=== PATIENT | female | born 1935 | race Caucasian/White ===

== ENCOUNTER 2017-08-03 08:00 | Day surgery (SDC) | payer MEDICARE, BC ==
[2017-08-01 08:55] VITALS: BMI 30.4
[~2017-08-03 08:00] MED LIST: LACTATED RINGERS 1,000 ML IV SCH
[2017-08-03] MEDS ORDERED: LIDOCAINE 1% 20 ML VIAL (10MG/ML) FOR IV START INTRADERMA ONE (08:12)
[2017-08-03 08:24] VITALS: RESP 16; TEMP 98.6
[2017-08-03] MEDS ORDERED: PROPOFOL 10 MG/ML 20 ML VIAL IV ONE (09:08)
--- NOTE | 2017-08-03 09:28 | P.PCN ---
Date of Procedure: 08/03/17 Procedure(s) Performed: BRIEF HISTORY: Patient is a 82-year-old [place] female, scheduled for an elective colonoscopy as a part of screening for colorectal neoplasia. PROCEDURE PERFORMED: Colonoscopy. PREOPERATIVE DIAGNOSIS: Screening for colon cancer. IV sedation per Anesthesia. PROCEDURE: After informed consent was obtained, the patient, was brought into the endoscopy unit. IV sedation was administered by Anesthesia under continuous monitoring. Digital rectal examination was normal. Initially the Olympus CF- 160 flexible video colonoscope was then inserted in the rectum, gradually advanced into the cecum without any difficulty. Careful examination was performed as the scope was gradually being withdrawn. Ileocecal valve and the appendiceal orifice were visualized and appeared normal. Prep was excellent. Mucosa of the cecum, ascending colon, transverse colon, descending colon, sigmoid colon, and rectum appeared normal. Moderate left sided diverticulosis seen. Retroflexion was performed in the rectum and no lesions were seen. The patient tolerated the procedure well. IMPRESSION: Normal-appearing colon from rectum to cecum with no evidence of colorectal neoplasia . Moderate sigmoidal diverticulosis. RECOMMENDATIONS: Findings of this examination were discussed with the patient as well as a family. She was advised to be on a high-fiber diet and take fiber supplements a regular basis..
[2017-08-03 09:49] VITALS: BP 128/72; PULSE 60
== END 2017-08-03 10:19 | disposition home or self-care (01) ==
LOC: ORWHC2ENDO 08:00
PROVIDERS: ATTEND Internal Medicine Gastroenterology
DX: Z12.11 Encounter for screening for malignant neoplasm of colon (principal); K57.30 Diverticulosis of large intestine without perforation or abscess without bleeding; I10 Essential (primary) hypertension; Z79.899 Other long term (current) drug therapy; Z88.0 Allergy status to penicillin; Z88.2 Allergy status to sulfonamides
CPT/HCPCS: J2704; G0121

== ENCOUNTER → 2017-09-19 | Outpatient (CLI) | payer MEDICARE, BC ==
--- NOTE | 2017-09-21 10:32 | MM ---
Reason for exam: screening (asymptomatic). Last mammogram was performed 1 year and 4 months ago. History: Patient is postmenopausal, has history of breast cancer at age 70, had previous chest radiation therapy at age 70, and had first child at age 37. Family history of breast cancer in sister at age 60. Lumpectomy of the right breast, August 07, 2005. Malignant right mammotome panel of the right breast, July 19, 2005. Radiation therapy of the right breast, 2005. Benign stereotactic core biopsy of the right breast, April 10, 2003. Took estrogen for 30 years 10 months beginning at age 40. Physical Findings: A clinical breast exam by your physician is recommended on an annual basis and results should be correlated with mammographic findings. MG 3D Screening Mammo W/Cad Bilateral CC and MLO view(s) were taken. Prior study comparison: May 31, 2016, bilateral MG 3d diag mammo w/cad [facility]. May 26, 2015, bilateral MG 3d diag mammo w/cad [facility]. The breast tissue is heterogeneously dense. This may lower the sensitivity of mammography. Finding #1: There is a typically benign multiple, lobulated, circumscribed round masses in the left breast back to 2014. Finding #2: There are typically benign calcifications in both breasts. Post therapy changes on the right breast. ASSESSMENT: Benign, BI-RAD 2 RECOMMENDATION: Routine screening mammogram of both breasts in 1 year.
== END | disposition home or self-care (01) ==
LOC: RADMAMWWP 08:23
PROVIDERS: ATTEND Family Medicine
DX: Z12.31 Encounter for screening mammogram for malignant neoplasm of breast (principal)
CPT/HCPCS: 77063; 77067

== ENCOUNTER → 2018-09-25 | Outpatient (CLI) | payer MEDICARE, BC ==
--- NOTE | 2018-09-26 11:19 | MM ---
Reason for exam: screening (asymptomatic). Last mammogram was performed 1 year ago. History: Patient is postmenopausal, has history of breast cancer at age 70, had previous chest radiation therapy at age 70, and had first child at age 37. Family history of breast cancer in sister at age 60. Lumpectomy of the right breast, August 07, 2005. Malignant right mammotome panel of the right breast, July 19, 2005. Radiation therapy of the right breast, 2005. Benign stereotactic core biopsy of the right breast, April 10, 2003. Took estrogen for 30 years 10 months beginning at age 40. Physical Findings: A clinical breast exam by your physician is recommended on an annual basis and results should be correlated with mammographic findings. MG 3D Screening Mammo W/Cad Bilateral CC and MLO view(s) were taken. Prior study comparison: September 19, 2017, bilateral MG 3d screening mammo w/cad. May 31, 2016, bilateral MG 3d diag mammo w/cad [facility]. The breast tissue is heterogeneously dense. This may lower the sensitivity of mammography. Finding #1: Architectural distortion in the right breast consistent with previous surgery. Finding #2: There are typically benign calcifications in both breasts. Previous mammotome biopsy in the right breast. There is a 10mm oval density left retroareolar region. ASSESSMENT: Incomplete: need additional imaging evaluation, BI-RAD 0 RECOMMENDATION: Special view mammogram of the left breast. If lesion persists on supplemental views, image directed ultrasound is recommended. [facility] will attempt to contact patient to return for supplemental views and ultrasound if indicated.
== END | disposition home or self-care (01) ==
LOC: RADMAMWWP 08:00
PROVIDERS: ATTEND Family Medicine
DX: Z12.31 Encounter for screening mammogram for malignant neoplasm of breast (principal)
CPT/HCPCS: 77063; 77067

== ENCOUNTER → 2018-09-30 | Outpatient (CLI) | payer MEDICARE, BC ==
--- NOTE | 2018-10-01 07:41 | MM ---
Reason for exam: additional evaluation requested from abnormal screening. Last mammogram was performed less than 1 month ago. History: Patient is postmenopausal, has history of breast cancer at age 70, had previous chest radiation therapy at age 70, and had first child at age 37. Family history of breast cancer in sister at age 60. Lumpectomy of the right breast, August 07, 2005. Malignant right mammotome panel of the right breast, July 19, 2005. Radiation therapy of the right breast, 2005. Benign stereotactic core biopsy of the right breast, April 10, 2003. Took estrogen for 30 years 10 months beginning at age 40. Physical Findings: Nurse did not find any significant physical abnormalities on exam. MG 3D Work Up W/Cad LT Spot compression CC, spot compression MLO, and LM view(s) were taken of the left breast. Prior study comparison: September 25, 2018, bilateral MG 3d screening mammo w/cad. September 19, 2017, bilateral MG 3d screening mammo w/cad. The breast tissue is heterogeneously dense. This may lower the sensitivity of mammography. Circumscribed nodule centrally persists, noted to be stable from multiple priors. These results were verbally communicated with the patient and result sheet given to the patient on 09/30/18. ASSESSMENT: Benign, BI-RAD 2 RECOMMENDATION: Return to routine screening mammogram schedule for both breasts.
== END | disposition home or self-care (01) ==
LOC: RADMAMWWP 14:18
PROVIDERS: ATTEND Family Medicine
DX: R92.8 Other abnormal and inconclusive findings on diagnostic imaging of breast (principal)
CPT/HCPCS: 77065; G0279; 77061

== ENCOUNTER → 2019-08-06 | Day surgery (SDC) | payer MEDICARE, BC ==
[2019-08-04 09:59] VITALS: BMI 31.2
[~2019-08-06] MED LIST changes: +ALPRAZolam 0.25 MG TAB PO PRN; +ALPRAZolam 0.5 MG TAB PO PRN; +ASPIRIN 325 MG TAB PO ONE; +ATORVASTATIN 80 MG TAB PO ONE; +HEPARIN SODIUM 1,000 UN/ML (10ML VL) ONE; +IOPAMIDOL-370 125ML BTL INJ ONE; +IV FLUID CONTINUATION 1,000 ML IV ONE; -LACTATED RINGERS 1,000 ML IV SCH; +LIDOCAINE 1% INJ 10MG/ML (20 ML MDV) ONE; +LIDOCAINE 1% INJ 10MG/ML (20 ML MDV) SQ ONE; +MIDAZOLAM 2 MG/2 ML VIAL IV ONE; +NITROGLYCERIN SL TABS 0.4 MG TAB SUBLINGUAL PRN; +RX INFO: IV CONTRAST WAS GIVEN 1 EACH MISC MISCELLANE PRN; +SODIUM CHLORIDE 0.9% 1,000 ML IV SCH; +SODIUM CHLORIDE 0.9% 1,000 ML in EMPTY BAG 1 BAG IV ONE; +VERAPAMIL 2.5 MG/ML 2 ML AMP ONE; +amLODIPine 5 MG TAB PO SCH
[2019-08-06 11:16] VITALS: TEMP 97.8
[2019-08-06] MEDS: BENZOCAINE SPRAY 1 CAN MUCOUS MEM ONE ×2 (12:07→12:12)
[2019-08-06 12:11] VITALS: RESP 16
[2019-08-06] MEDS: fentaNYL (PF) 50 MCG/ML 2 ML AMP IV ONE ×2 (12:21→12:23)
[2019-08-06] MEDS: VERAPAMIL SYRINGE (5 MG/10 ML) INTRAARTER ONE ×2 (13:05→13:23)
--- NOTE | 2019-08-06 13:14 | ECHOT ---
TRANSESOPHAGEAL ECHOCARDIOGRAM INDICATION: Evaluation of aortic valve. PROCEDURE: After explaining the procedure to the patient, its risks and complication. Blood pressure, heart rate, O2 saturation was monitored. The throat was sprayed with Cetacaine. He received 2 mg intravenous Versed, 50 mcg intravenous fentanyl. The probe was introduced into the esophagus without difficulty. Images were obtained. The probe was removed. There was no immediate complication. FINDINGS: Left atrial size is mildly dilated. Left atrial appendage is normal. The left ventricular size and systolic function normal. Concentric left ventricular hypertrophy was noted. The aortic valve is a tricuspid valve with severe calcification, reduced opening. By planimetry the valve area is 0.7 cm2. Mild calcification was noted. The tricuspid valve is normal, descending thoracic aorta revealed mild atherosclerotic changes. No pericardial effusion was noted. Contrast bubble study revealed no shunting across the interatrial septum. Doppler pulse wave and color Doppler obtained and revealed a mild mitral and tricuspid regurgitation as well as aortic regurgitation. The peak gradient across the aortic valve was 76 minute Hg with a mean of 41 mmHg consistent with severe aortic stenosis. There was no shunting by color Doppler study. CONCLUSION: 1. Dilated left atrium. 2. Normal left ventricular size and systolic function. Concentric left ventricular hypertrophy. 3. Mitral anulus calcification with mild mitral regurgitation. 4. Mild tricuspid and aortic regurgitation. 5. 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 6. Mild atherosclerotic changes of the descending thoracic aorta. 7. No pericardial effusion. 8. No shunting across the interatrial septum. MMODL / IJN: [id number] /
[2019-08-06 13:38] LABS: O2 Sat Blood Gas 64.5 %
[2019-08-06 13:39] LABS: O2 Sat Blood Gas 68.4 %
[2019-08-06 13:40] LABS: O2 Sat Blood Gas 92.1 %
--- NOTE | 2019-08-06 16:06 | CC ---
CARDIAC CATHETERIZATION REPORT DATE OF PROCEDURE: 08/06/2019 Mrs. Ramos is an 84-year-old female with a known history of hypertension, history of aortic stenosis with evidence of progression of aortic stenosis with symptoms of dyspnea on exertion. In view of that, recommendation was made regarding cardiac catheterization. The procedure, its risks and complications were discussed with the patient, who was in full understanding and agreement. PROCEDURE DESCRIPTION: Patient was brought to the laboratory equipment cleaner in a fasting, semi-sedated state after receiving fentanyl and Benadryl and achieving a moderate conscious sedated state. Using Xylocaine anesthesia and Seldinger technique, a 6-Divehi sheath was introduced in the right radial artery. Subsequently, using guidewire exchange technique, the basilic vein intravenous sheath was exchanged for a 6-Divehi sheath. Following that, right heart catheterization was performed using [place]-Arlene catheter. Multiple pressures and samples were obtained. Cardiac output by thermodilution was calculated. Following that, selective right and left coronary angiography was performed using a 5- Divehi 3- 1/2 bend right and left Anette catheters. Multiple views were taken of the arteries, including hemiaxial views. Following that, catheter and sheath were removed. Hemostasis was obtained with deployment of a TR band. There was no immediate complication. Patient was returned to her room in stable condition. Of note, the patient received 3500 units of intravenous heparin as well as intra-arterial verapamil. FINDINGS: SATURATION: Right atrial saturation was 65%, pulmonary artery saturation 68%, arterial saturation 92%, pulmonary artery systolic pressure of 50 with a diastolic of 15 and a mean of 25 mmHg. Right ventricular systolic pressure of 41 with an end-diastolic of 6. Right atrial A-wave of 14, V-wave of 12, with a mean of 8 mmHg. Cardiac output by thermodilution of 4.9 L/minute. Cardiac output by Daniel 3.7 L/min. CORONARY ARTERIES: LEFT MAIN: This is a short-sized vessel bifurcating into left circumflex, left anterior descending artery. Left main coronary artery has no evidence of high-grade stenosis. LEFT ANTERIOR DESCENDING ARTERY: This is a large-sized vessel reaching toward the apex with a wrap around the apex segment, tortuous throughout its course, giving rise to a moderately sized diagonal branch proximally. The left anterior descending artery as well as its branches have no evidence of obstructive coronary artery disease. LEFT CIRCUMFLEX: This is a nondominant, large-sized vessel giving rise to a large obtuse marginal branch. The left circumflex as well as its branches have no evidence of obstructive coronary artery disease. RIGHT CORONARY ARTERY: This is a large dominant vessel bifurcating distally into PDA and posterolateral segment and branches. The right coronary artery as well as its branches have no evidence of obstructive coronary artery disease. CONCLUSION: 1. Normal coronary arteries. 2. Mild pulmonary hypertension. RECOMMENDATIONS: In view of the finding of her severe aortic stenosis, the patient will be evaluated for aortic valve replacement by TAVR. Those findings and recommendation were discussed with the patient, and she is in full understanding and agreement. Duration of procedure was 26 minutes. MMSTEPANL / IJN: [id number] / BRIAN
--- NOTE | 2019-08-06 16:12 | LTR ---
August 06, 2019 To: Dr. Jarquin Re: Sherri Ramos (39) Dear Dr. Jarquin, I had the pleasure of performing cardiac catheterization on Mrs. Ramos at [facility] on August 06, 2019, and a full copy of the procedure note will be forwarded to you. In brief, she was found to have no evidence of obstructive coronary artery disease with severe aortic stenosis. In view of that, I would recommend proceeding with evaluation for aortic valve replacement. I will keep you updated on her progress. Thank you for allowing me to participate in her care. Please feel free to call with any questions. Sincerely yours, Doug Stephen MD MMSTEPANL / SVETLANAN: [id number] /
[2019-08-06 18:28] VITALS: BP 135/62; PULSE 75
== END | disposition home or self-care (01) ==
LOC: CATHCVL 10:53
PROVIDERS: ATTEND Internal Medicine Interventional Cardiology
DX: I08.3 Combined rheumatic disorders of mitral, aortic and tricuspid valves (principal); I27.20 Pulmonary hypertension, unspecified; I70.0 Atherosclerosis of aorta; I10 Essential (primary) hypertension; Z88.0 Allergy status to penicillin; Z88.2 Allergy status to sulfonamides; Z79.899 Other long term (current) drug therapy
CPT/HCPCS: 93312; 93320; 93325; 93456; 85018; 82810; C1769 ×2; C1751; C1894; J2250; J2001; J3010; J1644; Q9967

== ENCOUNTER → 2019-11-06 | Outpatient (CLI) | payer MEDICARE, BC ==
[2019-11-06 09:07] LABS: HCT 39.9 % (34.0-46.0); HGB 12.7 gm/dL (11.4-16.0); MCHC 31.8 g/dL (31.0-37.0); MCV 91.3 fL (80.0-100.0); Platelet Count 302 k/uL (150-450); RBC 4.37 m/uL (3.80-5.40); RDW 13.5 % (11.5-15.5); WBC 5.7 k/uL (3.8-10.6)
[2019-11-06 19:02] LABS: African American GFR (CKD) 98.4 (60.0-200.0); Albumin 4.1 g/dL (3.80-4.90); Albumin/Globulin Ratio 1.95 (1.60-3.17); Anion Gap 9.8 mmol/L (4.00-12.00); BUN/Creat Ratio 26.67 Ratio (12.00-20.00); Calcium 9.6 mg/dL (8.7-10.3); Carbon Dioxide 28.2 mmol/L (21.6-31.8); Globulin 2.1 g/dL (1.6-3.3); Non-African American GFR(CKD) 84.9 (60.0-200.0); Potassium 4.3 mmol/L (3.5-5.5); Total Bilirubin 0.5 mg/dL (0.3-1.2); Total Protein 6.2 g/dL (6.2-8.2)
== END | disposition home or self-care (01) ==
LOC: LABWHC1 08:24
PROVIDERS: ATTEND Student in an Organized Health Care Education/Training Program
DX: R06.02 Shortness of breath (principal)
CPT/HCPCS: 36415; 80053; 83880; 85027

== ENCOUNTER → 2021-01-14 | Outpatient (CLI) | payer MEDICARE, BC ==
--- NOTE | 2021-01-18 10:15 | MM ---
Reason for exam: screening (asymptomatic). Last mammogram was performed 1 year ago. History: Patient is postmenopausal, has history of breast cancer at age 70, had previous chest radiation therapy at age 70, and had first child at age 37. Family history of breast cancer in sister at age 60. Lumpectomy of the right breast, August 07, 2005. Malignant right mammotome panel of the right breast, July 19, 2005. Radiation therapy of the right breast, 2005. Benign stereotactic core biopsy of the right breast, April 10, 2003. Took estrogen for 30 years 10 months beginning at age 40. Physical Findings: A clinical breast exam by your physician is recommended on an annual basis and results should be correlated with mammographic findings. MG 3D Screening Mammo W/Cad Bilateral CC and MLO view(s) were taken. Prior study comparison: January 13, 2020, bilateral MG 3d screening mammo w/cad. September 25, 2018, bilateral MG 3d screening mammo w/cad. September 19, 2017, bilateral MG 3d screening mammo w/cad. May 31, 2016, bilateral MG 3d diag mammo w/cad [facility]. The breast tissue is heterogeneously dense. This may lower the sensitivity of mammography. Previous mammotome biopsy in the right breast. There is chronic nodularity in the left breast compared to 2016 on the CC view. Post surgical and post therapy change right breast. No significant changes when compared with prior studies. ASSESSMENT: Benign, BI-RAD 2 RECOMMENDATION: Routine screening mammogram of both breasts in 1 year.
== END | disposition home or self-care (01) ==
LOC: RADMAMWWP 07:59
PROVIDERS: ATTEND Family Medicine
DX: Z12.31 Encounter for screening mammogram for malignant neoplasm of breast (principal); Z78.0 Asymptomatic menopausal state; Z80.3 Family history of malignant neoplasm of breast
CPT/HCPCS: 77063; 77067

== ENCOUNTER → 2022-01-27 | Outpatient (CLI) | payer MEDICARE, BC ==
--- NOTE | 2022-01-30 08:50 | MM ---
Reason for Exam: Screening (asymptomatic). Last mammogram was performed 1 year(s) and 1 month(s) ago. Patient History: Menarche at age 14. First Full-Term at age 37. Late child-bearing (after 30). Left ovary removed at age 40. Right ovary removed at age 40. Hysterectomy at age 40. Postmenopausal. Breast cancer, age 70. Previous chest radiation therapy at age 70. Estrogen for 30 years, 10 months, from age 40 until age 70. 08/07/2005, Lumpectomy on the Right side. 07/19/2005, Malignant Core Biopsy on the right side. 04/10/2003, Benign Stereotactic Core Biopsy on the right side. 2005, Radiation Therapy on the right side. Sister had breast cancer, age 60. Prior Study Comparison: 09/30/2018 Left Diagnostic Mammogram, [facility]. 01/13/2020 Bilateral Screening Mammogram, [facility]. 01/14/2021 Bilateral Screening Mammogram, [facility]. Tissue Density: The breast tissue is heterogeneously dense. This may lower the sensitivity of mammography. Findings: Analyzed By CAD. Postsurgical and posttreatment changes right breast with fat necrosis calcifications. Microclip anterior right breast from prior biopsy. Unchanged slight nipple retraction on the right. Scattered benign coil cyst calcifications and some secretory calcifications. Vascular calcifications upper outer quadrant right breast. Chronic nodularity central left breast more apparent on 3-D images. No significant change from prior exams. Overall Assessment: Benign, BI-RAD 2 Management: Screening Mammogram of both breasts in 1 year. 1. Patient should continue monthly self breast exams. 2. A clinical breast exam by your physician is recommended on an annual basis. 3. This exam should not preclude additional follow-up of suspicious palpable abnormalities. Electronically signed and approved by: Champ Washington M.D. Radiologist
== END | disposition home or self-care (01) ==
LOC: RADMAMWWP 07:52
PROVIDERS: ATTEND Family Medicine
DX: Z12.31 Encounter for screening mammogram for malignant neoplasm of breast (principal); Z78.0 Asymptomatic menopausal state; Z85.3 Personal history of malignant neoplasm of breast; Z80.3 Family history of malignant neoplasm of breast
CPT/HCPCS: 77063; 77067

== ENCOUNTER → 2023-01-29 | Outpatient (CLI) | payer MEDICARE, BC ==
--- NOTE | 2023-01-29 09:50 | BD ---
EXAMINATION TYPE: Axial Bone Density DATE OF EXAM: 01/29/2023 CLINICAL HISTORY: 87 years old Female. ICD-10 CODE: Z78.0ASYMPTOMATIC MENOPAUSAL STATE Height: 59.2 Weight: 161 FRAX RISK QUESTIONS: Family History (Parent hip fracture): sister with hip fx History of Fracture in Adulthood: yes Secondary Osteoporosis: yes 3. Menopause before 45: 40 yrs, old RISK FACTORS HISTORY OF: hx of lt ankle fx as an adult Family History of Osteoporosis: yes, sister with fx Postmenopausal woman: yes, at age 40 yrs old, with hormones for about 20 yrs , Lost more than 2 inches in height since high school: yes Frequent falls: unsteady Hyperparathyroidism: no Adrenal Insufficiency: no MEDICATIONS: Additional Medications: bp meds, hx of radiation, vit d and calcium, Additional History: hx of breast cancer, hypertension, EXAM MEASUREMENTS: Bone mineral densitometry was performed using the [employer] System. Bone mineral density as measured about the Lumbar spine is: ----- L1-L4(G/cm2): 1.203 T Score Values are as follows: ----- L1: 0.8 ----- L2: -0.1 ----- L3: 0.1 ----- L4: -0.1 ----- L1-L4: 0.2 Z Score Values are as follows: ----- L1: 2.4 ----- L2: 1.6 ----- L3: 1.7 ----- L4: 1.6 ----- L1-L4: 1.9 Bone mineral density has: Increased 9.9% since study of: 07.05.2009 Bone mineral density about the R hip (g/cm2): 0.969 Bone mineral density about the L hip (g/cm2): 0.927 T Score values are as follows: -----R Neck: -1.6 -----L Neck: -1.8 -----R Total: -0.3 -----L Total: -0.6 Z Score values are as follows: -----R Neck: 0.6 -----L Neck: 0.4 -----R Total: 1.8 -----L Total: 1.5 Bone mineral density has: Increased 1.4% since study of: 07.05.2009 FRAX%s: The graph provided illustrates a 20.2% chance for a major osteoporotic fx and a 5.4% chance f or the hips probability for fx in 10 years time. IMPRESSION: Osteopenia (T Score between -2.5 and -1). There is slightly increased risk of fracture and the patient may be considered for treatment. Re-Screen 2-5 years. NOTE: T-SCORE=SD OF THE YOUNG ADULT MEAN.
--- NOTE | 2023-01-29 10:24 | MM ---
Reason for Exam: Screening (asymptomatic). Last screening mammogram was performed 12 month(s) ago. Patient History: Menarche at age 14. First Full-Term at age 37. Late child-bearing (after 30). Left ovary removed at age 40. Right ovary removed at age 40. Hysterectomy at age 40. Postmenopausal. Breast cancer, age 70. Previous chest radiation therapy at age 70. Estrogen for 30 years, 10 months, from age 40 until age 70. 08/07/2005, Lumpectomy on the Right side. 07/19/2005, Malignant Core Biopsy on the right side. 04/10/2003, Benign Stereotactic Core Biopsy on the right side. 2005, Radiation Therapy on the right side. Sister had breast cancer, age 60. Prior Study Comparison: 01/13/2020 Bilateral Screening Mammogram, [facility]. 01/14/2021 Bilateral Screening Mammogram, [facility]. 01/27/2022 Bilateral MG 3D screening mammo w/cad, [facility]. Tissue Density: The breast tissue is heterogeneously dense. This may lower the sensitivity of mammography. Findings: Analyzed By CAD. Postprocedural changes to the right breast. Benign-appearing calcifications bilaterally. There is no suspicious group of microcalcifications or new suspicious mass in either breast. Overall Assessment: Benign, BI-RAD 2 Management: Screening Mammogram of both breasts in [address] [facility] will attempt to contact patient to return for supplemental views and ultrasound if indicated. Patient should continue monthly self-breast exams. A clinical breast exam by your physician is recommended on an annual basis. This exam should not preclude additional follow-up of suspicious palpable abnormalities. Note on Luh scores and lifetime risk: 1. A Luh score greater than 3% is considered moderate risk. If this is the case, consider specialist referral to assess eligibility for a risk reducing agent. 2. If overall lifetime risk for the development of breast cancer is 20% or higher, the patient may qualify for future screening with alternating mammogram and breast MRI. Electronically signed and approved by: Juan Antonio Park DO
== END | disposition home or self-care (01) ==
LOC: RADMAMWWP 07:56
PROVIDERS: ATTEND Family Medicine
DX: Z12.31 Encounter for screening mammogram for malignant neoplasm of breast (principal); Z13.820 Encounter for screening for osteoporosis; M85.89 Other specified disorders of bone density and structure, multiple sites; Z78.0 Asymptomatic menopausal state
CPT/HCPCS: 77063; 77067; 77080

== ENCOUNTER → 2024-01-31 | Outpatient (CLI) | payer MEDICARE, BC ==
--- NOTE | 2024-02-20 12:48 | MM ---
Reason for Exam: Hx of breast cancer, conservation therapy. Last screening mammogram was performed 12 month(s) ago. Patient History: Menarche at age 14. First Full-Term at age 37. Late child-bearing (after 30). Left ovary removed at age 40. Right ovary removed at age 40. Hysterectomy at age 40. Postmenopausal. Breast cancer, age 70. Previous chest radiation therapy at age 70. Estrogen for 30 years, 10 months, from age 40 until age 70. 08/07/2005, Lumpectomy on the Right side. 07/19/2005, Malignant Core Biopsy on the right side. 04/10/2003, Benign Stereotactic Core Biopsy on the right side. 2005, Radiation Therapy on the right side. Sister had breast cancer, age 60. Prior Study Comparison: 05/31/2016 Bilateral Diagnostic Mammogram, [facility]. 09/19/2017 Bilateral Screening Mammogram, [facility]. 09/25/2018 Bilateral Screening Mammogram, [facility]. 09/30/2018 Left Diagnostic Mammogram, [facility]. 01/13/2020 Bilateral Screening Mammogram, [facility]. 01/14/2021 Bilateral Screening Mammogram, [facility]. 01/27/2022 Bilateral MG 3D screening mammo w/cad, [facility]. 01/29/2023 Bilateral MG 3D screening mammo w/cad, [facility]. Tissue Density: The breasts are heterogeneously dense, which may obscure small masses. Findings: Analyzed By CAD. Right breast surgical clips. Right breast: There is no suspicious group of microcalcifications or new suspicious mass. Benign-appearing calcifications right breast. Left breast: There is no suspicious group of microcalcifications or new suspicious mass. Overall Assessment: Benign, BI-RAD 2 Management: Screening Mammogram of both breasts in [address] [facility] will attempt to contact patient to return for supplemental views and ultrasound if indicated. Patient should continue monthly self-breast exams. A clinical breast exam by your physician is recommended on an annual basis. This exam should not preclude additional follow-up of suspicious palpable abnormalities. Note on Luh scores and lifetime risk: 1. A Luh score greater than 3% is considered moderate risk. If this is the case, consider specialist referral to assess eligibility for a risk reducing agent. 2. If overall lifetime risk for the development of breast cancer is 20% or higher, the patient may qualify for future screening with alternating mammogram and breast MRI. Electronically signed and approved by: Juan Antonio Park DO
== END | disposition home or self-care (01) ==
LOC: RADMAMWWP 12:00
PROVIDERS: ATTEND Internal Medicine
DX: Z12.31 Encounter for screening mammogram for malignant neoplasm of breast
CPT/HCPCS: 77063; 77067

== ENCOUNTER 2024-08-01 15:21 | Inpatient (IN) | payer MEDICARE, BC ==
--- NOTE | 2024-08-01 16:40 | ED ---
General Adult HPI - General Chief complaint: Shortness of Breath Stated complaint: LILIAN, Swelling in legs and feet Time Seen by Provider: 08/01/24 16:10 Source: patient, RN notes reviewed Mode of arrival: ambulatory Limitations: no limitations - History of Present Illness Initial comments: Patient is an 89-year-old female present to the emergency department with concerns with difficulty breathing. Onset of symptoms was around 1 week ago. Patient has had bilateral leg edema increasing over the past 4 weeks with approximately a 13 pound weight gain. No history of similar symptoms previously. Dyspnea does worsen with lying down as well as exertion. Minimal cough. Patient was diagnosed recently with A-fib and recently started on Eliquis. - Related Data Home Medications Medication Instructions Recorded Confirmed Apixaban [Eliquis] 2.5 mg PO BID 08/01/24 08/01/24 Calcium Carbonate [Calcium] 600 mg PO Q48H 08/01/24 08/01/24 Cholecalciferol (Vitamin D3) 50 mcg PO DAILY 08/01/24 08/01/24 [Vitamin D3 (50 Mcg = 2000 Iu)] Zora C 1000mg 1 tab PO DAILY 08/01/24 08/01/24 Pantothenic Acid (Unknown Dose) 1 tab PO DAILY 08/01/24 08/01/24 Potassium Gluconate 99 mg PO DAILY 08/01/24 08/01/24 amLODIPine [Norvasc] 10 mg PO DAILY 08/01/24 08/01/24 Allergies Allergy/AdvReac Type Severity Reaction Status Date / Time Penicillins Allergy Rash/Hives Verified 08/01/24 16:38 Sulfa (Sulfonamide AdvReac Nausea & Verified 08/01/24 16:38 Antibiotics) Vomiting Review of Systems ROS Statement: Those systems with pertinent positive or pertinent negative responses have been documented in the HPI. ROS Other: All systems not noted in ROS Statement are negative. Constitutional: Denies: fever Eyes: Denies: eye pain ENT: Denies: ear pain Respiratory: Reports: as per HPI, cough, dyspnea Cardiovascular: Reports: dyspnea on exertion, orthopnea, edema Endocrine: Reports: fatigue Gastrointestinal: Denies: abdominal pain Musculoskeletal: Denies: back pain Past Medical History Past Medical History: Atrial Fibrillation, Cancer, Hypertension, Pneumonia Additional Past Medical History / Comment(s): hx. breast cancer 2006, heart murmer, rt cataract removed History of Any Multi-Drug Resistant Organisms: None Reported Past Surgical History: Breast Surgery, Hysterectomy Additional Past Surgical History / Comment(s): right breast lumpectomy, colonoscopy, mastoid surg. as child Past Anesthesia/Blood Transfusion Reactions: No Reported Reaction Past Psychological History: No Psychological Hx Reported Smoking Status: Never smoker Past Alcohol Use History: None Reported Past Drug Use History: None Reported - Past Family History Sister(s) Family Medical History: Cancer Additional Family Medical History / Comment(s): breast General Exam Limitations: no limitations General appearance: alert, in no apparent distress Head exam: Present: normocephalic Eye exam: Present: normal appearance Neck exam: Present: normal inspection Respiratory exam: Present: normal lung sounds bilaterally Cardiovascular Exam: Present: tachycardia, irregular rhythm Expanded Peripheral pulses: 2+: Radial (R), Radial (L), Dorsalis Pedis (R), Dorsalis Pedis (L) GI/Abdominal exam: Present: soft. Absent: tenderness Extremities exam: Present: pedal edema. Absent: calf tenderness Neurological exam: Present: alert Psychiatric exam: Present: normal affect, normal mood Skin exam: Present: normal color Course Vital Signs 08/01/24 08/01/24 15:39 18:04 Temperature 97.7 F Pulse Rate 133 H 128 H Respiratory 20 18 Rate Blood Pressure 139/79 131/104 O2 Sat by Pulse 95 94 L Oximetry EKG Findings - EKG Results: EKG: interpreted by ERMD (Right axis. Q wave V1 V2. Nonspecific T waves.) EKG shows: tachycardia, atrial fibrillation Medical Decision Making - Medical Decision Making Was pt. sent in by a medical professional or institution (, PA, SCIENTIFIC INFORMATICS PROJECT LEADER, urgent care, hospital, or penitentiary...) When possible be specific @ -No Did you speak to anyone other than the patient for history (EMS, parent, family, police, friend...)? What history was obtained from this source @ -No Did you review nursing and triage notes (agree or disagree)? Why? @ -I reviewed and agree with nursing and triage notes Were old charts reviewed (outside hosp., previous admission, EMS record, old EKG, old radiological studies, urgent care reports/EKG's, penitentiary records)? Report findings @ -No old charts were reviewed Differential Diagnosis (chest pain, altered mental status, abdominal pain women, abdominal pain men, vaginal bleeding, weakness, fever, dyspnea, syncope, headache, dizziness, GI bleed, back pain, seizure, CVA, palpatations, mental health, musculoskeletal)? @ -Differential Dyspnea: Coronary syndrome, arrhythmia, tamponade, asthma, COPD, pulmonary embolism, pneumonia, pneumothorax, pulmonary effusion, anaphylaxis, diabetic ketoacidosis, flailed chest, pulmonary contusion, diaphragmatic rupture, anemia, neur omuscular, this is not meant to be an all-inclusive list. EKG interpreted by me (3pts min.). @ -As above X-rays interpreted by me (1pt min.). @ -Chest x-ray shows cardiomegaly and mild interstitial changes concerning for CHF CT interpreted by me (1pt min.). @ -None done U/S interpreted by me (1pt. min.). @ -None done What testing was considered but not performed or refused? (CT, X-rays, U/S, labs)? Why? @ -None What meds were considered but not given or refused? Why? @ -None Did you discuss the management of the patient with other professionals (professionals i.e. , PA, SCIENTIFIC INFORMATICS PROJECT LEADER, lab, RT, psych nurse, social media assistant, manager harbor, teacher, fire information officer, casework specialist)? Give summary @ -Case discussed with Dr. Gill who will admit covering Dr. Davis Was smoking cessation discussed for >3mins.? @ -No Was critical care preformed (if so, how long)? @ -31 minutes critical care Were there social determinants of health that impacted care today? How? (Homelessness, low income, unemployed, alcoholism, drug addiction, transportation, low edu. Level, literacy, decrease access to med. care, halfway, rehab)? @ -No Was there de-escalation of care discussed even if they declined (Discuss DNR or withdrawal of care, Hospice)? DNR status @ -No What co-morbidities impacted this encounter? (DM, HTN, Smoking, COPD, CAD, Cancer, CVA, ARF, Chemo, Hep., AIDS, mental health diagnosis, sleep apnea, morbid obesity)? @ -Onset of A-fib recently diagnosed within the last month or so Was patient admitted / discharged? Hospital course, mention meds given and route, prescriptions, significant lab abnormalities, going to OR and other pertinent info. @ -Patient presents with edema, orthopnea and exertional dyspnea. Patient has A-fib with RVR and mild CHF. Patient will be admitted with cardiac consult. Patient reevaluated and updated. Admission orders written. Undiagnosed new problem with uncertain prognosis? @ -No Drug Therapy requiring intensive monitoring for toxicity (Heparin, Nitro, In sulin, Cardizem)? @ -Patient is on Cardizem drip Were any procedures done? @ -No Diagnosis/symptom? @ -CHF, A-fib with RVR Acute, or Chronic, or Acute on Chronic? @ -Acute, acute Uncomplicated (without systemic symptoms) or Complicated (systemic symptoms)? @ -Default Side effects of treatment? @ -No Exacerbation, Progression, or Severe Exacerbation? @ -No Poses a threat to life or bodily function? How? (Chest pain, [place], [place], pneumonia, PE, COPD, DKA, ARF, appy, cholecystitis, CVA, Diverticulitis, Homicidal, Suicidal, threat to staff... and all critical care pts) @ -Threat to cardiac function - Lab Data Result diagrams: 08/01/24 16:43 08/01/24 16:43 Lab Results 08/01/24 08/01/24 08/01/24 Range/Units 16:43 16:43 16:43 WBC 8.0 (3.8-10.6) k/uL RBC 3.78 L (3.80-5.40) m/uL Hgb 10.8 L (11.4-16.0) gm/dL Hct 34.2 (34.0-46.0) % MCV 90.5 (80.0-100.0) fL MCH 28.5 (25.0-35.0) pg MCHC 31.5 (31.0-37.0) g/dL RDW 17.0 H (11.5-15.5) % Plt Count 373 (150-450) k/uL MPV 7.8 Neutrophils % 70 % Lymphocytes % 20 % Monocytes % 5 % Eosinophils % 4 % Basophils % 0 % Neutrophils # 5.7 (1.3-7.7) k/uL Lymphocytes # 1.6 (1.0-4.8) k/uL Monocytes # 0.4 (0-1.0) k/uL Eosinophils # 0.3 (0-0.7) k/uL Basophils # 0.0 (0-0.2) k/uL Hypochromasia Moderate Anisocytosis Slight PT 11.7 (10.0-12.5) sec INR 1.1 (<1.2) APTT 22.1 (22.0-30.0) sec Sodium 139 (137-145) mmol/L Potassium 3.8 (3.5-5.1) mmol/L Chloride 108 H (98-107) mmol/L Carbon Dioxide 24 (22-30) mmol/L Anion Gap 7 mmol/L BUN 18 H (7-17) mg/dL Creatinine 0.73 (0.52-1.04) mg/dL Est GFR (CKD-EPI)AfAm 86 (>60 ml/min/1.73 sqM) Est GFR (CKD-EPI)NonAf 75 (>60 ml/min/1.73 sqM) Glucose 102 H (74-99) mg/dL Calcium 9.0 (8.4-10.2) mg/dL Magnesium 2.0 (1.6-2.3) mg/dL Total Bilirubin 0.9 (0.2-1.3) mg/dL AST 59 H (14-36) U/L ALT 53 H (4-34) U/L Alkaline Phosphatase 111 (38-126) U/L Troponin I (0.000-0.034) ng/mL NT-Pro-B Natriuret Pep 2000 pg/mL Total Protein 6.0 L (6.3-8.2) g/dL Albumin 3.8 (3.5-5.0) g/dL TSH 2.080 (0.465-4.680) mIU/L Free T4 1.44 (0.78-2.19) ng/dL 08/01/24 Range/Units 16:43 WBC (3.8-10.6) k/uL RBC (3.80-5.40) m/uL Hgb (11.4-16.0) gm/dL Hct (34.0-46.0) % MCV (80.0-100.0) fL MCH (25.0-35.0) pg MCHC (31.0-37.0) g/dL RDW (11.5-15.5) % Plt Count (150-450) k/uL MPV Neutrophils % % Lymphocytes % % Monocytes % % Eosinophils % % Basophils % % Neutrophils # (1.3-7.7) k/uL Lymphocytes # (1.0-4.8) k/uL Monocytes # (0-1.0) k/uL Eosinophils # (0-0.7) k/uL Basophils # (0-0.2) k/uL Hypochromasia Anisocytosis PT (10.0-12.5) sec INR (<1.2) APTT (22.0-30.0) sec Sodium (137-145) mmol/L Potassium (3.5-5.1) mmol/L Chloride (98-107) mmol/L Carbon Dioxide (22-30) mmol/L Anion Gap mmol/L BUN (7-17) mg/dL Creatinine (0.52-1.04) mg/dL Est GFR (CKD-EPI)AfAm (>60 ml/min/1.73 sqM) Est GFR (CKD-EPI)NonAf (>60 ml/min/1.73 sqM) Glucose (74-99) mg/dL Calcium (8.4-10.2) mg/dL Magnesium (1.6-2.3) mg/dL Total Bilirubin (0.2-1.3) mg/dL AST (14-36) U/L ALT (4-34) U/L Alkaline Phosphatase (38-126) U/L Troponin I <0.012 (0.000-0.034) ng/mL NT-Pro-B Natriuret Pep pg/mL Total Protein (6.3-8.2) g/dL Albumin (3.5-5.0) g/dL TSH (0.465-4.680) mIU/L Free T4 (0.78-2.19) ng/dL Disposition Clinical Impression: Congestive heart failure, Atrial fibrillation with RVR Disposition: ADMITTED IP TO THIS HOSP Is patient prescribed a controlled substance at d/c from ED?: No Referrals: Juanpablo Emmanuel DO [Primary Care Provider] - 1-2 days Time of Disposition: 19:22
[2024-08-01 17:18] LABS: Anisocytosis Slight; Basophils % (A) 0 %; Eosinophils # (A) 0.3 k/uL (0-0.7); Eosinophils % (A) 4 %; HCT 34.2 % (34.0-46.0); HGB 10.8 gm/dL (11.4-16.0); Hypochromasia Moderate; Lymphocytes # (A) 1.6 k/uL (1.0-4.8); Lymphocytes % (A) 20 %; MCH 28.5 pg (25.0-35.0); MCHC 31.5 g/dL (31.0-37.0); MCV 90.5 fL (80.0-100.0); Mean Platelet Volume 7.8; Monocytes # (A) 0.4 k/uL (0-1.0); Monocytes % (A) 5 %; Neutrophils # (A) 5.7 k/uL (1.3-7.7); Neutrophils % (A) 70 %; Platelet Count 373 k/uL (150-450); RBC 3.78 m/uL (3.80-5.40)
[2024-08-01 17:29] LABS: INR 1.1 (<1.2); Partial Thromboplastin Time 22.1 sec (22.0-30.0); Prothrombin Time 11.7 sec (10.0-12.5)
--- NOTE | 2024-08-01 17:57 | XR ---
EXAMINATION TYPE: XR chest 2V DATE OF EXAM: 08/01/2024 5:50 PM COMPARISON: None. CLINICAL INDICATION: Female, 89 years old with history of dysrhythmia, TECHNIQUE: XR chest 2V view(s) obtained. FINDINGS: The heart size is enlarged. The pulmonary vasculature is normal. Small posterior pleural effusions are evident.. There is a chronic right rotator cuff tear with loss of the acromiohumeral joint space. IMPRESSION: 1. Cardiomegaly with small posterior pleural effusions [facility], , 08/01/2024 5:55 PM
[2024-08-01] MEDS: DILTIAZEM 125 MG in SODIUM CHLORIDE 0.9% 100 ML IV SCH (18:03)
[2024-08-01] MEDS: FUROSEMIDE 10 MG/ML 4 ML VIAL IV STA (18:03)
[2024-08-01] MEDS: DILTIAZEM DRIP BOLUS FROM BAG 1 MG SOLN IV ONE (18:04)
[2024-08-01 18:12] LABS: ALT 53 U/L (4-34); AST 59 U/L (14-36); African American GFR (CKD) 86 (>60 ml/min/1.73 sqM); Albumin 3.8 g/dL (3.5-5.0); Alkaline Phosphatase 111 U/L (38-126); Anion Gap 7 mmol/L; Blood Urea Nitrogen 18 mg/dL (7-17); Carbon Dioxide 24 mmol/L (22-30); Chloride 108 mmol/L (98-107); Glucose 102 mg/dL (74-99); Non-African American GFR(CKD) 75 (>60 ml/min/1.73 sqM); Potassium 3.8 mmol/L (3.5-5.1); Sodium 139 mmol/L (137-145); Total Bilirubin 0.9 mg/dL (0.2-1.3)
[2024-08-01 18:16] LABS: NT-Pro-B-Type Natriuretic Pept 2000 pg/mL
[2024-08-01 18:23] LABS: T4, Free (Free Thyroxine) 1.44 ng/dL (0.78-2.19)
[2024-08-01] MEDS: ASPIRIN 325 MG TAB PO STA (19:38)
[2024-08-01] MEDS: NITROGLYCERIN OINT 1 INCH/GM PACKET TOPICAL SCH (19:38)
[2024-08-01] MEDS: FUROSEMIDE 10 MG/ML 4 ML VIAL IV SCH (19:53)
[2024-08-01] MEDS: APIXABAN 2.5 MG TABLET PO SCH (20:24)
--- NOTE | 2024-08-02 02:31 | P.HPIM ---
History of Present Illness H&P Date: 08/01/24 Patient is an 89-year-old female with past medical history significant for atrial fibrillation maintained on Eliquis, aortic valve replacement (June 2023), and hypertension presents to the emergency department today for difficulty breathing. She states that about 3 weeks ago she noticed an increase in bilateral lower extremity swelling and then over the last week she has had increasing shortness of breath to the point where she has had lightheadedness with walking. She does deny dyspnea at rest. She also reports a 13 pound weight gain over the last 2-1/2 weeks as well as a nonproductive cough over the last week. Additionally over the last 2 weeks she has had orthopnea. Of note, she was recently diagnosed with atrial fibrillation (06/27/2024) and started Eliquis about 3 weeks ago. She reports palpitations with exertion over the last 3 weeks. She denies fever/chills, nausea/vomiting, chest pain. Furthermore, she denied PND. Initial vitals: BP 139/79, DC 133 bpm, RR 20, T 97.7 F, 95% on room air Initial labs: WBC 8, RBC 3.78, hemoglobin 10.8, hematocrit 34.2, platelets 373, sodium 139, potassium 3.8, chloride 108, BUN 18, creatinine 0.73, glucose 102, AST 59, ALT 43, alkaline phosphatase 111, BNP 2000, total protein 6, troponin x 1 < 0.012, TSH 2.08, free T4 1.44 Initial EKG: Atrial fibrillation with rapid ventricular rate of 114 bpm, QTc 387 ms ED documentation reviewed. Given: Aspirin 325 mg p.o. x 1, Cardizem 5 mg IV x 1, Lasix 40 mg IV x 1 Review of systems: Pertinent positives and negatives as discussed in HPI, a complete review of systems was performed and all other systems are negative. Social history: Tobacco: None reported Alcohol: None reported Recreational drugs: None reported Travel: None reported Sick contacts: None reported Physical examination: Vital signs reviewed General: Nontoxic, no distress, appears younger than stated age, well-appearing Derm: Warm, dry, intact, no cyanosis Head: Atraumatic, normocephalic, symmetric Eyes: EOMI, anicteric sclera, PERRL Ears: Normal appearing, no external lesions, hearing intact Nose: Normal appearing, no external lesions Mouth: No lip lesion, mucus membranes moist, no tonsilar hypertrophy or exudate Neck: Supple, without lesions, trachea midline Cardiovascular: S1-S2 regular, no murmur, 1+ bilateral lower extremity pitting edema to the knees Lungs: CTA bilateral, no wheezes, no rhonchi, no rales, no accessory muscle use Abdominal: Soft, non-tender to palpation, bowel sounds present Extremities: Muscle strength 5/5 in all extremities, radial pulses 2+ bilateral, posterior tibial pulses 1+ bilateral Neuro: Alert, oriented x 4, gross neurological examination did not reveal any focal deficits. Cranial nerves II to XII grossly intact. Psych: Appropriate affect and mood Assessment and Plan: Patient is an 89-year-old female with past medical history significant for atrial fibrillation maintained on Eliquis, aortic valve replacement (June 2023), and hypertension admitted for acute CHF exacerbation. Active #. Acute CHF exacerbation, newly diagnosed Continue with Lasix 40 mg IV every 12 hours Cardiology consulted Obtain echo Monitor I's and O's Continue cardiac monitoring Daily weights Monitor electrolytes #. Normocytic anemia, somewhat at baseline Monitor CBC for now #. Transaminitis, mild Likely due to ongoing CHF exacerbation with hepatic congestion Monitor CMP #. A-fib with RVR Continue with Cardizem drip 5 mg/hr for now Continue with Eliquis 2.5 mg p.o. twice daily Chronic #. Hypertension Continue with amlodipine 10 mg p.o. daily DVT prophylaxis: Eliquis 2.5 mg p.o. daily GI prophylaxis: Not indicated at this time The patient is admitted with an anticipated less than 2 midnight stay for evalua tion of acute CHF exacerbation. CODE STATUS: Full code Anticipated discharge place: Home Past Medical History Past Medical History: Atrial Fibrillation, Cancer, Hypertension, Pneumonia Additional Past Medical History / Comment(s): hx. breast cancer 2006, heart murmer, rt cataract removed History of Any Multi-Drug Resistant Organisms: None Reported Past Surgical History: Breast Surgery, Hysterectomy Additional Past Surgical History / Comment(s): right breast lumpectomy, colonoscopy, mastoid surg. as child Past Anesthesia/Blood Transfusion Reactions: No Reported Reaction Past Psychological History: No Psychological Hx Reported Smoking Status: Never smoker Past Alcohol Use History: None Reported Past Drug Use History: None Reported - Past Family History Sister(s) Family Medical History: Cancer Additional Family Medical History / Comment(s): breast Medications and Allergies Home Medications Medication Instructions Recorded Confirmed Type Apixaban [Eliquis] 2.5 mg PO BID 08/01/24 08/01/24 History Calcium Carbonate [Calcium] 600 mg PO Q48H 08/01/24 08/01/24 History Cholecalciferol (Vitamin D3) 50 mcg PO DAILY 08/01/24 08/01/24 History [Vitamin D3 (50 Mcg = 2000 Iu)] Zora C 1000mg 1 tab PO DAILY 08/01/24 08/01/24 History Pantothenic Acid (Unknown Dose) 1 tab PO DAILY 08/01/24 08/01/24 History Potassium Gluconate 99 mg PO DAILY 08/01/24 08/01/24 History amLODIPine [Norvasc] 10 mg PO DAILY 08/01/24 08/01/24 History Allergies Allergy/AdvReac Type Severity Reaction Status Date / Time Penicillins Allergy Rash/Hives Verified 08/01/24 16:38 Sulfa (Sulfonamide AdvReac Nausea & Verified 08/01/24 16:38 Antibiotics) Vomiting Physical Exam Vitals: Vital Signs Temp Pulse Resp BP Pulse Ox 08/01/24 18:04 128 H 18 131/104 94 L 08/01/24 15:39 97.7 F 133 H 20 139/79 95 Intake and Output 08/01/24 08/01/24 08/01/24 06:59 14:59 22:59 Output Total 1999 Balance -1999 Output: Urine 1999 Other: Weight 78.925 kg Results CBC & Chem 7: 08/01/24 16:43 08/01/24 16:43 Labs: Abnormal Lab Results - Last 24 Hours (Table) 08/01/24 08/01/24 Range/Units 16:43 16:43 RBC 3.78 L (3.80-5.40) m/uL Hgb 10.8 L (11.4-16.0) gm/dL RDW 17.0 H (11.5-15.5) % Chloride 108 H (98-107) mmol/L BUN 18 H (7-17) mg/dL Glucose 102 H (74-99) mg/dL AST 59 H (14-36) U/L ALT 53 H (4-34) U/L Total Protein 6.0 L (6.3-8.2) g/dL Thrombosis Risk Factor Assmnt - DVT/VTE Prophylaxis DVT/VTE Prophylaxis: Pharmacologic Prophylaxis ordered - Choose All That Apply Each Factor Represents 1 point: Heart failure (<1month), Obesity (BMI >25), Swollen legs (current) Each Risk Factor Represents 3 Points: Age 75 years or older Thrombosis Risk Factor Assessment Total Risk Factor Score: 6 Thrombosis Risk Factor Assessment Level: High Risk
[2024-08-02 07:53] LABS: Anisocytosis Slight; Basophils # (A) 0.1 k/uL (0-0.2); Basophils % (A) 1 %; Eosinophils # (A) 0.1 k/uL (0-0.7); Eosinophils % (A) 2 %; HGB 9.7 gm/dL (11.4-16.0); Hypochromasia Marked; Lymphocytes # (A) 0.9 k/uL (1.0-4.8); Lymphocytes % (A) 12 %; MCH 28.7 pg (25.0-35.0); MCHC 31.3 g/dL (31.0-37.0); MCV 91.7 fL (80.0-100.0); Mean Platelet Volume 7.4; Monocytes # (A) 0.4 k/uL (0-1.0); Monocytes % (A) 6 %; Neutrophils # (A) 5.9 k/uL (1.3-7.7); Neutrophils % (A) 79 %; Platelet Count 310 k/uL (150-450); RBC 3.38 m/uL (3.80-5.40); RDW 16.8 % (11.5-15.5); WBC 7.6 k/uL (3.8-10.6)
[2024-08-02 08:33] LABS: ALT 43 U/L (4-34); AST 45 U/L (14-36); African American GFR (CKD) >90 (>60 ml/min/1.73 sqM); Albumin 3.3 g/dL (3.5-5.0); Alkaline Phosphatase 79 U/L (38-126); Anion Gap 7 mmol/L; Blood Urea Nitrogen 17 mg/dL (7-17); Calcium 8.7 mg/dL (8.4-10.2); Carbon Dioxide 27 mmol/L (22-30); Chloride 104 mmol/L (98-107); Glucose 126 mg/dL (74-99); Non-African American GFR(CKD) 82 (>60 ml/min/1.73 sqM); Potassium 3.8 mmol/L (3.5-5.1); Sodium 138 mmol/L (137-145); Total Bilirubin 1.2 mg/dL (0.2-1.3); Total Protein 5.5 g/dL (6.3-8.2)
[2024-08-02] MEDS: amLODIPine 10 MG TAB PO SCH (08:42)
[2024-08-02] MEDS: ASCORBIC ACID 500 MG TAB PO SCH (08:42)
[2024-08-02] MEDS: ASPIRIN 81 MG PO SCH (08:42)
[2024-08-02] MEDS: CHOLECALCIFEROL 25 MCG (1000 IU) TABLET PO SCH (08:42)
[2024-08-02] MEDS: POTASSIUM GLUCONATE 99 MG PO SCH (08:44)
[2024-08-02] MEDS: [UNRECOGNIZED DRUG - OTHER] PO SCH (08:45)
[2024-08-02] MEDS ORDERED: ASPIRIN 325 MG TAB PO SCH (09:00)
--- NOTE | 2024-08-02 11:01 | P.CRDCN ---
History of Present Illness Consult date: 08/02/24 History of present illness: HISTORY OF PRESENTING ILLNESS: Patient is a 89-year-old female with past medical history of severe aortic stenosis status post aortic valve replacement done at [facility] by Dr. Jamison Nice in June 2023. She also has history of hypertension. Patient reports that in June 2024 she was told that she had atrial fibrillat ion when she was following up with Dr. Hilton Nice. For this she was started on beta-iggy but patient stopped taking it because it made her sick. This time she presented to the hospital because of increased worsening shortness of breath, lower extremity edema and 13 pound weight gain in 2-1/2 weeks. She was also having increased cough. On admission her vitals showed BP 127/79, heart rate 114 bpm, oxygen saturation 91% on 2 L oxygen. Her admission labs showed hemoglobin of 10.8, BUN of 18, creatinine of 0.7, minimal transaminitis, troponin was negative, NT-proBNP 2000, TSH of 2.0. REVIEW OF SYSTEMS: 14 point review of system is negative except what is mentioned above in HPI. PHYSICAL EXAMINATION: Neck: Brisk carotid upstroke, elevated JVP Lungs: Clear to auscultation. Heart: Irregularly irregular pulse with mild systolic murmur Abdomen: Soft nontender, positive bowel sounds. Extremities: 1+ pitting edema bilateral lower extremity Neuro: Alert, oritented, no focal deficits. Detailed neuro exam was not performed. ASSESSMENT: # Atrial fibrillation with RVR # Aortic stenosis status post TAVR June 2023 # Essential hypertension # Frail PLAN: Continue Cardizem drip at 5. Start metoprolol 50 mg twice daily. If heart rate is less than 100 bpm or patient is in sinus rhythm, discontinue Cardizem Continue Eliquis 2.5 mg, aspirin 81 mg. She is on low-dose of Eliquis because of frail status and age Continue Lasix 40 mg IV twice daily Obtain updated echocardiogram Obtain lipid and HbA1c level Thai Urbina MD, FACC, RPVI Thank you for allowing [facility] to participate in this patient's care. Feel free to reach out in case of any followup questions. Past Medical History Past Medical History: Atrial Fibrillation, Cancer, Hypertension, Pneumonia Additional Past Medical History / Comment(s): hx. breast cancer 2006, heart murmer, rt cataract removed History of Any Multi-Drug Resistant Organisms: None Reported Past Surgical History: Breast Surgery, Hysterectomy Additional Past Surgical History / Comment(s): right breast lumpectomy, colonoscopy, mastoid surg. as child Past Anesthesia/Blood Transfusion Reactions: No Reported Reaction Past Psychological History: No Psychological Hx Reported Smoking Status: Never smoker Past Alcohol Use History: None Reported Past Drug Use History: None Reported - Past Family History Sister(s) Family Medical History: Cancer Additional Family Medical History / Comment(s): breast Medications and Allergies Home Medications Medication Instructions Recorded Confirmed Type Apixaban [Eliquis] 2.5 mg PO BID 08/01/24 08/01/24 History Calcium Carbonate [Calcium] 600 mg PO Q48H 08/01/24 08/01/24 History Cholecalciferol (Vitamin D3) 50 mcg PO DAILY 08/01/24 08/01/24 History [Vitamin D3 (50 Mcg = 2000 Iu)] Zora C 1000mg 1 tab PO DAILY 08/01/24 08/01/24 History Pantothenic Acid (Unknown Dose) 1 tab PO DAILY 08/01/24 08/01/24 History Potassium Gluconate 99 mg PO DAILY 08/01/24 08/01/24 History amLODIPine [Norvasc] 10 mg PO DAILY 08/01/24 08/01/24 History Allergies Allergy/AdvReac Type Severity Reaction Status Date / Time Penicillins Allergy Rash/Hives Verified 08/01/24 16:38 Sulfa (Sulfonamide AdvReac Nausea & Verified 08/01/24 16:38 Antibiotics) Vomiting Physical Exam Vitals: Vital Signs Temp Pulse Resp BP Pulse Ox 08/02/24 08:52 113 H 17 135/89 94 L 08/02/24 06:21 120 H 18 123/82 93 L 08/02/24 05:39 114 H 18 118/82 91 L 08/02/24 03:48 112 H 16 123/74 93 L 08/02/24 01:29 114 H 19 127/79 91 L 08/01/24 22:52 121 H 18 121/90 94 L 08/01/24 18:04 128 H 18 131/104 94 L 08/01/24 15:39 97.7 F 133 H 20 139/79 95 Intake and Output 08/01/24 08/02/24 08/02/24 22:59 06:59 14:59 Output Total 1999 Balance -1999 Output: Urine 1999 Other: Weight 78.925 kg 78.925 kg Results 08/02/24 07:15 08/02/24 07:15 Cardiac Enzymes 08/01/24 08/01/24 08/02/24 Range/Units 16:43 16:43 07:15 AST 59 H 45 H (14-36) U/L Troponin I <0.012 (0.000-0.034) ng/mL Coagulation 08/01/24 Range/Units 16:43 PT 11.7 (10.0-12.5) sec APTT 22.1 (22.0-30.0) sec CBC 08/01/24 08/02/24 Range/Units 16:43 07:15 WBC 8.0 7.6 (3.8-10.6) k/uL RBC 3.78 L 3.38 L (3.80-5.40) m/uL Hgb 10.8 L 9.7 L (11.4-16.0) gm/dL Hct 34.2 31.0 L (34.0-46.0) % Plt Count 373 310 (150-450) k/uL Comprehensive Metabolic Panel 08/01/24 08/02/24 Range/Units 16:43 07:15 Sodium 139 138 (137-145) mmol/L Potassium 3.8 3.8 (3.5-5.1) mmol/L Chloride 108 H 104 (98-107) mmol/L Carbon Dioxide 24 27 (22-30) mmol/L BUN 18 H 17 (7-17) mg/dL Creatinine 0.73 0.60 (0.52-1.04) mg/dL Glucose 102 H 126 H (74-99) mg/dL Calcium 9.0 8.7 (8.4-10.2) mg/dL AST 59 H 45 H (14-36) U/L ALT 53 H 43 H (4-34) U/L Alkaline Phosphatase 111 79 (38-126) U/L Total Protein 6.0 L 5.5 L (6.3-8.2) g/dL Albumin 3.8 3.3 L (3.5-5.0) g/dL Current Medications Generic Name Dose Route Start Last Admin Trade Name Freq PRN Reason Stop Dose Admin Apixaban 2.5 mg 08/01/24 21:00 08/02/24 08:42 Apixaban 2.5 Mg Tablet PO 2.5 mg BID [facility] Administration Protocol Ascorbic Acid 1,000 mg 08/02/24 09:00 08/02/24 08:42 Ascorbic Acid 500 Mg Tab PO 1,000 mg DAILY JENNIFER Administration Aspirin 81 mg 08/02/24 09:00 08/02/24 08:42 Aspirin 81 Mg PO 81 mg DAILY JENNIFER Administration Calcium Carbonate/Glycine 500 mg 08/03/24 09:00 Calcium Carbonate 500 Mg Chewable PO Q48H JENNIFER Cholecalciferol 50 mcg 08/02/24 09:00 08/02/24 08:42 Cholecalciferol 25 Mcg (1000 Iu) Tablet PO 50 mcg DAILY [facility] Administration Furosemide 40 mg 08/01/24 20:00 08/02/24 08:42 Furosemide 10 Mg/Ml 4 Ml Vial IV 40 mg Q12H JENNIFER Administration Diltiazem HCl 125 mg/ Sodium 125 mls @ 5 mls/hr 08/01/24 16:45 08/01/24 18:03 Chloride IV 5 mg/hr .Q24H JENNIFER 5 mls/hr Administration 5 MG/HR Metoprolol Tartrate 50 mg 08/02/24 11:00 Metoprolol Tartrate 50 Mg Tab PO BID [facility] Nitroglycerin 1 inch 08/01/24 19:30 08/02/24 06:23 Nitroglycerin Oint 1 Inch/Gm Packet TOPICAL 08/02/24 19:29 1 inch Q6HR [facility] Administration Pantothenic Acid ( 1 tab 08/02/24 09:00 08/02/24 08:45 Unknown Dose) 1 Tab PO Not Given DAILY [facility] Potassium Gluconate 99 mg 08/02/24 09:00 08/02/24 08:44 [Potassium Gluconate PO Not Given ] 99 Mg Tablet DAILY [facility] Intake and Output 08/01/24 08/02/24 08/02/24 22:59 06:59 14:59 Output Total 1999 Balance -1999 - Output: Urine 1999 800 Other: Weight 78.925 kg 78.925 kg Patient Weight 08/03/24 06:59 Weight 78.925 kg 08/02/24 07:15 08/02/24 07:15
[2024-08-02 11:32] LABS: Magnesium 1.9 mg/dL (1.6-2.3)
[2024-08-02 11:42] LABS: NT-Pro-B-Type Natriuretic Pept 1930 pg/mL
[2024-08-02] MEDS: METOPROLOL TARTRATE 50 MG TAB PO SCH (11:48)
--- NOTE | 2024-08-02 14:47 | P.PN ---
Subjective Progress Note Date: 08/02/24 Hospital Course: 89-year-old female with past medical history significant for atrial fibrillation maintained on Eliquis, aortic valve replacement (June 2023), and hypertension presents to the emergency department today for difficulty breathing. Initial vitals: BP 139/79, MA 133 bpm, RR 20, T 97.7 F, 95% on room air Initial labs: WBC 8, RBC 3.78, hemoglobin 10.8, hematocrit 34.2, platelets 373, sodium 139, potassium 3.8, chloride 108, BUN 18, creatinine 0.73, glucose 102, AST 59, ALT 43, alkaline phosphatase 111, BNP 2000, total protein 6, troponin x 1 < 0.012, TSH 2.08, free T4 1.44 Initial EKG: Atrial fibrillation with rapid ventricular rate of 114 bpm, QTc 387 ms Patient seen by cardiology. Continued on Cardizem drip. Started on oral metoprolol. Pending echocardiogram. Subjective: Patient seen and examined at bedside. No acute events overnight. Claims that breathing is slightly improved. Pertinent positives and negatives as discussed above, a complete review of sy stems was performed and all other systems are negative. Vitals Signs Reviewed. General: Nontoxic, no distress, appears at stated age Derm: Warm, dry Head: Atraumatic, normocephalic, symmetric Eyes: EOMI, no lid lag, anicteric sclera Mouth: No lip lesion, mucus membranes moist Cardiovascular: S1S2 tachycardic, no murmur Lungs: Bibasilar rales, no accessory muscle use Abdominal: Soft, nontender to palpation, no guarding, no appreciable organomegaly Ext: No gross muscle atrophy, 2+ pitting edema, no contractures Neuro: CN II-XI grossly intact, no focal neuro deficits Psych: Alert, oriented, appropriate affect Data Reviewed Today: Pertinent Labs: WBC 7.6, hemoglobin 9.7, creatinine 0.6, proBNP 1900 Imaging: No new imaging Assessment and Plan: Patient is severely ill, needs close monitoring. Prognosis guarded. Acute CHF exacerbation Atrial fibrillation with RVR History of aortic stenosis status post TAVR Hypertension -Cardiology note reviewed, continue Cardizem drip 0.5 mg/h, started on metoprolol 50 twice daily -Continue IV Lasix 40 every 12 hours, monitor for electrolytes -Eliquis 2.5 twice daily -Echocardiogram pending Acute normocytic anemia -continue to monitor, no active bleeding Transaminitis -Likely congestive hepatopathy -Continue to monitor DVT ppx: Eliquis Code status: Full code Anticipated discharge place: Pending clinical course Anticipated discharge time: Pending clinical course Objective - Vital Signs Vital signs: Vital Signs Temp 97.7 F 08/01/24 15:39 Pulse 73 08/02/24 13:37 Resp 16 08/02/24 13:37 BP 98/63 08/02/24 13:37 Pulse Ox 91 L 08/02/24 13:37 FiO2 Intake & Output 08/01/24 08/02/24 08/02/24 18:59 06:59 18:59 Output Total 2800 1200 Balance -2800 -1200 Weight 78.925 kg 78.925 kg Output: Urine 2800 1200 - Labs CBC & Chem 7: 08/02/24 07:15 08/02/24 07:15 Labs: Abnormal Lab Results - Last 24 Hours (Table) 08/01/24 08/01/24 08/02/24 Range/Units 16:43 16:43 07:15 RBC 3.78 L 3.38 L (3.80-5.40) m/uL Hgb 10.8 L 9.7 L (11.4-16.0) gm/dL Hct 31.0 L (34.0-46.0) % RDW 17.0 H 16.8 H (11.5-15.5) % Lymphocytes # 0.9 L (1.0-4.8) k/uL Chloride 108 H (98-107) mmol/L BUN 18 H (7-17) mg/dL Glucose 102 H (74-99) mg/dL AST 59 H (14-36) U/L ALT 53 H (4-34) U/L Total Protein 6.0 L (6.3-8.2) g/dL Albumin (3.5-5.0) g/dL 08/02/24 Range/Units 07:15 RBC (3.80-5.40) m/uL Hgb (11.4-16.0) gm/dL Hct (34.0-46.0) % RDW (11.5-15.5) % Lymphocytes # (1.0-4.8) k/uL Chloride (98-107) mmol/L BUN (7-17) mg/dL Glucose 126 H (74-99) mg/dL AST 45 H (14-36) U/L ALT 43 H (4-34) U/L Total Protein 5.5 L (6.3-8.2) g/dL Albumin 3.3 L (3.5-5.0) g/dL
[2024-08-03 07:31] LABS: Chol/HDL Ratio 2.52 Ratio; LDL Cholesterol,Calculated 66.5 mg/dL (0.0-131.0)
[2024-08-03] MEDS: CALCIUM CARBONATE 500 MG CHEWABLE PO SCH (08:31)
[2024-08-03 09:51] LABS: Anisocytosis Slight; Basophils % (A) 0 %; Eosinophils # (A) 0.2 k/uL (0-0.7); Eosinophils % (A) 2 %; HCT 31.5 % (34.0-46.0); HGB 9.6 gm/dL (11.4-16.0); Hypochromasia Marked; Lymphocytes # (A) 1.9 k/uL (1.0-4.8); Lymphocytes % (A) 22 %; MCH 28.1 pg (25.0-35.0); MCHC 30.5 g/dL (31.0-37.0); MCV 91.9 fL (80.0-100.0); Mean Platelet Volume 7.7; Monocytes # (A) 0.6 k/uL (0-1.0); Monocytes % (A) 7 %; Neutrophils % (A) 68 %; Platelet Count 365 k/uL (150-450); RBC 3.43 m/uL (3.80-5.40); WBC 8.8 k/uL (3.8-10.6)
[2024-08-03 10:50] LABS: African American GFR (CKD) >90 (>60 ml/min/1.73 sqM); Anion Gap 7 mmol/L; Blood Urea Nitrogen 37 mg/dL (7-17); Calcium 8.7 mg/dL (8.4-10.2); Carbon Dioxide 31 mmol/L (22-30); Chloride 100 mmol/L (98-107); Glucose 116 mg/dL (74-99); Magnesium 1.9 mg/dL (1.6-2.3); Non-African American GFR(CKD) 79 (>60 ml/min/1.73 sqM); Sodium 138 mmol/L (137-145)
--- NOTE | 2024-08-03 11:16 | P.PN ---
Subjective Progress Note Date: 08/03/24 Hospital Course: 89-year-old female with past medical history significant for atrial fibrillation maintained on Eliquis, aortic valve replacement (June 2023), and hypertension presents to the emergency department today for difficulty breathing. Initial vitals: BP 139/79, SC 133 bpm, RR 20, T 97.7 F, 95% on room air Initial labs: WBC 8, RBC 3.78, hemoglobin 10.8, hematocrit 34.2, platelets 373, sodium 139, potassium 3.8, chloride 108, BUN 18, creatinine 0.73, glucose 102, AST 59, ALT 43, alkaline phosphatase 111, BNP 2000, total protein 6, troponin x 1 < 0.012, TSH 2.08, free T4 1.44 Initial EKG: Atrial fibrillation with rapid ventricular rate of 114 bpm, QTc 387 ms Patient seen by cardiology. Continued on Cardizem drip. Started on oral metoprolol. Pending echocardiogram. Subjective: Patient seen and examined at bedside. No acute events overnight. Claims that breathing is slightly improved. Pertinent positives and negatives as discussed above, a complete review of sy stems was performed and all other systems are negative. Vitals Signs Reviewed. General: Nontoxic, no distress, appears at stated age Derm: Warm, dry Head: Atraumatic, normocephalic, symmetric Eyes: EOMI, no lid lag, anicteric sclera Mouth: No lip lesion, mucus membranes moist Cardiovascular: S1S2 tachycardic, no murmur Lungs: Bibasilar rales, no accessory muscle use Abdominal: Soft, nontender to palpation, no guarding, no appreciable organomegaly Ext: No gross muscle atrophy, 2+ pitting edema up to mid griffin, no contractures Neuro: CN II-XI grossly intact, no focal neuro deficits Psych: Alert, oriented, appropriate affect Data Reviewed Today: Pertinent Labs: WBC 8.8, hemoglobin 9.6, bicarb 31, creatinine 0.68, magnesium 1.9 Imaging: No new imaging Assessment and Plan: Patient is severely ill, needs close monitoring. Prognosis guarded. Acute CHF exacerbation Atrial fibrillation with RVR History of aortic stenosis status post TAVR Hypertension -Cardiology following, continue Cardizem drip 0.5 mg/h -Increase metoprolol to 100 twice daily -Continue IV Lasix 40 every 12 hours, monitor for electrolytes -Eliquis 2.5 twice daily -Echocardiogram pending Acute normocytic anemia -continue to monitor, no active bleeding Transaminitis -Likely congestive hepatopathy -Continue to monitor DVT ppx: Eliquis Code status: Full code Anticipated discharge place: Pending clinical course Anticipated discharge time: Pending clinical course Objective - Vital Signs Vital signs: Vital Signs Temp 98.1 F 08/03/24 08:35 Pulse 113 H 08/03/24 08:35 Resp 18 08/03/24 08:35 BP 122/68 08/03/24 08:35 Pulse Ox 93 L 08/03/24 08:35 FiO2 Intake & Output 08/02/24 08/03/24 08/03/24 18:59 06:59 18:59 Intake Total 117.667 Output Total 1200 1000 Balance -1082.333 -1000 Weight 78.925 kg 78 kg Intake: Intake, IV Titration 117.667 Amount Diltiazem 125 mg In 117.667 Sodium Chloride 0.9% 100 ml @ 5 MG/HR 5 mls/hr IV .Q24H [facility] Rx#:[id number] Output: Urine 1200 1000 Other: Voiding Method External Catheter External Catheter # Voids 1 # Bowel Movements 0 - Labs CBC & Chem 7: 08/03/24 08:37 08/03/24 08:37 Labs: Abnormal Lab Results - Last 24 Hours (Table) 08/03/24 08/03/24 Range/Units 08:37 08:37 RBC 3.43 L (3.80-5.40) m/uL Hgb 9.6 L (11.4-16.0) gm/dL Hct 31.5 L (34.0-46.0) % MCHC 30.5 L (31.0-37.0) g/dL RDW 17.0 H (11.5-15.5) % Carbon Dioxide 31 H (22-30) mmol/L BUN 37 H (7-17) mg/dL Glucose 116 H (74-99) mg/dL
[2024-08-03] MEDS: METOPROLOL TARTRATE 50 MG TAB PO STA (12:15)
--- NOTE | 2024-08-03 15:42 | P.PN ---
Subjective Progress Note Date: 08/03/24 HISTORY OF PRESENTING ILLNESS: Patient is a 89-year-old female with past medical history of severe aortic stenosis status post aortic valve replacement done at [facility] by Dr. Jamison Nice in June 2023. She also has history of hypertension. Patient reports that in June 2024 she was told that she had atrial fibrillation when she was following up with Dr. Hilton Nice. For this she was started on beta-iggy but patient stopped taking it because it made her sick. This time she presented to the hospital because of increased worsening shortness of breath, lower extremity edema and 13 pound weight gain in 2-1/2 weeks. She was also having increased cough. On admission her vitals showed BP 127/79, heart rate 114 bpm, oxygen saturation 91% on 2 L oxygen. Her admission labs showed hemoglobin of 10.8, BUN of 18, creatinine of 0.7, minimal transaminitis, troponin was negative, NT-proBNP 2000, TSH of 2.0. Progress note 08/03/2024 Patient seen and examined at bedside this a.m. Patient reports that her shortness of breath has improved. She is in atrial fibrillation on telemetry which is rate controlled with average heart rate around 80 bpm. PHYSICAL EXAMINATION: Neck: Brisk carotid upstroke, elevated JVP Lungs: Clear to auscultation. Heart: Irregularly irregular pulse with mild systolic murmur Abdomen: Soft nontender, positive bowel sounds. Extremities: 1+ pitting edema bilateral lower extremity Neuro: Alert, oritented, no focal deficits. Detailed neuro exam was not performed. ASSESSMENT: # Acute CHF exacerbation # Atrial fibrillation with RVR # Aortic stenosis status post TAVR June 2023 # Essential hypertension # Frail Pertinent cardiac testing HbA1c 5.5, NT-proBNP 2000, tropes negative, TSH 2.08, LDL is less than 70. PLAN: Increase metoprolol to 100 mg twice daily. Discontinue Cardizem drip. Continue Eliquis 2.5 mg, aspirin 81 mg. She is on low-dose of Eliquis because of frail status and age Continue Lasix 40 mg IV twice daily. Consider transitioning to p.o. Bumex 1 mg p.o. daily, SGLT2 and low-dose Aldactone. Obtain updated echocardiogram Objective - Vital Signs Vital signs: Vital Signs Temp 98.1 F 08/03/24 12:00 Pulse 89 08/03/24 14:00 Resp 18 08/03/24 14:00 BP 122/64 08/03/24 12:00 Pulse Ox 95 08/03/24 12:00 FiO2 Intake & Output 08/02/24 08/03/24 08/03/24 18:59 06:59 18:59 Intake Total 117.667 150 Output Total 1200 1000 Balance -1082.333 -1000 150 Weight 78.925 kg 78 kg Intake: Intake, IV Titration 117.667 Amount Diltiazem 125 mg In 117.667 Sodium Chloride 0.9% 100 ml @ 5 MG/HR 5 mls/hr IV .Q24H [facility] Rx#:[id number] Oral 150 Output: Urine 1200 1000 Other: Voiding Method External Catheter External Catheter # Voids 1 # Bowel Movements 0 - Labs CBC & Chem 7: 08/03/24 08:37 08/03/24 08:37 Labs: Abnormal Lab Results - Last 24 Hours (Table) 08/03/24 08/03/24 Range/Units 08:37 08:37 RBC 3.43 L (3.80-5.40) m/uL Hgb 9.6 L (11.4-16.0) gm/dL Hct 31.5 L (34.0-46.0) % MCHC 30.5 L (31.0-37.0) g/dL RDW 17.0 H (11.5-15.5) % Carbon Dioxide 31 H (22-30) mmol/L BUN 37 H (7-17) mg/dL Glucose 116 H (74-99) mg/dL
[2024-08-03] MEDS: METOPROLOL TARTRATE 50 MG TAB PO SCH (20:31)
[2024-08-04 07:27] LABS: Anisocytosis Slight; Basophils # (A) 0.1 k/uL (0-0.2); Basophils % (A) 1 %; Eosinophils # (A) 0.2 k/uL (0-0.7); Eosinophils % (A) 3 %; HCT 27.9 % (34.0-46.0); HGB 8.8 gm/dL (11.4-16.0); Hypochromasia Moderate; Lymphocytes # (A) 2.1 k/uL (1.0-4.8); Lymphocytes % (A) 23 %; MCH 28.8 pg (25.0-35.0); MCHC 31.5 g/dL (31.0-37.0); MCV 91.4 fL (80.0-100.0); Mean Platelet Volume 7.4; Monocytes # (A) 0.6 k/uL (0-1.0); Monocytes % (A) 7 %; Neutrophils # (A) 6.1 k/uL (1.3-7.7); Neutrophils % (A) 66 %; Platelet Count 347 k/uL (150-450); RBC 3.05 m/uL (3.80-5.40); RDW 17.1 % (11.5-15.5); WBC 9.2 k/uL (3.8-10.6)
[2024-08-04 08:28] LABS: African American GFR (CKD) >90 (>60 ml/min/1.73 sqM); Anion Gap 3 mmol/L; Blood Urea Nitrogen 50 mg/dL (7-17); Calcium 8.4 mg/dL (8.4-10.2); Carbon Dioxide 34 mmol/L (22-30); Chloride 98 mmol/L (98-107); Glucose 91 mg/dL (74-99); Non-African American GFR(CKD) 79 (>60 ml/min/1.73 sqM); Potassium 3.5 mmol/L (3.5-5.1); Sodium 135 mmol/L (137-145)
[2024-08-04 09:47] LABS: % Iron Saturation 15.67 (12.00-45.00); Ferritin 55.9 ng/mL (10.0-291.0)
[2024-08-04] MEDS: DAPAGLIFLOZIN PROPANEDIOL 10 MG TABLET PO SCH (12:16)
--- NOTE | 2024-08-04 12:31 | CA ---
Transthoracic Echo Report Name: Sherri Ramos Age: 89 Gender: F : 1935 Exam Date: 08/04/2024 09:01 Exam Location: [facility] Ht (in): 61 Wt (lb): 174 Ordering Physician: Thai Urbina MD ([email or web address]) Attending/Referring Phys: Clamper Soraida Hurd RDCS Procedure CPT: Indications: Cardiomyopathy. Afib Cardiac Hx: TAVR Technical Quality: Fair Contrast 1: Total Dose (mL): Contrast 2: Total Dose (mL): MEASUREMENTS (Male / Female) Normal Values 2D ECHO LV Diastolic Diameter PLAX 3.8 cm 4.2 - 5.9 / 3.9 - 5.3 cm LV Systolic Diameter PLAX 1.7 cm IVS Diastolic Thickness 1.4 cm 0.6 - 1.0 / 0.6 - 0.9 cm LVPW Diastolic Thickness 1.3 cm 0.6 - 1.0 / 0.6 - 0.9 cm LV Relative Wall Thickness 0.7 RV Internal Dim ED PLAX 3.0 cm LVOT Diameter 1.5 cm Aortic Root Diameter 3.2 cm LA Systolic Diameter LX 5.5 cm 3.0 - 4.0 / 2.7 - 3.8 cm LV Diastolic Volume MOD BP 34.8 cm??? 67 - 155 / 56 - 104 cm??? LV Systolic Volume MOD BP 14.3 cm??? 22 - 58 / 19 - 49 cm??? LV Ejection Fraction MOD BP 59.0 % >= 55 % LV Cardiac Index MOD BP 952.1 cm???/min???m??? LV Diastolic Volume MOD 4C 37.6 cm??? LV Systolic Volume MOD 4C 16.2 cm??? LV Ejection Fraction MOD 4C 57.0 % LV Cardiac Index MOD 4C 994.1 cm???/min???m??? LV Diastolic Length 4C 5.3 cm LV Systolic Length 4C 4.9 cm LV Diastolic Volume MOD 2C 31.9 cm??? LV Systolic Volume MOD 2C 12.5 cm??? LV Ejection Fraction MOD 2C 60.9 % LV Cardiac Index MOD 2C 900.0 cm???/min???m??? LV Diastolic Length 2C 5.2 cm LV Systolic Length 2C 4.8 cm M-MODE Aortic Root Diameter MM 2.3 cm LA Systolic Diameter MM 5.1 cm LA Ao Ratio MM 2.2 DOPPLER AV Peak Velocity 243.5 cm/s AV Peak Gradient 23.7 mmHg AV Mean Velocity 187.6 cm/s AV Mean Gradient 15.6 mmHg AV Velocity Time Integral 45.5 cm AI Peak Velocity 291.6 cm/s AI Peak Gradient 34.0 mmHg AI Pressure Half Time 924.3 ms LVOT Peak Velocity 108.6 cm/s LVOT Peak Gradient 4.7 mmHg LVOT Velocity Time Integral 19.0 cm LVOT Stroke Volume 34.1 cm??? LVOT Stroke Volume Index 19.2 ml/m??? LVOT Cardiac Index 1580.4 cm???/min???m??? AV Area Cont Eq vti 0.7 cm??? AV Area Cont Eq pk 0.8 cm??? MV Peak Velocity 161.4 cm/s MV Peak Gradient 10.4 mmHg MV Mean Velocity 81.5 cm/s MV Mean Gradient 3.6 mmHg MV Velocity Time Integral 34.9 cm TR Peak Velocity 279.9 cm/s TR Peak Gradient 31.3 mmHg Right Atrial Pressure 20.0 mmHg Pulmonary Artery Systolic Pressu 51.3 mmHg Right Ventricular Systolic Press 51.3 mmHg FINDINGS Left Ventricle Left ventricular ejection fraction is estimated at 55-60%. Moderately increased septal wall thickness. Mildly increased posterior wall thickness. Normal left ventricular systolic function with no obvious regional wall motion abnormalities. Right Ventricle Mild right ventricular dilatation. Moderate pulmonary hypertension. Right Atrium Severe right atrial dilatation. Left Atrium Severely increased left atrial diameter. Mitral Valve Mild mitral stenosis MV Mean PG 3.6 mmHg.mitral annular calcification. Mild-to- moderate mitral regurgitation. Aortic Valve Normally functioning Ana bioprosthetic aortic valve with a peak velocity of 2.4 m/s, peak gradient 24mmHg, mean gradient 16mmHg. Mild paravalvular aortic regurgitation. Tricuspid Valve Annular dilatation of the tricuspid valve. Severe tricuspid regurgitation. No tricuspid stenosis. Pulmonic Valve Structurally normal pulmonic valve. Mild pulmonic regurgitation. No pulmonic stenosis. Pericardium No pericardial or pleural effusion. Aorta Normal size aortic root and proximal ascending aorta. CONCLUSIONS Technically difficult study for interpretation. Poorly visualized endocardium Normal LV systolic function Moderate pulmonary hypertension Mildly enlarged RV Bioprosthetic valve in aortic position with a mean gradient of 16 mmHg and mild perivalvular regurgitation Mild to moderate mitral regurgitation and calcified mitral valve Severe biatrial enlarged Severe tricuspid regurgitation Previewed by: Dr. Babar Valente MD (Electronically Signed) Final Date: 04 August 2024 12:29
--- NOTE | 2024-08-04 13:38 | P.PN ---
Subjective HISTORY OF PRESENT ILLNESS: Patient is a 89-year-old female with past medical history of severe aortic stenosis status post aortic valve replacement done at [facility] by Dr. Jamison Nice in June 2023. She also has history of hypertension. Patient reports that in June 2024 she was told that she had atrial fibrillation when she was following up with Dr. Hilton Nice. For this she was started on beta-iggy but patient stopped taking it because it made her sick. This time she presented to the hospital because of increased worsening shortness of breath, lower extremity edema and 13 pound weight gain in 2-1/2 weeks. She was also having increased cough. On admission her vitals showed BP 127/79, heart rate 114 bpm, oxygen saturation 91% on 2 L oxygen. Her admission labs showed hemoglobin of 10.8, BUN of 18, creatinine of 0.7, minimal transaminitis, troponin was negative, NT-proBNP 2000, TSH of 2.0. Progress note 08/03/2024 Patient seen and examined at bedside this a.m. Patient reports that her shortness of breath has improved. She is in atrial fibrillation on telemetry which is rate controlled with average heart rate around 80 bpm. 08/04/2024 Patient examined this morning at the bedside. Patient reports improvement in her shortness of breath. She currently denies chest pain or pressure. Bedside telemetry reveals atrial fibrillation with a heart rate between [id number]. Echocardiogram completed revealing ejection fraction 55 to 60%, no obvious regional wall motion abnormalities, mild to moderate mitral regurgitation, normally functioning CASSI bioprosthetic aortic valve with peak gradient 24 mmHg and mean gradient 16 mmHg, no perivalvular aortic regurgitation, severe tricuspid regurgitation. PHYSICAL EXAM: VITAL SIGNS: Reviewed. GENERAL: Well-developed in no acute distress. NECK: Supple. No JVD or thyromegaly LUNGS: Respirations even and unlabored. Lungs essentially clear to auscultation bilaterally. HEART: Irregular rate and rhythm. S1 and S2 heard. EXTREMITIES: Normal range of motion. No clubbing or cyanosis. Peripheral pulses intact. Trace bilateral lower extremity edema ASSESSMENT: Shortness of breath Acute on chronic heart failure with preserved EF, 55 to 60% Paroxysmal atrial fibrillation with RVR History of aortic stenosis status post TAVR, 06/2023 at [facility] Hypertension PLAN: Patient has been transitioned to oral diuretics per primary medicine Add Farxiga 10 mg daily Continue to monitor kidney function. Repeat in AM. Repeat BNP in a.m. Continue current dose of metoprolol 100 mg twice a day Continue additional cardiac medications Continue telemetry monitoring Further recommendations pending patient course Patient to follow-up postdischarge with Dr. Stephen Nurse practitioner note has been reviewed by physician. Signing provider agrees with the documented findings, assessment, and plan of care documented by [employer] as a scribe. Objective - Vital Signs Vital signs: Vital Signs Temp 97.9 F 08/04/24 04:15 Pulse 111 H 08/04/24 12:00 Resp 16 08/04/24 12:00 BP 114/76 08/04/24 12:00 Pulse Ox 93 L 08/04/24 12:00 FiO2 Intake & Output 08/03/24 08/04/24 08/04/24 18:59 06:59 18:59 Intake Total 400 180 Output Total 1200 Balance 400 -1200 180 Weight 73.3 kg Intake: Oral 400 180 Output: Urine 1200 Other: Voiding Method External Catheter Toilet Toilet External Catheter External Catheter # Voids 4 1 # Bowel Movements 1 - Labs CBC & Chem 7: 08/04/24 06:11 08/04/24 06:11 Labs: Abnormal Lab Results - Last 24 Hours (Table) 08/04/24 08/04/24 Range/Units 06:11 06:11 RBC 3.05 L (3.80-5.40) m/uL Hgb 8.8 L (11.4-16.0) gm/dL Hct 27.9 L (34.0-46.0) % RDW 17.1 H (11.5-15.5) % Sodium 135 L (137-145) mmol/L Carbon Dioxide 34 H (22-30) mmol/L BUN 50 H (7-17) mg/dL
--- NOTE | 2024-08-04 14:49 | P.PN ---
Subjective Progress Note Date: 08/04/24 89-year-old female with past medical history significant for atrial fibrillation maintained on Eliquis, aortic valve replacement (June 2023), and hypertension presents to the emergency department today for difficulty breathing. She states that about 3 weeks ago she noticed an increase in bilateral lower extremity swelling and then over the last week she has had increasing shortness of breath to the point where she has had lightheadedness with walking. She does deny dyspnea at rest. She also reports a 13 pound weight gain over the last 2-1/2 weeks as well as a nonproductive cough over the last week. Additionally over the last 2 weeks she has had orthopnea. Of note, she was recently diagnosed with atrial fibrillation (06/27/2024) and started Eliquis about 3 weeks ago. She reports palpitations with exertion over the last 3 weeks. She denies fever/chills, nausea/vomiting, chest pain. Furthermore, she denied PND. 08/02/24 - Patient seen and examined at bedside. No acute events overnight. Claims that breathing is slightly improved. 08/03/24 - Patient seen and examined at bedside. No acute events overnight. Claims that breathing is slightly improved. 08/04/24 - Patient seen and examined at bedside this morning. She had an echocardiogram completed this morning showed ejection fraction 55 to 60%. Plan is for patient to be discharged tomorrow following recheck of her proBNP per cardiology's request. She has no acute complaints at this time. REVIEW OF SYSTEMS: Pertinent positives and negatives noted in HPI. Physical Exam: General: nontoxic, no distress, appears at stated age Derm: warm, dry, intact Head: atraumatic, normocephalic, symmetric Eyes: EOMI, anicteric sclera Mouth: no lip lesion, mucus membranes moist Cardiovascular: S1 S2 reg, no murmur, rubs, or gallops Lungs: Bibasilar rales, no accessory muscle use Abdominal: soft, non-tender to palpataion, no appreciable organomegaly Extremities: no gross muscle atrophy, no contractures Neuro: Alert, Oriented, CNII-XII grossly intact, gait normal Psych: well appearing, appropriate affect Data Received Today: Labs: WBCs 9.2, hemoglobin 8.8, hematocrit 27.9 Imagining: Echocardiogram showed EF 55 to 60% Assessment and plan 89-year-old female with past medical history significant for atrial fibrillation maintained on Eliquis, aortic valve replacement (June 2023), and hypertension presents to the emergency department today for difficulty breathing. #Acute CHF exacerbation #Atrial fibrillation with RVR #History of aortic stenosis status post TAVR #Hypertension #Contraction alkalosis -Echocardiogram showed EF 55 to 60% -Increase metoprolol to 100 twice daily -Switched to Lasix 40 mg p.o. daily -Eliquis 2.5 twice daily -Farxiga 10 mg daily -Cardiology note reviewed, recheck proBNP in a.m. #Acute normocytic anemia -continue to monitor, no active bleeding #Transaminitis -Likely congestive hepatopathy -Continue to monitor DVT ppx: Eliquis 2.5mg twice daily Code status: Full code F: Consistent carbohydrate diet E: Replete as needed N: Heart healthy diet A: Ambulatory Anticipated discharge place: Home Anticipated discharge time: Tomorrow Dictation was produced using [employer] dictation software. please excuse any grammatical, word or spelling errors. I have seen and evaluated the patient today. Discussed with the resident and agree with the residents finding and plan as documented in the resident's note. Changes highlighted in blue font. Objective - Vital Signs Vital signs: Vital Signs Temp 97.9 F 08/04/24 04:15 Pulse 83 08/04/24 04:15 Resp 20 08/04/24 04:15 BP 109/75 08/04/24 04:15 Pulse Ox 93 L 08/04/24 04:15 FiO2 Intake & Output 08/03/24 08/04/24 08/04/24 18:59 06:59 18:59 Intake Total 400 Output Total 1200 Balance 400 -1200 Weight 73.3 kg Intake: Oral 400 Output: Urine 1200 Other: Voiding Method External Catheter Toilet External Catheter # Voids 4 1 # Bowel Movements 1 - Labs CBC & Chem 7: 08/04/24 06:11 08/04/24 06:11 Labs: Abnormal Lab Results - Last 24 Hours (Table) 08/03/24 08/03/24 08/04/24 Range/Units 08:37 08:37 06:11 RBC 3.43 L 3.05 L (3.80-5.40) m/uL Hgb 9.6 L 8.8 L (11.4-16.0) gm/dL Hct 31.5 L 27.9 L (34.0-46.0) % MCHC 30.5 L (31.0-37.0) g/dL RDW 17.0 H 17.1 H (11.5-15.5) % Carbon Dioxide 31 H (22-30) mmol/L BUN 37 H (7-17) mg/dL Glucose 116 H (74-99) mg/dL
[2024-08-04 20:37] LABS: Glucose,Whole Blood 211 mg/dL (70-110)
[2024-08-04 21:25] LABS: Anisocytosis Slight; Basophils % (A) 0 %; Eosinophils # (A) 0.1 k/uL (0-0.7); Eosinophils % (A) 1 %; HCT 22.8 % (34.0-46.0); Hypochromasia Moderate; Lymphocytes % (A) 20 %; MCH 29.2 pg (25.0-35.0); MCHC 31.9 g/dL (31.0-37.0); MCV 91.7 fL (80.0-100.0); Mean Platelet Volume 8.1; Monocytes # (A) 0.5 k/uL (0-1.0); Monocytes % (A) 6 %; Neutrophils # (A) 6.9 k/uL (1.3-7.7); Neutrophils % (A) 72 %; Platelet Count 363 k/uL (150-450); RBC 2.48 m/uL (3.80-5.40); RDW 17.5 % (11.5-15.5); WBC 9.7 k/uL (3.8-10.6)
[2024-08-04] MEDS: SODIUM CHLORIDE 0.9% 1,000 ML IV SCH (21:33)
[2024-08-04] MEDS: SODIUM CHLORIDE 0.9% 1,000 ML IV ONE (21:33)
[2024-08-04] MEDS: PANTOPRAZOLE 40 MG/10 ML VIAL IVP STA (21:35)
[2024-08-04] MEDS: DEXTROSE 5% IN WATER 100 ML with AMIODARONE 150 MG IV ONE (21:42)
[2024-08-04] MEDS: AMIODARONE 360 MG in DEXTROSE 5% IN WATER 200 ML IV ONE (21:42)
[2024-08-04 21:46] LABS: INR 1.2 (<1.2)
[2024-08-04 22:33] LABS: HGB 7.3 gm/dL (11.4-16.0)
[2024-08-04] MEDS ORDERED: Kcentra / Balfaxar PER PHARMACY 1 EACH MISC MISCELLANE PRN (22:36)
[2024-08-04] MEDS: SODIUM CHLORIDE 0.9% 2,000 ML IV ONE (22:49)
[2024-08-04] MEDS: EMPTY BAG 1 BAG with HUMAN PROTHROMBN CMPL-BALFAXAR 2,000 UNIT IV ONE (23:22)
[2024-08-05] MEDS: CALCIUM GLUCONATE IN NACL 1 GM in SALINE 1 100ML.BAG IVPB ONE (01:52)
[2024-08-05] MEDS: AMIODARONE 450 MG in DEXTROSE 5% IN WATER 250 ML IV SCH (03:12)
[2024-08-05 03:18] LABS: Anisocytosis Slight; Basophils % (A) 0 %; Eosinophils % (A) 0 %; HCT 24.4 % (34.0-46.0); HGB 8.2 gm/dL (11.4-16.0); Hypochromasia Slight; Lymphocytes # (A) 1.8 k/uL (1.0-4.8); Lymphocytes % (A) 14 %; MCH 31.1 pg (25.0-35.0); MCHC 33.8 g/dL (31.0-37.0); MCV 92.1 fL (80.0-100.0); Mean Platelet Volume 9.2; Monocytes # (A) 0.4 k/uL (0-1.0); Monocytes % (A) 3 %; Neutrophils # (A) 10.5 k/uL (1.3-7.7); Neutrophils % (A) 82 %; Platelet Count 238 k/uL (150-450); Poikilocytosis Slight; RBC 2.64 m/uL (3.80-5.40); RDW 16.3 % (11.5-15.5); WBC 12.8 k/uL (3.8-10.6)
--- NOTE | 2024-08-05 04:56 | P.CNPUL ---
History of Present Illness Consult date: 08/05/24 Requesting physician: Maria Alejandra Tate Reason for consult: other (Upper GI bleed) Chief complaint: Shortness of breath History of present illness: Patient is an 89-year-old female with past medical history significant for hypertension, severe aortic stenosis with previous TAVR performed June 2023 at [facility], atrial fibrillation anticoagulated on Eliquis. Presented the emergency department back on 08/01/2024 with a chief complaint of shortness of breath. Found to be in atrial fibrillation with rapid ventricular response. Initially, started on Cardizem infusion. Note that she is anticoagulated on Eliquis. Echocardiogram done this admission Left ventricular ejection fraction estimated at 55 to 60%, bioprosthetic aortic valve with mean gradient of 16 mmHg and mild perivalvular regurgitation, mild to moderate MR, moderate pulmonary hypertension, and severe tricuspid regurgitation. Chest x- ray done admission showing cardiomegaly with small bilateral pleural effusions. Patient was admitted to the cardiac stepdown unit. A rapid response was called around 20:18 last night. She was noted to be hypotensive and tachycardic with a heart rate in the 150s. She was having multiple episodes of bright red hematemesis. Most recent CBC: WBC count 9.7, hemoglobin 7.3, platelets 363. PT 13, INR 1.2, previous APTT 22. Most recent available CMP: Sodium 135, potassium 3.5, chloride 98, serum bicarb 34, BUN 50, creatinine 0.69, glucose 91. LFTs not elevated. NT proBNP 1930. Troponin less than 0.012 x 1. Patient currently being evaluated in room 257. Alert and oriented. Generating pale. hematemesis subsided, however, is now having large john stools. Approximately 6 or 7 episodes so far, with clots. Heart rate remains tachycardic around 110 bpm. Blood pressure also hypotensive and is most recently 75/59 mmHg. General surgery was consulted. Patient was transferred to the intensive care unit. 2 units PRBCs were ordered. Patient is going to be given a dose of Kcentra. Patient denies history of GI bleeding. Most recent screening colonoscopy from 2018. Denies NSAID use. Has been taking Eliquis as reported above, and this is obviously on hold. Previously started on amiodarone with IV bolus and continues on amiodarone at 1 mg/min. Two additional liters of normal saline fluid bolus ordered. Review of Systems Constitutional: Reports fatigue, Denies chills, Denies fever, Denies weight gain, Denies weight loss Ears, nose, mouth and throat: Denies dysphagia, Denies epistaxis Cardiovascular: Reports lightheadedness, Reports shortness of breath, Denies chest pain, Denies leg edema, Denies orthopnea, Denies palpitations, Denies syncope Respiratory: Reports dyspnea, Denies cough, Denies hemoptysis Gastrointestinal: Reports diarrhea, Reports hematemesis, Reports melena, Reports nausea, Reports vomiting, Denies abdominal pain, Denies hematochezia Genitourinary: Denies dysuria Musculoskeletal: Denies limitation of motion Integumentary: Denies rash, Denies unusual bruising Neurological: Denies seizures, Denies syncope Psychiatric: Denies anxiety, Denies depression Past Medical History Past Medical History: Atrial Fibrillation, Hypertension, Pneumonia Additional Past Medical History / Comment(s): hx. of breast mass in 2005, heart murmur History of Any Multi-Drug Resistant Organisms: None Reported Past Surgical History: Breast Surgery, Cardiac Valve Replacement, Hysterectomy Additional Past Surgical History / Comment(s): right breast biopsy, colonoscopy, mastoid surg. as child, aortic valve replacement 2023, R eye cataract sx Past Anesthesia/Blood Transfusion Reactions: No Reported Reaction Past Psychological History: No Psychological Hx Reported Smoking Status: Never smoker Past Alcohol Use History: None Reported Past Drug Use History: None Reported - Past Family History Sister(s) Family Medical History: Cancer Additional Family Medical History / Comment(s): breast Medications and Allergies Home Medications Medication Instructions Recorded Confirmed Type Apixaban [Eliquis] 2.5 mg PO BID 08/01/24 08/01/24 History Calcium Carbonate [Calcium] 600 mg PO Q48H 08/01/24 08/01/24 History Cholecalciferol (Vitamin D3) 50 mcg PO DAILY 08/01/24 08/01/24 History [Vitamin D3 (50 Mcg = 2000 Iu)] Zora C 1000mg 1 tab PO DAILY 08/01/24 08/01/24 History Pantothenic Acid (Unknown Dose) 1 tab PO DAILY 08/01/24 08/01/24 History Potassium Gluconate 99 mg PO DAILY 08/01/24 08/01/24 History amLODIPine [Norvasc] 10 mg PO DAILY 08/01/24 08/01/24 History Allergies Allergy/AdvReac Type Severity Reaction Status Date / Time Penicillins Allergy Rash/Hives Verified 08/01/24 16:38 Sulfa (Sulfonamide AdvReac Nausea & Verified 08/01/24 16:38 Antibiotics) Vomiting Physical Exam Vitals: Vital Signs Temp Pulse Pulse Resp BP BP Pulse Ox 08/05/24 00:45 98.6 F 110 H 20 97/66 98 08/05/24 00:30 101 H 16 75/59 97 08/05/24 00:25 36.5 F L 109 H 22 75/59 97 08/05/24 00:15 105 H 18 83/61 98 08/05/24 00:00 117 H 14 91/54 98 08/04/24 23:52 36.9 F L 126 H 11 L 91/54 98 08/04/24 23:50 105 H 15 91/54 99 08/04/24 23:40 103 H 15 87/59 100 08/04/24 23:30 108 H 16 96/43 08/04/24 23:20 101 H 12 96/43 98 08/04/24 23:02 106 H 15 114/96 96 08/04/24 23:00 99 08/04/24 22:45 114 H 13 65/54 97 08/04/24 22:42 96.4 F L 128 H 13 76/51 96 08/04/24 22:30 147 H 110/92 99 08/04/24 22:26 96.4 F L 137 H 12 110/98 99 08/04/24 22:15 137 H 16 71/60 99 08/04/24 22:00 133 H 17 87/65 95 08/04/24 21:45 124 H 24 95/79 100 08/04/24 21:30 141 H 35 H 81/43 94 L 08/04/24 21:15 147 H 14 97/84 97 08/04/24 21:00 158 H 81/43 08/04/24 20:45 69/49 08/04/24 20:37 138 H 17 08/04/24 20:27 105 H 16 108/68 99 08/04/24 20:00 127 H 89/70 08/04/24 16:00 108 H 16 94/65 94 L 08/04/24 12:00 111 H 16 114/76 93 L 08/04/24 08:00 116 H 16 103/67 93 L 08/04/24 04:15 97.9 F 83 20 109/75 93 L Intake and Output 08/04/24 08/04/24 08/05/24 14:59 22:59 06:59 Intake Total 540 1260 2530 Output Total 150 1100 310 Balance 164 045 5968 Intake: Intake, IV Titration 1110 2220 Amount Sodium Chloride 0.9% 1, 110 220 000 ml @ 110 mls/hr IV . Q9H6M [facility] Rx#:[id number] Sodium Chloride 0.9% 1, 1000 2000 000 ml @ 999 mls/hr IV . Q1H1M [facility] Rx#:[id number] Oral 540 150 Blood Product 0 310 Rc As-1 Unit 0 310 [id number] Rc Pheresis As-3 Unit 0 [id number] Output: Urine 150 800 210 Emesis 300 100 Other: Voiding Method Toilet External Catheter # Voids 1 0 # Bowel Movements 0 3 GENERAL EXAM: Alert, 89-year-old white female, generalized pallor, frequent large maroon stools HEAD: Normocephalic and atraumatic EYES: Normal reaction of pupils, equal size. NOSE: Clear with pink turbinates. THROAT: No erythema or exudates. NECK: No masses, no JVD. CHEST: No chest wall deformity. LUNGS: Equal air entry with no crackles, wheeze, rhonchi or dullness. On 2 L/min nasal cannula. No conversational dyspnea or accessory muscle use.. CVS: S1 and S2 normal with soft grade 1 systolic murmur murmur, irregular rhythm. No extra heart sounds ABDOMEN: Abdomen flat and soft, hyperactive bowel sounds, no hepatosplenomegaly, no guarding or rigidity. SPINE: No scoliosis or deformity SKIN: No rashes CENTRAL NERVOUS SYSTEM: No focal deficits, tone is normal in all 4 extremities. EXTREMITIES: There is no peripheral edema, clubbing, or cyanosis. Peripheral pulses are intact. Results - Laboratory Findings CBC and BMP: 08/05/24 00:39 08/04/24 06:11 PT/INR, D-dimer PT 13.0 sec (10.0-12.5) H 08/04/24 21:09 INR 1.2 (<1.2) H 08/04/24 21:09 Abnormal lab findings: Abnormal Labs 08/01/24 08/01/24 08/02/24 16:43 16:43 07:15 RBC 3.78 L 3.38 L Hgb 10.8 L 9.7 L Hct 31.0 L MCHC RDW 17.0 H 16.8 H Lymphocytes # 0.9 L PT INR Sodium Chloride 108 H Carbon Dioxide BUN 18 H Glucose 102 H POC Glucose (mg/dL) AST 59 H ALT 53 H Total Protein 6.0 L Albumin Crossmatch 08/02/24 08/03/24 08/03/24 07:15 08:37 08:37 RBC 3.43 L Hgb 9.6 L Hct 31.5 L MCHC 30.5 L RDW 17.0 H Lymphocytes # PT INR Sodium Chloride Carbon Dioxide 31 H BUN 37 H Glucose 126 H 116 H POC Glucose (mg/dL) AST 45 H ALT 43 H Total Protein 5.5 L Albumin 3.3 L Crossmatch 08/04/24 08/04/24 08/04/24 06:11 06:11 20:35 RBC 3.05 L Hgb 8.8 L Hct 27.9 L MCHC RDW 17.1 H Lymphocytes # PT INR Sodium 135 L Chloride Carbon Dioxide 34 H BUN 50 H Glucose POC Glucose (mg/dL) 211 H AST ALT Total Protein Albumin Crossmatch 08/04/24 08/04/24 08/04/24 21:00 21:09 21:09 RBC 2.48 L Hgb 7.3 L D Hct 22.8 L MCHC RDW 17.5 H Lymphocytes # PT 13.0 H INR 1.2 H Sodium Chloride Carbon Dioxide BUN Glucose POC Glucose (mg/dL) AST ALT Total Protein Albumin Crossmatch See Detail - Diagnostic Findings Chest x-ray: image reviewed Assessment and Plan Assessment: Acute upper GI bleed Acute blood loss anemia most recent hemoglobin down to 7.3 g/dL, 2 units PRBCs ordered Hypotension/hypovolemia, secondary to above Atrial fibrillation with rapid ventricular response, with better rate control, patient previously bolused with IV amiodarone and continues on 1 mg/min protocol Acute diastolic congestive heart failure Acute hypoxemic respiratory failure, currently on 2 L/min nasal cannula History of severe aortic stenosis status post TAVR at outside facility June,; echocardiogram done this admission estimates a left ventricular ejection fraction of 55 to 60%, bioprosthetic aortic valve with mean gradient of 16 mmHg and mild perivalvular regurgitation, mild to moderate MR, moderate pulmonary hypertension, and severe tricuspid regurgitation. History of hypertension History of breast cancer with previous right lumpectomy Plan: Patient's medications, labs, imaging reviewed Patient has 2 units PRBCs ordered She is going to receive an additional 2 L fluid bolus Continue serial H&H rechecks; transfuse for hemoglobin less than 7 g/dL Eliquis is on hold; Dose of Kcentra given NPO; Protonix 40 mg twice daily Continues on IV amiodarone protocol. Currently infusing at 1 mg/min General Surgery is consulted, awaiting further recommendations Patient's condition currently critical, she is transferred to the intensive care unit. I have personally seen and examined the patient, performed the documentation and the assessment and plan as written. Number of minutes spent on the visit:20 Time with Patient: Greater than 30
[2024-08-05 05:10] LABS: INR 1.2 (<1.2); Prothrombin Time 12.8 sec (10.0-12.5)
[2024-08-05 05:29] LABS: African American GFR (CKD) >90 (>60 ml/min/1.73 sqM); Anion Gap 6 mmol/L; Blood Urea Nitrogen 42 mg/dL (7-17); Calcium 6.5 mg/dL (8.4-10.2); Carbon Dioxide 22 mmol/L (22-30); Chloride 109 mmol/L (98-107); Glucose 193 mg/dL (74-99); Non-African American GFR(CKD) 84 (>60 ml/min/1.73 sqM); Sodium 137 mmol/L (137-145)
[2024-08-05 05:32] LABS: Potassium 3.5 mmol/L (3.5-5.1)
[2024-08-05 05:38] LABS: NT-Pro-B-Type Natriuretic Pept 1820 pg/mL
[2024-08-05 05:47] LABS: Partial Thromboplastin Time 20.1 sec (22.0-30.0)
[2024-08-05] MEDS ORDERED: Potassium Replacement Protocol 1 EACH MISC MISCELLANE PRN (06:00)
[2024-08-05] MEDS: METOCLOPRAMIDE 5 MG/ML 2 ML VIAL IVP STA (06:19)
[2024-08-05] MEDS: PANTOPRAZOLE 40 MG/10 ML VIAL IVP ONE (06:19)
[2024-08-05] MEDS: POTASSIUM CHLORIDE 10 MEQ in WATER FOR INJECTION 1 100ML.BAG IVPB SCH (06:21)
[2024-08-05] MEDS ORDERED: PROPOFOL 10 MG/ML 20 ML VIAL IV ONE (07:31)
[2024-08-05] MEDS ORDERED: PHENYLEPHRINE 10 MG/ML VIAL ONE (07:31)
[2024-08-05] MEDS ORDERED: LIDOCAINE 1% INJ 10MG/ML (20 ML MDV) ONE (07:31)
--- NOTE | 2024-08-05 07:35 | P.PN ---
Subjective Progress Note Date: 08/05/24 PROGRESS NOTE The patient is an 89-year-old female with a prior history of severe aortic stenosis, status post TAVR, performed at [facility], history of atrial fibrillation presented with symptoms of progressive dyspnea, peripheral edema and weight gain consistent with heart failure and preserved systolic function. She had an echocardiogram that showed a preserved systolic function with normal functioning of her TAVR and severe tricuspid regurgitation. Yesterday she started having evidence of GI bleeding with a drop in her hemoglobin, hypotension and tachycardia. She was transferred to the ICU and received 5 units of blood. She continues to have bleeding and she is scheduled to undergo an upper endoscopy today. She continues to be in atrial fibrillation with episodes of rapid ventricular response. She is on no vasopressor at this time. She feels tired and fatigued. Her breathing is stable. She denies any chest discomfort. She has no prior history of GI bleeding according to her. Medications: Amiodarone IV, Farxiga 10 mg daily, furosemide 40 mg daily, metoprolol tartrate 100 mg twice a day, Protonix, her anticoagulation is on hold. PHYSICAL EXAMINATION: Blood pressure 130/80 heart rate 130 LUNGS: [Clear to auscultation] HEART: [Irregular rate and rhythm, S1, S2. No S3. Systolic ejection murmur] ABDOMEN: [Soft, nontender, no organomegaly] EXTREMETIES: [No edema] LAB: Hemoglobin 8.2 after transfusion. BUN 42, creatinine 0.56, potassium 3.5. IMPRESSION: 1. Acute GI bleeding the patient who was anticoagulated for atrial fibrillation. Scheduled to undergo upper endoscopy today 2. Status post TAVR 3. Permanent atrial fibrillation with rapid ventricular response with the GI bleeding 4. CHF with preserved systolic function, improved PLAN: 1. Transfuse as needed 2. Continue IV amiodarone for now 3. Follow heart rate and adjust dose of beta-iggy 4. Patient will be evaluated for left atrial appendage closure device down the road 5. Depending on her progress further recommendations will be made Objective - Vital Signs Vital signs: Vital Signs Temp 98.4 F 08/05/24 04:09 Pulse 151 H 08/05/24 07:00 Resp 12 08/05/24 07:00 BP 130/81 08/05/24 07:00 Pulse Ox 97 08/05/24 07:00 FiO2 Intake & Output 0208/05/24 08/05/24 18:59 06:59 18:59 Intake Total 690 5523 100 Output Total 150 2225 30 Balance 540 3298 70 Weight 83.5 kg Intake: Intake, IV Titration 4090 100 Amount Calcium Gluconate in NaCl 100 1 gm In Saline 1 100ml. bag @ 100 mls/hr IVPB ONCE ONE Rx#:[id number] Potassium Chloride 10 meq 100 In Water For Injection 1 100ml.bag @ 100 mls/hr IVPB Q1HR [facility] Rx#: [id number] Sodium Chloride 0.9% 1, 990 000 ml @ 110 mls/hr IV . Q9H6M [facility] Rx#:[id number] Sodium Chloride 0.9% 1, 3000 000 ml @ 999 mls/hr IV . Q1H1M [facility] Rx#:[id number] Oral 690 Blood Product 1433 Rc As-1 Unit 310 [id number] Rc Pheresis As-3 Unit 283 [id number] Rc Pheresis As-3 Unit 276 [id number] Rc Pheresis As-3 Unit 282 [id number] Rc Pheresis As-3 Unit 282 [id number] Output: Urine 150 1325 30 Stool 500 Emesis 400 Other: Voiding Method Toilet Indwelling Catheter External Catheter # Voids 1 0 # Bowel Movements 0 2 - Labs CBC & Chem 7: 08/05/24 00:39 08/05/24 04:43 Labs: Abnormal Lab Results - Last 24 Hours (Table) 08/04/24 08/04/24 08/04/24 Range/Units 06:11 20:35 21:00 WBC (3.8-10.6) k/uL RBC (3.80-5.40) m/uL Hgb (11.4-16.0) gm/dL Hct (34.0-46.0) % RDW (11.5-15.5) % Neutrophils # (1.3-7.7) k/uL PT (10.0-12.5) sec INR (<1.2) APTT (22.0-30.0) sec Sodium 135 L (137-145) mmol/L Chloride (98-107) mmol/L Carbon Dioxide 34 H (22-30) mmol/L BUN 50 H (7-17) mg/dL Glucose (74-99) mg/dL POC Glucose (mg/dL) 211 H (70-110) mg/dL Calcium (8.4-10.2) mg/dL Crossmatch See Detail 08/04/24 08/04/24 08/05/24 Range/Units 21:09 21:09 00:39 WBC 12.8 H (3.8-10.6) k/uL RBC 2.48 L 2.64 L (3.80-5.40) m/uL Hgb 7.3 L D 8.2 L (11.4-16.0) gm/dL Hct 22.8 L 24.4 L (34.0-46.0) % RDW 17.5 H 16.3 H (11.5-15.5) % Neutrophils # 10.5 H (1.3-7.7) k/uL PT 13.0 H (10.0-12.5) sec INR 1.2 H (<1.2) APTT (22.0-30.0) sec Sodium (137-145) mmol/L Chloride (98-107) mmol/L Carbon Dioxide (22-30) mmol/L BUN (7-17) mg/dL Glucose (74-99) mg/dL POC Glucose (mg/dL) (70-110) mg/dL Calcium (8.4-10.2) mg/dL Crossmatch 08/05/24 08/05/24 08/05/24 Range/Units 00:39 03:27 04:43 WBC (3.8-10.6) k/uL RBC (3.80-5.40) m/uL Hgb (11.4-16.0) gm/dL Hct (34.0-46.0) % RDW (11.5-15.5) % Neutrophils # (1.3-7.7) k/uL PT 12.8 H (10.0-12.5) sec INR 1.2 H (<1.2) APTT 20.1 L (22.0-30.0) sec Sodium (137-145) mmol/L Chloride 109 H (98-107) mmol/L Carbon Dioxide (22-30) mmol/L BUN 42 H (7-17) mg/dL Glucose 193 H (74-99) mg/dL POC Glucose (mg/dL) (70-110) mg/dL Calcium 7.1 L 6.5 L (8.4-10.2) mg/dL Crossmatch
[2024-08-05] MEDS: EPINEPHrine 10 ML SYRINGE (0.1 MG/ML) MISCELLANE ONE (07:57)
[2024-08-05] MEDS: LACTATED RINGERS 500 ML IV ONE (07:57)
[2024-08-05 08:25] LABS: Basophils # (A) 0.1 k/uL (0-0.2); Basophils % (A) 0 %; Eosinophils % (A) 0 %; HCT 30.1 % (34.0-46.0); HGB 10.2 gm/dL (11.4-16.0); Hypochromasia Slight; Lymphocytes # (A) 5.5 k/uL (1.0-4.8); Lymphocytes % (A) 29 %; MCH 31.6 pg (25.0-35.0); MCHC 33.7 g/dL (31.0-37.0); MCV 93.8 fL (80.0-100.0); Mean Platelet Volume 8.3; Monocytes % (A) 5 %; Neutrophils # (A) 12.3 k/uL (1.3-7.7); Neutrophils % (A) 65 %; Platelet Count 171 k/uL (150-450); RBC 3.21 m/uL (3.80-5.40); RDW 15.2 % (11.5-15.5); WBC 19.1 k/uL (3.8-10.6)
[2024-08-05] MEDS ORDERED: FUROSEMIDE 40 MG TAB PO SCH (09:00)
[2024-08-05 10:00] LABS: Poikilocytosis (M) Present; Polychromasia Present
[2024-08-05] MEDS: PANTOPRAZOLE 40 MG/10 ML VIAL IVP SCH (10:59)
[2024-08-05] MEDS: METOPROLOL TARTRATE 50 MG TAB PO SCH (11:11)
[2024-08-05] MEDS: CALCIUM GLUCONATE IN NACL 2 GM in SALINE 1 100ML.BAG IVPB ONE (11:37)
--- NOTE | 2024-08-05 12:34 | P.CNPUL ---
History of Present Illness Consult date: 08/05/24 Chief complaint: GI bleeding History of present illness: Patient is an 89-year-old female with past medical history significant for hypertension, severe aortic stenosis with previous TAVR performed June 2023 at [facility], atrial fibrillation anticoagulated on Eliquis. Presented the emergency department back on 08/01/2024 with a chief complaint of shortness of breath. Found to be in atrial fibrillation with rapid ventricular response. Initially, started on Cardizem infusion. Note that she is anticoagulated on Eliquis. Echocardiogram done this admission Left ventricular ejection fraction estimated at 55 to 60%, bioprosthetic aortic valve with mean gradient of 16 mmHg and mild perivalvular regurgitation, mild to moderate MR, moderate pulmonary hypertension, and severe tricuspid regurgitation. Chest x- ray done admission showing cardiomegaly with small bilateral pleural effusions. Patient was admitted to the cardiac stepdown unit. A rapid response was called around 20:18 last night. She was noted to be hypotensive and tachycardic with a heart rate in the 150s. She was having multiple episodes of bright red hematemesis. Most recent CBC: WBC count 9.7, hemoglobin 7.3, platelets 363. PT 13, INR 1.2, previous APTT 22. Most recent available CMP: Sodium 135, potassium 3.5, chloride 98, serum bicarb 34, BUN 50, creatinine 0.69, glucose 91. LFTs not elevated. NT proBNP 1930. Troponin less than 0.012 x 1. Patient currently being evaluated in room 257. Alert and oriented. Generating pale. hematemesis subsided, however, is now having large john stools. Approximately 6 or 7 episodes so far, with clots. Heart rate remains tachycardic around 110 bpm. Blood pressure also hypotensive and is most recently 75/59 mmHg. General surgery was consulted. Patient was transferred to the intensive care unit. 2 units PRBCs were ordered. Patient is going to be given a dose of Kcentra. Patient denies history of GI bleeding. Most recent screening colonoscopy from 2018. Denies NSAID use. Has been taking Eliquis as reported above, and this is obviously on hold. Previously started on amiodarone with IV bolus and continues on amiodarone at 1 mg/min. Two additional liters of normal saline fluid bolus ordered. Overnight, the patient was being monitored closely and the most recent hemoglobin it was measured on this patient from this morning was at 10.2. Noted the patient underwent an EGD today and the patient was found to have a ulcer within the hiatal hernia. Epinephrine injection was done. After arrival back to the intensive care unit, the patient had another melanotic stools. In add ition to units of packed RBC was ordered by general surgery. In summary, the patient has received a total of 5 units of packed RBC, she will be given an 2 additional units of fresh frozen plasma and 1 unit of cryoprecipitate. At the same time, the patient remains in atrial fibrillation with RVR. The patient is currently on amiodarone drip. Blood pressure is well-maintained. No significant hypotension at this point in time. She is awake and alert. She is NPO. Review of Systems Constitutional: Reports fatigue, Denies chills, Denies fever, Denies weight gain, Denies weight loss Ears, nose, mouth and throat: Denies dysphagia, Denies epistaxis Cardiovascular: Reports lightheadedness, Reports shortness of breath, Denies chest pain, Denies leg edema, Denies orthopnea, Denies palpitations, Denies syncope Respiratory: Reports dyspnea, Denies cough, Denies hemoptysis Gastrointestinal: Reports diarrhea, Reports hematemesis, Reports melena, Reports nausea, Reports vomiting, Denies abdominal pain, Denies hematochezia Genitourinary: Denies dysuria Musculoskeletal: Denies limitation of motion Integumentary: Denies rash, Denies unusual bruising Neurological: Denies seizures, Denies syncope Psychiatric: Denies anxiety, Denies depression Past Medical History Past Medical History: Atrial Fibrillation, Hypertension, Pneumonia Additional Past Medical History / Comment(s): hx. of breast mass in 2005, heart murmur History of Any Multi-Drug Resistant Organisms: None Reported Past Surgical History: Breast Surgery, Cardiac Valve Replacement, Hysterectomy Additional Past Surgical History / Comment(s): right breast biopsy, colonoscopy, mastoid surg. as child, aortic valve replacement 2023, R eye cataract sx Past Anesthesia/Blood Transfusion Reactions: No Reported Reaction Past Psychological History: No Psychological Hx Reported Smoking Status: Never smoker Past Alcohol Use History: None Reported Past Drug Use History: None Reported - Past Family History Sister(s) Family Medical History: Cancer Additional Family Medical History / Comment(s): breast Medications and Allergies Home Medications Medication Instructions Recorded Confirmed Type Apixaban [Eliquis] 2.5 mg PO BID 08/01/24 08/01/24 History Calcium Carbonate [Calcium] 600 mg PO Q48H 08/01/24 08/01/24 History Cholecalciferol (Vitamin D3) 50 mcg PO DAILY 08/01/24 08/01/24 History [Vitamin D3 (50 Mcg = 2000 Iu)] Zora C 1000mg 1 tab PO DAILY 08/01/24 08/01/24 History Pantothenic Acid (Unknown Dose) 1 tab PO DAILY 08/01/24 08/01/24 History Potassium Gluconate 99 mg PO DAILY 08/01/24 08/01/24 History amLODIPine [Norvasc] 10 mg PO DAILY 08/01/24 08/01/24 History Allergies Allergy/AdvReac Type Severity Reaction Status Date / Time Penicillins Allergy Rash/Hives Verified 08/01/24 16:38 Sulfa (Sulfonamide AdvReac Nausea & Verified 08/01/24 16:38 Antibiotics) Vomiting Physical Exam Vitals: Vital Signs Temp Pulse Pulse Resp BP BP Pulse Ox 08/05/24 12:22 100.2 F H 126 H 16 88/62 97 08/05/24 11:45 126 H 20 117/90 96 08/05/24 11:30 133 H 17 100/76 97 08/05/24 11:15 124 H 28 H 107/70 97 08/05/24 11:00 99.9 F H 131 H 16 102/67 98 08/05/24 10:45 115 H 14 85/65 97 08/05/24 10:40 99.0 F 123 H 15 102/67 97 08/05/24 10:33 99.1 F 147 H 14 100/76 95 08/05/24 10:30 128 H 21 115/56 99 08/05/24 10:15 99.1 F 137 H 17 115/56 99 08/05/24 10:00 131 H 22 117/78 99 08/05/24 09:45 131 H 15 117/78 98 08/05/24 09:30 130 H 21 109/81 08/05/24 09:15 154 H 15 110/67 98 08/05/24 09:11 99.3 F 140 H 20 117/78 95 08/05/24 09:02 100.0 F H 141 H 18 119/77 97 08/05/24 09:00 154 H 21 128/78 97 08/05/24 08:59 100.0 F H 142 H 20 128/78 97 08/05/24 08:49 100.0 F H 141 H 20 128/78 97 08/05/24 08:45 149 H 11 L 157/125 95 08/05/24 08:38 96 08/05/24 08:30 130 H 17 106/84 96 08/05/24 08:29 100.0 F H 150 H 20 106/84 95 08/05/24 08:19 100.4 F H 138 H 19 81/61 95 08/05/24 08:15 158 H 21 81/61 95 08/05/24 08:00 100.0 F H 152 H 29 H 110/97 99 08/05/24 07:45 125 H 20 121/111 93 L 08/05/24 07:30 149 H 19 92/51 97 08/05/24 07:15 154 H 18 123/109 97 08/05/24 07:00 151 H 12 130/81 97 08/05/24 06:45 144 H 18 114/78 96 08/05/24 06:30 144 H 25 H 95/80 96 08/05/24 06:15 114 H 21 98/65 94 L 08/05/24 06:00 113 H 22 107/61 96 08/05/24 05:45 137 H 20 119/65 96 08/05/24 05:30 117 H 31 H 118/88 96 08/05/24 05:15 110 H 106/79 96 08/05/24 05:00 105 H 106/85 97 08/05/24 04:45 116 H 22 106/85 96 08/05/24 04:30 117 H 9 L 119/103 97 08/05/24 04:15 106 H 20 102/83 97 08/05/24 04:09 98.4 F 114 H 24 102/83 96 08/05/24 04:00 114 H 20 101/63 97 08/05/24 03:45 98 21 106/77 97 08/05/24 03:42 97.3 F L 115 H 21 101/63 97 08/05/24 03:30 101 H 23 96/67 97 08/05/24 03:22 98.4 F 102 H 22 96/67 97 08/05/24 03:15 116 H 14 80/57 97 08/05/24 03:00 105 H 13 108/93 98 08/05/24 02:57 98.1 F 105 H 14 80/57 98 08/05/24 02:45 109 H 14 119/100 97 08/05/24 02:42 98.6 F 109 H 18 100/63 97 08/05/24 02:30 130 H 28 H 104/66 96 08/05/24 02:22 98.6 F 105 H 23 108/93 98 08/05/24 02:15 85/64 98 08/05/24 02:00 115 H 20 80/62 96 08/05/24 01:54 97.7 F 107 H 18 80/62 97 08/05/24 01:45 108 H 10 L 83/64 97 08/05/24 01:40 97.7 F 113 H 15 80/62 98 08/05/24 01:30 117 H 22 94/51 99 08/05/24 01:25 36.6 F L 108 H 17 94/51 98 08/05/24 01:20 36.6 F L 117 H 13 94/51 99 08/05/24 01:15 115 H 25 H 93/57 98 08/05/24 01:01 36.9 F L 106 H 21 93/57 99 08/05/24 01:00 98 17 97/66 98 08/05/24 00:45 98.6 F 106 H 19 78/62 97 08/05/24 00:30 101 H 16 75/59 97 08/05/24 00:25 36.5 F L 109 H 22 75/59 97 08/05/24 00:15 105 H 18 83/61 98 08/05/24 00:00 117 H 14 91/54 98 08/04/24 23:52 36.9 F L 126 H 11 L 91/54 98 08/04/24 23:50 105 H 15 91/54 99 08/04/24 23:40 103 H 15 87/59 100 08/04/24 23:30 108 H 16 96/43 08/04/24 23:20 101 H 12 96/43 98 08/04/24 23:02 106 H 15 114/96 96 08/04/24 23:00 99 08/04/24 22:45 114 H 13 65/54 97 08/04/24 22:42 96.4 F L 128 H 13 76/51 96 08/04/24 22:30 147 H 110/92 99 08/04/24 22:26 96.4 F L 137 H 12 110/98 99 08/04/24 22:15 137 H 16 71/60 99 08/04/24 22:00 133 H 17 87/65 95 08/04/24 21:45 124 H 24 95/79 100 08/04/24 21:30 141 H 35 H 81/43 94 L 08/04/24 21:15 147 H 14 97/84 97 08/04/24 21:00 158 H 81/43 08/04/24 20:45 69/49 08/04/24 20:37 138 H 17 08/04/24 20:27 105 H 16 108/68 99 08/04/24 20:00 127 H 89/70 08/04/24 16:00 108 H 16 94/65 94 L Intake and Output 08/04/24 08/05/24 08/05/24 22:59 06:59 14:59 Intake Total 1260 4413 1850 Output Total 1100 1125 210 Balance 160 3288 1640 Intake: IV 640 Sodium Chloride 0.9% 1, 440 000 ml @ 110 mls/hr IV . Q9H6M [facility] Rx#:[id number] Intake, IV Titration 1110 2980 400 Amount Calcium Gluconate in NaCl 100 1 gm In Saline 1 100ml. bag @ 100 mls/hr IVPB ONCE ONE Rx#:[id number] Potassium Chloride 10 meq 400 In Water For Injection 1 100ml.bag @ 100 mls/hr IVPB Q1HR [facility] Rx#: [id number] Sodium Chloride 0.9% 1, 110 880 000 ml @ 110 mls/hr IV . Q9H6M [facility] Rx#:[id number] Sodium Chloride 0.9% 1, 1000 2000 000 ml @ 999 mls/hr IV . Q1H1M ONE Rx#:[id number] Oral 150 Blood Product 0 1433 810 Ffp 24 Pher Acda Cnt1 221 Unit [id number] Ffp 24 Pher Acda Cnt1 220 Unit [id number] Platelet Pheresis Pas 369 Psoralen Unit [id number] Rc As-1 Unit 0 310 [id number] Rc Pheresis As-3 Unit 0 [id number] Rc Pheresis As-3 Unit 283 [id number] Rc Pheresis As-3 Unit 276 [id number] Rc Pheresis As-3 Unit 282 [id number] Rc Pheresis As-3 Unit 282 [id number] Output: Urine 800 525 210 Stool 500 Emesis 300 100 Other: Voiding Method Indwelling Catheter # Voids 0 # Bowel Movements 2 1 Weight 83.5 kg GENERAL EXAM: Alert, 89-year-old white female, generalized pallor, frequent large maroon stools, currently on 2 L of oxygen by nasal cannula HEAD: Normocephalic and atraumatic EYES: Normal reaction of pupils, equal size. NOSE: Clear with pink turbinates. THROAT: No erythema or exudates. NECK: No masses, no JVD. CHEST: No chest wall deformity. LUNGS: Equal air entry with no crackles, wheeze, rhonchi or dullness. On 2 L/min nasal cannula. No conversational dyspnea or accessory muscle use.. CVS: S1 and S2 normal with soft grade 1 systolic murmur murmur, irregular rhythm. No extra heart sounds, the patient remains tachycardic ABDOMEN: Abdomen flat and soft, hyperactive bowel sounds, no hepatosplenomegaly, no guarding or rigidity. SPINE: No scoliosis or deformity SKIN: No rashes CENTRAL NERVOUS SYSTEM: No focal deficits, tone is normal in all 4 extremities. EXTREMITIES: There is no peripheral edema, clubbing, or cyanosis. Peripheral pulses are intact. Results - Laboratory Findings CBC and BMP: 08/05/24 08:15 08/05/24 04:43 PT/INR, D-dimer PT 12.8 sec (10.0-12.5) H 08/05/24 03:27 INR 1.2 (<1.2) H 08/05/24 03:27 Abnormal lab findings: Abnormal Labs 08/01/24 08/01/24 08/02/24 16:43 16:43 07:15 WBC RBC 3.78 L 3.38 L Hgb 10.8 L 9.7 L Hct 31.0 L MCHC RDW 17.0 H 16.8 H Neutrophils # Lymphocytes # 0.9 L PT INR APTT Sodium Chloride 108 H Carbon Dioxide BUN 18 H Glucose 102 H POC Glucose (mg/dL) Calcium AST 59 H ALT 53 H Total Protein 6.0 L Albumin Crossmatch 08/02/24 08/03/24 08/03/24 07:15 08:37 08:37 WBC RBC 3.43 L Hgb 9.6 L Hct 31.5 L MCHC 30.5 L RDW 17.0 H Neutrophils # Lymphocytes # PT INR APTT Sodium Chloride Carbon Dioxide 31 H BUN 37 H Glucose 126 H 116 H POC Glucose (mg/dL) Calcium AST 45 H ALT 43 H Total Protein 5.5 L Albumin 3.3 L Crossmatch 08/04/24 08/04/24 08/04/24 06:11 06:11 20:35 WBC RBC 3.05 L Hgb 8.8 L Hct 27.9 L MCHC RDW 17.1 H Neutrophils # Lymphocytes # PT INR APTT Sodium 135 L Chloride Carbon Dioxide 34 H BUN 50 H Glucose POC Glucose (mg/dL) 211 H Calcium AST ALT Total Protein Albumin Crossmatch 08/04/24 08/04/24 08/04/24 21:00 21:09 21:09 WBC RBC 2.48 L Hgb 7.3 L D Hct 22.8 L MCHC RDW 17.5 H Neutrophils # Lymphocytes # PT 13.0 H INR 1.2 H APTT Sodium Chloride Carbon Dioxide BUN Glucose POC Glucose (mg/dL) Calcium AST ALT Total Protein Albumin Crossmatch See Detail 08/05/24 08/05/24 08/05/24 00:39 00:39 03:27 WBC 12.8 H RBC 2.64 L Hgb 8.2 L Hct 24.4 L MCHC RDW 16.3 H Neutrophils # 10.5 H Lymphocytes # PT 12.8 H INR 1.2 H APTT 20.1 L Sodium Chloride Carbon Dioxide BUN Glucose POC Glucose (mg/dL) Calcium 7.1 L AST ALT Total Protein Albumin Crossmatch 08/05/24 08/05/24 04:43 08:15 WBC 19.1 H RBC 3.21 L Hgb 10.2 L Hct 30.1 L MCHC RDW Neutrophils # 12.3 H Lymphocytes # 5.5 H PT INR APTT Sodium Chloride 109 H Carbon Dioxide BUN 42 H Glucose 193 H POC Glucose (mg/dL) Calcium 6.5 L AST ALT Total Protein Albumin Crossmatch Assessment and Plan Plan: Acute upper GI bleed, with hemodynamic instability, A-fib RVR and significant drop in hemoglobin. This is an upper GI bleed. EGD was done this morning and the patient was found to have an ulcer in the hiatal hernia. The patient was injected with epinephrine. Awaiting full surgical report by general surgery. The patient has been transfused with a total of 5 units of packed RBC thus far. The patient had reversal of Eliquis by [facility]. The patient is to receive an additional 2 units of fresh frozen plasma and 1 unit of cryoprecipitate. Hemoglobin is being monitored. Most recent hemoglobin is at 10.2. Acute blood loss anemia secondary to massive upper GI bleeding. Hypotension/hypovolemia, secondary to above, currently hemodynamically stable. Not requiring pressors Atrial fibrillation with rapid ventricular response, with better rate control, patient previously bolused with IV amiodarone Acute diastolic congestive heart failure Acute hypoxemic respiratory failure, currently on 2 L/min nasal cannula History of severe aortic stenosis status post TAVR at outside facility June,; echocardiogram done this admission estimates a left ventricular ejection fraction of 55 to 60%, bioprosthetic aortic valve with mean gradient of 16 mmHg and mild perivalvular regurgitation, mild to moderate MR, moderate pulmonary hypertension, and severe tricuspid regurgitation. History of hypertension History of breast cancer with previous right lumpectomy Plan: Hold anticoagulation Renny was given 2 units of fresh frozen plasma and 1 unit of cryoprecipitate Received a total of 5 units of packed RBC Keep the patient n.p.o. IV Protonix EGD was performed and epinephrine was injected into the gastric ulcer Continue IV fluids Continue serial H&H rechecks; General Surgery is on the case Patient's condition currently critical Will continue to follow and make further recommendations based on her progress. Evaluation was done in 40 minutes. Time with Patient: Greater than 30
--- NOTE | 2024-08-05 13:03 | P.PN ---
Subjective Progress Note Date: 08/05/24 89-year-old female with past medical history significant for atrial fibrillation maintained on Eliquis, aortic valve replacement (June 2023), and hypertension presents to the emergency department today for difficulty breathing. She states that about 3 weeks ago she noticed an increase in bilateral lower extremity swelling and then over the last week she has had increasing shortness of breath to the point where she has had lightheadedness with walking. She does deny dyspnea at rest. She also reports a 13 pound weight gain over the last 2-1/2 weeks as well as a nonproductive cough over the last week. Additionally over the last 2 weeks she has had orthopnea. Of note, she was recently diagnosed with atrial fibrillation (06/27/2024) and started Eliquis about 3 weeks ago. She reports palpitations with exertion over the last 3 weeks. She denies fever/chills, nausea/vomiting, chest pain. Furthermore, she denied PND. 08/02/24 - Patient seen and examined at bedside. No acute events overnight. Claims that breathing is slightly improved. 08/03/24 - Patient seen and examined at bedside. No acute events overnight. Claims that breathing is slightly improved. 08/04/24 - Patient seen and examined at bedside this morning. She had an echocardiogram completed this morning showed ejection fraction 55 to 60%. Plan is for patient to be discharged tomorrow following recheck of her proBNP per cardiology's request. She has no acute complaints at this time. 08/05/24 - Patient seen and examined at bedside this morning, now in ICU room 257. Overnight and a team was called as the patient was hypotensive and tachycardic with heart rate in the 150s, and she was noted to have multiple episodes of bright red hematemesis. At that time her most recent CBC showed WBCs 9.7, hemoglobin 7.3, platelets 363, PT 13, INR 1.2, previous APTT 22. Most recent CMP showed sodium 135, potassium 3.5, chloride 98, serum bicarb 34, BUN 50, creatinine 0.69, glucose 91. Following transfer to the ICU her hematemesis had stopped however she had been having large maroon stools with clots noted. She received 5 PRBC transfusions overnight and 1 unit cryoprecipitate, general surgery was consulted for an acute GI bleed and they performed EGD which showed Justin lesions of the stomach as well as a large polyp, both of which were injected with epinephrine. She will receive an additional 2 units of PRBCs, 2 units of FFP, and 1 unit of platelets. When seen at bedside this morning, she states that she is feeling pretty well on the whole REVIEW OF SYSTEMS: Pertinent positives and negatives noted in HPI. Physical Exam: General: nontoxic, no distress, appears at stated age Derm: warm, dry, intact Head: atraumatic, normocephalic, symmetric Eyes: EOMI, anicteric sclera Mouth: no lip lesion, mucus membranes moist Cardiovascular: S1 S2 reg, no murmur, rubs, or gallops Lungs: Bibasilar rales, no accessory muscle use Abdominal: soft, non-tender to palpataion, no appreciable organomegaly Extremities: no gross muscle atrophy, no contractures Neuro: Alert, Oriented, CNII-XII grossly intact, gait normal Psych: well appearing, appropriate affect Data Received Today: Labs: Imagining: Echocardiogram showed EF 55 to 60% Assessment and plan 89-year-old female with past medical history significant for atrial fibrillation maintained on Eliquis, aortic valve replacement (June 2023), and hypertension presents to the emergency department today for difficulty breathing. #Acute GI bleed, previously on Eliquis for atrial fibrillation with RVR #Peptic ulcer disease #Acute blood loss anemia, s/p transfusions #Hypocalcemia secondary to blood transfusions -No prior history of GI bleeding -Nighttime on 08/04/2024 patient would have bright red hematemesis and large maroon stools with clots -Hemoglobin noted to be 7.3 at that time; patient received 5 units PRBCs and 1 unit cryoprecipitate; will receive additional 2 units PRBCs, 2 units FFP, 1 unit platelet -Hypocalcemia secondary to citrate preservative and blood transfusion; continue to monitor BMP -General Surgery consulted for acute GI bleed, EGD performed Continue to monitor CBC -Hold Eliquis #Acute CHF exacerbation #Atrial fibrillation with RVR #History of aortic stenosis status post TAVR #Hypertension #Contraction alkalosis, resolved -Cardiology following -Echocardiogram showed EF 55 to 60% - continue on amiodarone drip 0.5 mg/min -Metoprolol decreased to 50 mg twice daily -Chest x-ray pending, further evaluate and then determine whether to administer Lasix -Eliquis 2.5 twice daily -Farxiga 10 mg daily -Rechecked proBNP 1820 -Continue to monitor BMP #Acute normocytic anemia -continue to monitor, no active bleeding -Iron studies showed iron 63, TIBC 402, percent saturation 15.67%, transferrin 287, ferritin 55.9 #Transaminitis, improving -Likely congestive hepatopathy -Continue to monitor DVT ppx: Eliquis on hold Code status: Full code F: None E: Replete as needed N: Clear liquid A: Ambulatory Anticipated discharge place: Home Anticipated discharge time: Pending clinical course Dictation was produced using adicate timeads dictation software. please excuse any grammatical, word or spelling errors. I have seen and evaluated the patient today. Discussed with the resident and agree with the residents finding and plan as documented in the resident's note. Changes highlighted in blue font. Objective - Vital Signs Vital signs: Vital Signs Temp 98.4 F 08/05/24 04:09 Pulse 151 H 08/05/24 07:00 Resp 12 08/05/24 07:00 BP 130/81 08/05/24 07:00 Pulse Ox 97 08/05/24 07:00 FiO2 Intake & Output 08/04/24 08/05/24 08/05/24 18:59 06:59 18:59 Intake Total 690 5523 100 Output Total 150 2225 30 Balance 540 3298 70 Weight 83.5 kg Intake: Intake, IV Titration 4090 100 Amount Calcium Gluconate in NaCl 100 1 gm In Saline 1 100ml. bag @ 100 mls/hr IVPB ONCE ONE Rx#:[id number] Potassium Chloride 10 meq 100 In Water For Injection 1 100ml.bag @ 100 mls/hr IVPB Q1HR [facility] Rx#: [id number] Sodium Chloride 0.9% 1, 990 000 ml @ 110 mls/hr IV . Q9H6M [facility] Rx#:[id number] Sodium Chloride 0.9% 1, 3000 000 ml @ 999 mls/hr IV . Q1H1M [facility] Rx#:[id number] Oral 690 Blood Product 1433 Rc As-1 Unit 310 [id number] Rc Pheresis As-3 Unit 283 [id number] Rc Pheresis As-3 Unit 276 [id number] Rc Pheresis As-3 Unit 282 [id number] Rc Pheresis As-3 Unit 282 [id number] Output: Urine 150 1325 30 Stool 500 Emesis 400 Other: Voiding Method Toilet Indwelling Catheter External Catheter # Voids 1 0 # Bowel Movements 0 2 - Labs CBC & Chem 7: 08/05/24 08:15 08/05/24 04:43 Labs: Abnormal Lab Results - Last 24 Hours (Table) 08/04/24 08/04/24 08/04/24 Range/Units 06:11 20:35 21:00 WBC (3.8-10.6) k/uL RBC (3.80-5.40) m/uL Hgb (11.4-16.0) gm/dL Hct (34.0-46.0) % RDW (11.5-15.5) % Neutrophils # (1.3-7.7) k/uL PT (10.0-12.5) sec INR (<1.2) APTT (22.0-30.0) sec Sodium 135 L (137-145) mmol/L Chloride (98-107) mmol/L Carbon Dioxide 34 H (22-30) mmol/L BUN 50 H (7-17) mg/dL Glucose (74-99) mg/dL POC Glucose (mg/dL) 211 H (70-110) mg/dL Calcium (8.4-10.2) mg/dL Crossmatch See Detail 08/04/24 08/04/24 08/05/24 Range/Units 21:09 21:09 00:39 WBC 12.8 H (3.8-10.6) k/uL RBC 2.48 L 2.64 L (3.80-5.40) m/uL Hgb 7.3 L D 8.2 L (11.4-16.0) gm/dL Hct 22.8 L 24.4 L (34.0-46.0) % RDW 17.5 H 16.3 H (11.5-15.5) % Neutrophils # 10.5 H (1.3-7.7) k/uL PT 13.0 H (10.0-12.5) sec INR 1.2 H (<1.2) APTT (22.0-30.0) sec Sodium (137-145) mmol/L Chloride (98-107) mmol/L Carbon Dioxide (22-30) mmol/L BUN (7-17) mg/dL Glucose (74-99) mg/dL POC Glucose (mg/dL) (70-110) mg/dL Calcium (8.4-10.2) mg/dL Crossmatch 08/05/24 08/05/24 08/05/24 Range/Units 00:39 03:27 04:43 WBC (3.8-10.6) k/uL RBC (3.80-5.40) m/uL Hgb (11.4-16.0) gm/dL Hct (34.0-46.0) % RDW (11.5-15.5) % Neutrophils # (1.3-7.7) k/uL PT 12.8 H (10.0-12.5) sec INR 1.2 H (<1.2) APTT 20.1 L (22.0-30.0) sec Sodium (137-145) mmol/L Chloride 109 H (98-107) mmol/L Carbon Dioxide (22-30) mmol/L BUN 42 H (7-17) mg/dL Glucose 193 H (74-99) mg/dL POC Glucose (mg/dL) (70-110) mg/dL Calcium 7.1 L 6.5 L (8.4-10.2) mg/dL Crossmatch
[2024-08-05 18:58] LABS: Basophils # (A) 0.1 k/uL (0-0.2); Basophils % (A) 0 %; Eosinophils % (A) 0 %; HCT 30.1 % (34.0-46.0); Hypochromasia Slight; Lymphocytes # (A) 2.6 k/uL (1.0-4.8); Lymphocytes % (A) 17 %; MCH 31.4 pg (25.0-35.0); MCHC 33.2 g/dL (31.0-37.0); MCV 94.6 fL (80.0-100.0); Mean Platelet Volume 8.8; Monocytes # (A) 0.9 k/uL (0-1.0); Monocytes % (A) 6 %; Neutrophils # (A) 11.2 k/uL (1.3-7.7); Neutrophils % (A) 75 %; Platelet Count 149 k/uL (150-450); RBC 3.18 m/uL (3.80-5.40); RDW 15.7 % (11.5-15.5); WBC 14.9 k/uL (3.8-10.6)
[2024-08-05 19:09] LABS: Calcium 7.8 mg/dL (8.4-10.2); Magnesium 1.7 mg/dL (1.6-2.3)
[2024-08-05] MEDS: ONDANSETRON 4 MG/2 ML VIAL IVP PRN (21:20)
--- NOTE | 2024-08-05 21:45 | P.EN ---
At 20:18 a rapid response was called overhead. Per patient nurse patient had an episode of bloody emesis and was found to be pale, hypotensive in the 80s/40s, and tachycardic with heart rate in the 150s. She was not in respiratory distress and lungs were clear to auscultation bilaterally. Her abdomen was nontender to palpation and bowel sounds were present. She was subsequently t ransferred to the ICU, Eliquis was stopped, patient was made n.p.o., and she was given a 1 L bolus of 0.9% saline, 80 mg IV Protonix, and 0.9% saline at 110 cc/h. Repeat CBC was ordered and a consult to general surgery was placed.
[2024-08-06 00:18] LABS: Anisocytosis Slight; Basophils # (A) 0.1 k/uL (0-0.2); Basophils % (A) 0 %; Eosinophils # (A) 0.1 k/uL (0-0.7); Eosinophils % (A) 1 %; HCT 25.5 % (34.0-46.0); HGB 8.9 gm/dL (11.4-16.0); Hypochromasia Slight; Lymphocytes # (A) 2.5 k/uL (1.0-4.8); Lymphocytes % (A) 16 %; MCH 32.3 pg (25.0-35.0); MCHC 34.9 g/dL (31.0-37.0); MCV 92.5 fL (80.0-100.0); Mean Platelet Volume 8.3; Monocytes % (A) 7 %; Neutrophils # (A) 11.4 k/uL (1.3-7.7); Neutrophils % (A) 75 %; Platelet Count 152 k/uL (150-450); Poikilocytosis Slight; RBC 2.76 m/uL (3.80-5.40); RDW 16.1 % (11.5-15.5); WBC 15.2 k/uL (3.8-10.6)
[2024-08-06] MEDS: AMIODARONE 450 MG in DEXTROSE 5% IN WATER 250 ML IV SCH (02:21)
--- NOTE | 2024-08-06 06:46 | P.PN ---
Subjective Patient seen and evaluated at bedside. bowel movements are starting to slow, still dark/tarry, denies abdominal pain, nausea, vomiting, fevers, or chills. Objective - Vital Signs Vital signs: Vital Signs Temp 99.7 F H 08/06/24 04:00 Pulse 108 H 08/06/24 05:00 Resp 15 08/06/24 05:00 BP 89/48 08/06/24 05:00 Pulse Ox 92 L 08/06/24 04:30 FiO2 Intake & Output 08/05/24 08/05/24 08/06/24 06:59 18:59 06:59 Intake Total 5523 3336 610 Output Total 2225 740 520 Balance 3298 2596 90 Weight 83.5 kg 83.5 kg 98.4 kg Intake: IV 710 110 0.9S 70 110 Sodium Chloride 0.9% 1, 440 000 ml @ 110 mls/hr IV . Q9H6M [facility] Rx#:[id number] Intake, IV Titration 4090 650 Amount Amiodarone 450 mg In 250 Dextrose 5% in Water 250 ml @ 0.5 MG/MIN 16.667 mls/hr IV .Q15H [facility] Rx#: [id number] Calcium Gluconate in NaCl 100 1 gm In Saline 1 100ml. bag @ 100 mls/hr IVPB ONCE ONE Rx#:[id number] Potassium Chloride 10 meq 400 In Water For Injection 1 100ml.bag @ 100 mls/hr IVPB Q1HR [facility] Rx#: [id number] Sodium Chloride 0.9% 1, 990 000 ml @ 110 mls/hr IV . Q9H6M [facility] Rx#:[id number] Sodium Chloride 0.9% 1, 3000 000 ml @ 999 mls/hr IV . Q1H1M [facility] Rx#:[id number] Oral 600 500 Blood Product 1433 1376 Ffp 24 Pher Acda Cnt1 221 Unit [id number] Ffp 24 Pher Acda Cnt1 220 Unit [id number] Platelet Pheresis Pas 369 Psoralen Unit [id number] Rc As-1 Unit 310 [id number] Rc Pheresis As-3 Unit 293 [id number] Rc Pheresis As-3 Unit 273 [id number] Rc Pheresis As-3 Unit 283 [id number] Rc Pheresis As-3 Unit 276 [id number] Rc Pheresis As-3 Unit 282 [id number] Rc Pheresis As-3 Unit 282 [id number] Output: Urine 1325 740 520 Stool 500 Emesis 400 Other: Voiding Method Indwelling Catheter Indwelling Catheter Indwelling Catheter # Voids 0 # Bowel Movements 2 1 1 - Exam gen: nad, pallor has improved cv: tachycardic abd: soft, non distended, no guarding or rebound tenderness pul:non labored - Labs CBC & Chem 7: 08/05/24 23:58 08/05/24 18:35 Labs: Abnormal Lab Results - Last 24 Hours (Table) 08/04/24 08/05/24 08/05/24 Range/Units 21:00 08:15 18:35 WBC 19.1 H 14.9 H (3.8-10.6) k/uL RBC 3.21 L 3.18 L (3.80-5.40) m/uL Hgb 10.2 L 10.0 L (11.4-16.0) gm/dL Hct 30.1 L 30.1 L (34.0-46.0) % RDW 15.7 H (11.5-15.5) % Plt Count 149 L (150-450) k/uL Neutrophils # 12.3 H 11.2 H (1.3-7.7) k/uL Lymphocytes # 5.5 H (1.0-4.8) k/uL Calcium (8.4-10.2) mg/dL Crossmatch See Detail 08/05/24 08/05/24 Range/Units 18:35 23:58 WBC 15.2 H (3.8-10.6) k/uL RBC 2.76 L (3.80-5.40) m/uL Hgb 8.9 L (11.4-16.0) gm/dL Hct 25.5 L (34.0-46.0) % RDW 16.1 H (11.5-15.5) % Plt Count (150-450) k/uL Neutrophils # 11.4 H (1.3-7.7) k/uL Lymphocytes # (1.0-4.8) k/uL Calcium 7.8 L (8.4-10.2) mg/dL Crossmatch Assessment and Plan Assessment: 89 yo female w/ UGI bleed -bowel movements starting to slow down -hgb 8.7, no transfusion necessary -afib, continue lopressor -no further intervention Time with Patient: Less than 30
[2024-08-06 06:54] LABS: Anisocytosis Slight; HCT 24.4 % (34.0-46.0); HGB 8.2 gm/dL (11.4-16.0); Hypochromasia Slight; MCH 31.7 pg (25.0-35.0); MCHC 33.6 g/dL (31.0-37.0); MCV 94.3 fL (80.0-100.0); Mean Platelet Volume 8.6; Platelet Count 161 k/uL (150-450); Poikilocytosis Slight; RBC 2.59 m/uL (3.80-5.40); RDW 16.3 % (11.5-15.5); WBC 17.7 k/uL (3.8-10.6)
[2024-08-06 07:39] LABS: African American GFR (CKD) 80 (>60 ml/min/1.73 sqM); Anion Gap 5 mmol/L; Blood Urea Nitrogen 41 mg/dL (7-17); Calcium 7.4 mg/dL (8.4-10.2); Carbon Dioxide 24 mmol/L (22-30); Chloride 105 mmol/L (98-107); Glucose 131 mg/dL (74-99); Magnesium 1.8 mg/dL (1.6-2.3); Non-African American GFR(CKD) 70 (>60 ml/min/1.73 sqM); Potassium 4.2 mmol/L (3.5-5.1); Sodium 134 mmol/L (137-145)
--- NOTE | 2024-08-06 08:15 | XR ---
EXAMINATION TYPE: XR chest 1V portable DATE OF EXAM: 08/06/2024 5:27 AM COMPARISON: Chest radiographs from 08/01/2024 TECHNIQUE: XR chest 1V portable Portable AP radiograph of the chest. CLINICAL INDICATION:Female, 89 years old with history of chf; FINDINGS: Lungs/Pleura: There is no evidence of pleural effusion, focal consolidation, or pneumothorax. Chroni c senescent parenchymal change. Pulmonary vascularity: Unremarkable. Heart/mediastinum: Cardiomediastinal silhouette is enlarged and stable. Atherosclerotic calcificatio ns are seen in the aorta. Musculoskeletal: No acute osseous pathology. IMPRESSION: 1. No acute cardiopulmonary disease/process. 2. Cardiomegaly. [facility], , 08/06/2024 8:12 AM
--- NOTE | 2024-08-06 08:28 | P.PN ---
Subjective Progress Note Date: 08/06/24 PROGRESS NOTE The patient is an 89-year-old female with a prior history of severe aortic stenosis, status post TAVR, performed at [facility], history of atrial fibrillation presented with symptoms of progressive dyspnea, peripheral edema and weight gain consistent with heart failure and preserved systolic function. She had an echocardiogram that showed a preserved systolic function with normal functioning of her TAVR and severe tricuspid regurgitation. Yesterday she started having evidence of GI bleeding with a drop in her hemoglobin, hypotension and tachycardia. She was transferred to the ICU and received 5 units of blood. She continues to have bleeding and she is scheduled to undergo an upper endoscopy today. She continues to be in atrial fibrillation with episodes of rapid ventricular response. She is on no vasopressor at this time. She feels tired and fatigued. Her breathing is stable. She denies any chest discomfort. She has no prior history of GI bleeding according to her. August 06: The patient continues to have GI bleeding although improved. She denies any shelia st discomfort. She feels tired. She continues to be in atrial fibrillation with rapid ventricle response. Her breathing is unchanged. She has no further vomiting. Her blood pressure has been stable and her urinary output has been stable. She continues to be on IV amiodarone. Chest x-ray shows no acute infiltrate. Her last hemoglobin is 8.2. Medications: Amiodarone IV, Farxiga 10 mg daily, furosemide 40 mg daily, metoprolol tartrate 50 mg twice a day, Protonix, her anticoagulation is on hold. PHYSICAL EXAMINATION: Blood pressure 119/60 heart rate 120-130 LUNGS: [Clear to auscultation] HEART: [Irregular rate and rhythm, S1, S2. No S3. Systolic ejection murmur] ABDOMEN: [Soft, nontender, no organomegaly] EXTREMETIES: [No edema] LAB: Hemoglobin 8.2. BUN 41, creatinine 0.77, potassium 4.2. IMPRESSION: 1. Acute GI bleeding the patient who was anticoagulated for atrial fibrillatio n. Appears to be stabilizing 2. Status post TAVR 3. Permanent atrial fibrillation with rapid ventricular response with the GI bleeding 4. CHF with preserved systolic function, improved PLAN: 1. Transfuse as needed 2. Continue IV amiodarone for now 3. Increase beta-iggy 4. Patient will be evaluated for left atrial appendage closure device down the road 5. Depending on her progress further recommendations will be made Objective - Vital Signs Vital signs: Vital Signs Temp 97.4 F L 08/06/24 08:00 Pulse 141 H 08/06/24 08:00 Resp 16 08/06/24 08:00 BP 119/66 08/06/24 08:00 Pulse Ox 100 08/06/24 08:00 FiO2 Intake & Output 08/05/24 08/06/24 08/06/24 18:59 06:59 18:59 Intake Total 3336 620 520 Output Total 740 565 95 Balance 2596 55 425 Weight 83.5 kg 98.4 kg Intake: IV 710 120 20 0.9S 70 120 20 Sodium Chloride 0.9% 1, 440 000 ml @ 110 mls/hr IV . Q9H6M [facility] Rx#:[id number] Intake, IV Titration 650 Amount Amiodarone 450 mg In 250 Dextrose 5% in Water 250 ml @ 0.5 MG/MIN 16.667 mls/hr IV .Q15H [facility] Rx#: [id number] Potassium Chloride 10 meq 400 In Water For Injection 1 100ml.bag @ 100 mls/hr IVPB Q1HR [facility] Rx#: [id number] Oral 600 500 500 Blood Product 1376 Ffp 24 Pher Acda Cnt1 221 Unit [id number] Ffp 24 Pher Acda Cnt1 220 Unit [id number] Platelet Pheresis Pas 369 Psoralen Unit [id number] Rc Pheresis As-3 Unit 293 [id number] Rc Pheresis As-3 Unit 273 [id number] Output: Urine 740 565 95 Other: Voiding Method Indwelling Catheter Indwelling Catheter # Bowel Movements 1 1 - Labs CBC & Chem 7: 08/06/24 06:17 08/06/24 06:17 Labs: Abnormal Lab Results - Last 24 Hours (Table) 08/04/24 08/05/24 08/05/24 Range/Units 21:00 08:15 18:35 WBC 19.1 H 14.9 H (3.8-10.6) k/uL RBC 3.21 L 3.18 L (3.80-5.40) m/uL Hgb 10.2 L 10.0 L (11.4-16.0) gm/dL Hct 30.1 L 30.1 L (34.0-46.0) % RDW 15.7 H (11.5-15.5) % Plt Count 149 L (150-450) k/uL Neutrophils # 12.3 H 11.2 H (1.3-7.7) k/uL Lymphocytes # 5.5 H (1.0-4.8) k/uL Sodium (137-145) mmol/L BUN (7-17) mg/dL Glucose (74-99) mg/dL Calcium (8.4-10.2) mg/dL Crossmatch See Detail 08/05/24 08/05/24 08/06/24 Range/Units 18:35 23:58 06:17 WBC 15.2 H (3.8-10.6) k/uL RBC 2.76 L (3.80-5.40) m/uL Hgb 8.9 L (11.4-16.0) gm/dL Hct 25.5 L (34.0-46.0) % RDW 16.1 H (11.5-15.5) % Plt Count (150-450) k/uL Neutrophils # 11.4 H (1.3-7.7) k/uL Lymphocytes # (1.0-4.8) k/uL Sodium 134 L (137-145) mmol/L BUN 41 H (7-17) mg/dL Glucose 131 H (74-99) mg/dL Calcium 7.8 L 7.4 L (8.4-10.2) mg/dL Crossmatch 08/06/24 Range/Units 06:17 WBC 17.7 H (3.8-10.6) k/uL RBC 2.59 L (3.80-5.40) m/uL Hgb 8.2 L (11.4-16.0) gm/dL Hct 24.4 L (34.0-46.0) % RDW 16.3 H (11.5-15.5) % Plt Count (150-450) k/uL Neutrophils # (1.3-7.7) k/uL Lymphocytes # (1.0-4.8) k/uL Sodium (137-145) mmol/L BUN (7-17) mg/dL Glucose (74-99) mg/dL Calcium (8.4-10.2) mg/dL Crossmatch
[2024-08-06] MEDS: METOPROLOL TARTRATE 50 MG TAB PO SCH (09:50)
[2024-08-06] MEDS: AMIODARONE 200 MG TAB PO SCH (09:58)
[2024-08-06 11:38] LABS: Anisocytosis Slight; Basophils % (A) 0 %; Eosinophils % (A) 0 %; HGB 7.8 gm/dL (11.4-16.0); Hypochromasia Slight; Lymphocytes # (A) 2.5 k/uL (1.0-4.8); Lymphocytes % (A) 14 %; MCHC 34.1 g/dL (31.0-37.0); MCV 93.8 fL (80.0-100.0); Mean Platelet Volume 8.7; Monocytes % (A) 6 %; Neutrophils # (A) 13.5 k/uL (1.3-7.7); Neutrophils % (A) 78 %; Platelet Count 176 k/uL (150-450); Poikilocytosis Slight; RBC 2.45 m/uL (3.80-5.40); RDW 17.6 % (11.5-15.5); WBC 17.2 k/uL (3.8-10.6)
--- NOTE | 2024-08-06 11:49 | P.PN ---
Subjective Progress Note Date: 08/06/24 89-year-old female with past medical history significant for atrial fibrillation maintained on Eliquis, aortic valve replacement (June 2023), and hypertension presents to the emergency department today for difficulty breathing. She states that about 3 weeks ago she noticed an increase in bilateral lower extremity swelling and then over the last week she has had increasing shortness of breath to the point where she has had lightheadedness with walking. She does deny dyspnea at rest. She also reports a 13 pound weight gain over the last 2-1/2 weeks as well as a nonproductive cough over the last week. Additionally over the last 2 weeks she has had orthopnea. Of note, she was recently diagnosed with atrial fibrillation (06/27/2024) and started Eliquis about 3 weeks ago. She reports palpitations with exertion over the last 3 weeks. She denies fever/chills, nausea/vomiting, chest pain. Furthermore, she denied PND. 08/02/24 - Patient seen and examined at bedside. No acute events overnight. Claims that breathing is slightly improved. 08/03/24 - Patient seen and examined at bedside. No acute events overnight. Claims that breathing is slightly improved. 08/04/24 - Patient seen and examined at bedside this morning. She had an echocardiogram completed this morning showed ejection fraction 55 to 60%. Plan is for patient to be discharged tomorrow following recheck of her proBNP per cardiology's request. She has no acute complaints at this time. 08/05/24 - Patient seen and examined at bedside this morning, now in ICU room 257. Overnight and a team was called as the patient was hypotensive and tachycardic with heart rate in the 150s, and she was noted to have multiple episodes of bright red hematemesis. At that time her most recent CBC showed WBCs 9.7, hemoglobin 7.3, platelets 363, PT 13, INR 1.2, previous APTT 22. Most recent CMP showed sodium 135, potassium 3.5, chloride 98, serum bicarb 34, BUN 50, creatinine 0.69, glucose 91. Following transfer to the ICU her hematemesis had stopped however she had been having large maroon stools with clots noted. She received 5 PRBC transfusions overnight and 1 unit cryoprecipitate, general surgery was consulted for an acute GI bleed and they performed EGD which showed Justin lesions of the stomach as well as a large polyp, both of which were injected with epinephrine. She will receive an additional 2 units of PRBCs, 2 units of FFP, and 1 unit of platelets. When seen at bedside this morning, she states that she is feeling pretty well on the whole. 08/06/24 - Patient seen and examined at bedside this morning,remaining in the ICU room 257. Patient's bowel movements are slowing, remaining dark and tarry. She continues to deny any abdominal pain, nausea, vomiting, fevers or chills. She notes having some increased welling of her right upper extremity, with some associated tenderness. REVIEW OF SYSTEMS: Pertinent positives and negatives noted in HPI. Physical Exam: General: nontoxic, no distress, appears at stated age Derm: warm, dry, intact Head: atraumatic, normocephalic, symmetric Eyes: EOMI, anicteric sclera Mouth: no lip lesion, mucus membranes moist Cardiovascular: S1 S2 reg, no murmur, rubs, or gallops Lungs: Bibasilar rales, no accessory muscle use Abdominal: soft, non-tender to palpataion, no appreciable organomegaly Extremities: no gross muscle atrophy, no contractures Neuro: Alert, Oriented, CNII-XII grossly intact, gait normal Psych: well appearing, appropriate affect Data Received Today: Labs: WBC 17.2, hemoglobin 7.8, hematocrit 23.0, platelet 176; sodium 134, potassium 4.2, bicarb 24, BUN 41, creatinine 0.77, calcium 7.4, magnesium 1.8 Imagining: Chest x-ray today interpreted independently Assessment and plan 89-year-old female with past medical history significant for atrial fibrillation maintained on Eliquis, aortic valve replacement (June 2023), and hypertension presents to the emergency department today for difficulty breathing. #Acute GI bleed, previously on Eliquis for atrial fibrillation with RVR #Peptic ulcer disease #Acute blood loss anemia, s/p transfusions #Hypocalcemia secondary to blood transfusions -No prior history of GI bleeding -Bowel movements, continue to be dark and tarry -Hemoglobin noted to be 7.8 this morning CBC; continue to monitor, hemoglobin <7 transfuse -Hypocalcemia secondary to citrate preservative and blood transfusion; continue to monitor BMP -General Surgery consulted for acute GI bleed, EGD performed -Continue to monitor CBC every 4 hours -Hold Eliquis #Acute CHF exacerbation #Atrial fibrillation with RVR #History of aortic stenosis status post TAVR #Hypertension #Contraction alkalosis, resolved -Cardiology following -Echocardiogram showed EF 55 to 60% -Switched to oral amiodarone 400 mg twice daily -Metoprolol decreased to 50 mg twice daily -Chest x-ray pending, further evaluate and then determine whether to administer Lasix -Eliquis 2.5 twice daily -Farxiga 10 mg daily -Rechecked proBNP 1820 -Continue to monitor BMP #Right upper extremity swelling/discomfort -Venous Doppler ultrasound right upper extremity ordered, currently pending #Transaminitis, improving -Likely congestive hepatopathy -Continue to monitor DVT ppx: Eliquis on hold GI PPx: Protonix 40 mg twice daily Code status: Full code F: None E: Replete as needed N: Clear liquid A: Ambulatory Anticipated discharge place: Home Anticipated discharge time: Tomorrow Dictation was produced using [employer] dictation software. please excuse any grammatical, word or spelling errors. I have seen and evaluated the patient today. Discussed with the resident and agree with the residents finding and plan as documented in the resident's note. Changes highlighted in blue font. Objective - Vital Signs Vital signs: Vital Signs Temp 99.7 F H 08/06/24 04:00 Pulse 121 H 08/06/24 07:00 Resp 19 08/06/24 07:00 BP 118/73 08/06/24 07:00 Pulse Ox 90 L 08/06/24 07:00 FiO2 Intake & Output 08/05/24 08/06/24 08/06/24 18:59 06:59 18:59 Intake Total 3336 620 510 Output Total 740 565 50 Balance 2596 55 460 Weight 83.5 kg 98.4 kg Intake: IV 710 120 10 0.9S 70 120 10 Sodium Chloride 0.9% 1, 440 000 ml @ 110 mls/hr IV . Q9H6M [facility] Rx#:[id number] Intake, IV Titration 650 Amount Amiodarone 450 mg In 250 Dextrose 5% in Water 250 ml @ 0.5 MG/MIN 16.667 mls/hr IV .Q15H [facility] Rx#: [id number] Potassium Chloride 10 meq 400 In Water For Injection 1 100ml.bag @ 100 mls/hr IVPB Q1HR [facility] Rx#: [id number] Oral 600 500 500 Blood Product 1376 Ffp 24 Pher Acda Cnt1 221 Unit [id number] Ffp 24 Pher Acda Cnt1 220 Unit [id number] Platelet Pheresis Pas 369 Psoralen Unit [id number] Rc Pheresis As-3 Unit 293 [id number] Rc Pheresis As-3 Unit 273 [id number] Output: Urine 740 565 50 Other: Voiding Method Indwelling Catheter Indwelling Catheter # Bowel Movements 1 1 - Labs CBC & Chem 7: 08/06/24 14:30 08/06/24 06:17 Labs: Abnormal Lab Results - Last 24 Hours (Table) 08/04/24 08/05/24 08/05/24 Range/Units 21:00 08:15 18:35 WBC 19.1 H 14.9 H (3.8-10.6) k/uL RBC 3.21 L 3.18 L (3.80-5.40) m/uL Hgb 10.2 L 10.0 L (11.4-16.0) gm/dL Hct 30.1 L 30.1 L (34.0-46.0) % RDW 15.7 H (11.5-15.5) % Plt Count 149 L (150-450) k/uL Neutrophils # 12.3 H 11.2 H (1.3-7.7) k/uL Lymphocytes # 5.5 H (1.0-4.8) k/uL Sodium (137-145) mmol/L BUN (7-17) mg/dL Glucose (74-99) mg/dL Calcium (8.4-10.2) mg/dL Crossmatch See Detail 08/05/24 08/05/24 08/06/24 Range/Units 18:35 23:58 06:17 WBC 15.2 H (3.8-10.6) k/uL RBC 2.76 L (3.80-5.40) m/uL Hgb 8.9 L (11.4-16.0) gm/dL Hct 25.5 L (34.0-46.0) % RDW 16.1 H (11.5-15.5) % Plt Count (150-450) k/uL Neutrophils # 11.4 H (1.3-7.7) k/uL Lymphocytes # (1.0-4.8) k/uL Sodium 134 L (137-145) mmol/L BUN 41 H (7-17) mg/dL Glucose 131 H (74-99) mg/dL Calcium 7.8 L 7.4 L (8.4-10.2) mg/dL Crossmatch 08/06/24 Range/Units 06:17 WBC 17.7 H (3.8-10.6) k/uL RBC 2.59 L (3.80-5.40) m/uL Hgb 8.2 L (11.4-16.0) gm/dL Hct 24.4 L (34.0-46.0) % RDW 16.3 H (11.5-15.5) % Plt Count (150-450) k/uL Neutrophils # (1.3-7.7) k/uL Lymphocytes # (1.0-4.8) k/uL Sodium (137-145) mmol/L BUN (7-17) mg/dL Glucose (74-99) mg/dL Calcium (8.4-10.2) mg/dL Crossmatch
[2024-08-06] MEDS: ACETAMINOPHEN TAB 325 MG TAB PO PRN (12:29)
--- NOTE | 2024-08-06 13:11 | US ---
EXAMINATION TYPE: US venous doppler duplex UE RT DATE OF EXAM: 08/06/2024 COMPARISON: NONE CLINICAL INDICATION: Female, 89 years old with history of pain/swelling; Pain and swelling. No hx of DVT. TECHNIQUE: Grayscale, color Doppler and spectral Doppler imaging of the upper extremity. SIDE PERFORMED: Right Arm VESSELS IMAGED: IJV Subclavian Vein Axilla Vein Brachial Vein(s) Radial Paired Veins Ulnar Paired Veins Cephalic Vein* Basilic Vein* (*superficial vessels) FINDINGS: Right Arm: Superficial thrombus seen in right cephalic vein from upper arm down through the mid arm and forearm. Vessel does not compress or show color flow. Unable to follow cephalic vein to its or igin. No evidence of DVT. There is color flow with compressibility and normal spectral venous wavefo ezequiel involving the right internal jugular, subclavian, axillary, basilic, brachial, radial, and ulnar veins. Hypoechoic area seen right lateral neck near IJV: 1.8 x 1.5 x 0.8 cm. Favored to represent a prominen t lymph node. IMPRESSION: 1. No ultrasound evidence for deep venous thrombosis of the right upper extremity. 2. Superficial thrombosis of the right cephalic vein. [facility], , 08/06/2024 1:09 PM
[2024-08-06 14:46] LABS: Anisocytosis Slight; Basophils % (A) 0 %; Eosinophils # (A) 0.1 k/uL (0-0.7); Eosinophils % (A) 0 %; HCT 21.2 % (34.0-46.0); HGB 7.2 gm/dL (11.4-16.0); Hypochromasia Slight; Lymphocytes # (A) 1.9 k/uL (1.0-4.8); Lymphocytes % (A) 11 %; MCH 32.2 pg (25.0-35.0); MCHC 33.7 g/dL (31.0-37.0); MCV 95.5 fL (80.0-100.0); Mean Platelet Volume 8.3; Monocytes % (A) 6 %; Neutrophils # (A) 13.6 k/uL (1.3-7.7); Neutrophils % (A) 81 %; Platelet Count 147 k/uL (150-450); Poikilocytosis Slight; RBC 2.23 m/uL (3.80-5.40); RDW 16.9 % (11.5-15.5); WBC 16.7 k/uL (3.8-10.6)
--- NOTE | 2024-08-06 16:07 | P.PN ---
Subjective Progress Note Date: 08/06/24 Patient is an 89-year-old female with past medical history significant for hypertension, severe aortic stenosis with previous TAVR performed June 2023 at [facility], atrial fibrillation anticoagulated on Eliquis. Presented the emergency department back on 08/01/2024 with a chief complaint of shortness of breath. Found to be in atrial fibrillation with rapid ventricular response. Initially, started on Cardizem infusion. Note that she is anticoagulated on Eliquis. Echocardiogram done this admission Left ventricular ejection fraction estimated at 55 to 60%, bioprosthetic aortic valve with mean gradient of 16 mmHg and mild perivalvular regurgitation, mild to moderate MR, moderate pulmonary hypertension, and severe tricuspid regurgitation. Chest x- ray done admission showing cardiomegaly with small bilateral pleural effusions. Patient was admitted to the cardiac stepdown unit. A rapid response was called around 20:18 last night. She was noted to be hypotensive and tachycardic with a heart rate in the 150s. She was having multiple episodes of bright red hematemesis. Most recent CBC: WBC count 9.7, hemoglobin 7.3, platelets 363. PT 13, INR 1.2, previous APTT 22. Most recent available CMP: Sodium 135, potassium 3.5, chloride 98, serum bicarb 34, BUN 50, creatinine 0.69, glucose 91. LFTs not elevated. NT proBNP 1930. Troponin less than 0.012 x 1. Patient currently being evaluated in room 257. Alert and oriented. Generating pale. hematemesis subsided, however, is now having large john stools. Approximately 6 or 7 episodes so far, with clots. Heart rate remains tachycardic around 110 bpm. Blood pressure also hypotensive and is most recently 75/59 mmHg. General surgery was consulted. Patient was transferred to the intensive care unit. 2 units PRBCs were ordered. Patient is going to be given a dose of Kcentra. Patient denies history of GI bleeding. Most recent screening colonoscopy from 2018. Denies NSAID use. Has been taking Eliquis as reported above, and this is obviously on hold. Previously started on amiodarone with IV bolus and continues on amiodarone at 1 mg/min. Two additional liters of normal saline fluid bolus ordered. Overnight, the patient was being monitored closely and the most recent hemoglobin it was measured on this patient from this morning was at 10.2. Noted the patient underwent an EGD today and the patient was found to have a ulcer within the hiatal hernia. Epinephrine injection was done. After arrival back to the intensive care unit, the patient had another melanotic stools. In addition to units of packed RBC was ordered by general surgery. In summary, the patient has received a total of 5 units of packed RBC, she will be given an 2 additional units of fresh frozen plasma and 1 unit of cryoprecipitate. At the same time, the patient remains in atrial fibrillation with RVR. The patient is currently on amiodarone drip. Blood pressure is well-maintained. No significant hypotension at this point in time. She is awake and alert. She is NPO. On 08/06/2024, the patient is being seen in follow-up regarding her ongoing GI bleeding. Noted overnight, the patient had 3 bowel movements most recent of which was around 830 this morning and this was described to be bloody. There has been ongoing steady drop in hemoglobin and the most recent hemoglobin is done to 7.2. The patient is on clear liquid diet. The patient remains on IV Protonix. Receiving 4 mg of IV Protonix twice a day. No nausea. No emesis. No abdominal pain. She has received a total of 7 units of RBC, 1 unit of platel et and 2 units of fresh frozen plasma. The patient remains on amiodarone drip at 0.5 mg/min and the patient remains on metoprolol 50 mg p.o. twice a day. She remains on IV fluids and currently the IV fluids are at KVO. She is awake and alert and communicating. No significant complaints. General surgery remains on the case. Objective - Vital Signs Vital signs: Vital Signs Temp 97.4 F L 08/06/24 08:00 Pulse 112 H 08/06/24 09:00 Resp 12 08/06/24 08:30 BP 113/67 08/06/24 09:00 Pulse Ox 96 08/06/24 09:00 FiO2 Intake & Output 08/05/24 08/06/24 08/06/24 18:59 06:59 18:59 Intake Total 3336 620 530 Output Total 740 565 670 Balance 2596 55 -140 Weight 83.5 kg 98.4 kg Intake: IV 710 120 30 0.9S 70 120 30 Sodium Chloride 0.9% 1, 440 000 ml @ 110 mls/hr IV . Q9H6M [facility] Rx#:[id number] Intake, IV Titration 650 Amount Amiodarone 450 mg In 250 Dextrose 5% in Water 250 ml @ 0.5 MG/MIN 16.667 mls/hr IV .Q15H [facility] Rx#: [id number] Potassium Chloride 10 meq 400 In Water For Injection 1 100ml.bag @ 100 mls/hr IVPB Q1HR [facility] Rx#: [id number] Oral 600 500 500 Blood Product 1376 Ffp 24 Pher Acda Cnt1 221 Unit [id number] Ffp 24 Pher Acda Cnt1 220 Unit [id number] Platelet Pheresis Pas 369 Psoralen Unit [id number] Rc Pheresis As-3 Unit 293 [id number] Rc Pheresis As-3 Unit 273 [id number] Output: Urine 740 565 170 Stool 500 Other: Voiding Method Indwelling Catheter Indwelling Catheter Indwelling Catheter # Bowel Movements 1 1 - Exam GENERAL EXAM: Alert, 89-year-old white female, generalized pallor, frequent large maroon stools, currently on 2 L of oxygen by nasal cannula HEAD: Normocephalic and atraumatic EYES: Normal reaction of pupils, equal size. NOSE: Clear with pink turbinates. THROAT: No erythema or exudates. NECK: No masses, no JVD. CHEST: No chest wall deformity. LUNGS: Equal air entry with no crackles, wheeze, rhonchi or dullness. On 2 L/min nasal cannula. No conversational dyspnea or accessory muscle use.. CVS: S1 and S2 normal with soft grade 1 systolic murmur murmur, irregular rhythm. No extra heart sounds, the patient remains tachycardic ABDOMEN: Abdomen flat and soft, hyperactive bowel sounds, no hepatosplenomegaly, no guarding or rigidity. SPINE: No scoliosis or deformity SKIN: No rashes CENTRAL NERVOUS SYSTEM: No focal deficits, tone is normal in all 4 extremities. EXTREMITIES: There is no peripheral edema, clubbing, or cyanosis. Peripheral pulses are intact. - Labs CBC & Chem 7: 08/06/24 14:30 08/06/24 06:17 Labs: Abnormal Lab Results - Last 24 Hours (Table) 08/04/24 08/05/24 08/05/24 Range/Units 21:00 08:15 18:35 WBC 14.9 H (3.8-10.6) k/uL RBC 3.18 L (3.80-5.40) m/uL Hgb 10.0 L (11.4-16.0) gm/dL Hct 30.1 L (34.0-46.0) % RDW 15.7 H (11.5-15.5) % Plt Count 149 L (150-450) k/uL Neutrophils # 12.3 H 11.2 H (1.3-7.7) k/uL Lymphocytes # 5.5 H (1.0-4.8) k/uL Sodium (137-145) mmol/L BUN (7-17) mg/dL Glucose (74-99) mg/dL Calcium (8.4-10.2) mg/dL Crossmatch See Detail 08/05/24 08/05/24 08/06/24 Range/Units 18:35 23:58 06:17 WBC 15.2 H (3.8-10.6) k/uL RBC 2.76 L (3.80-5.40) m/uL Hgb 8.9 L (11.4-16.0) gm/dL Hct 25.5 L (34.0-46.0) % RDW 16.1 H (11.5-15.5) % Plt Count (150-450) k/uL Neutrophils # 11.4 H (1.3-7.7) k/uL Lymphocytes # (1.0-4.8) k/uL Sodium 134 L (137-145) mmol/L BUN 41 H (7-17) mg/dL Glucose 131 H (74-99) mg/dL Calcium 7.8 L 7.4 L (8.4-10.2) mg/dL Crossmatch 08/06/24 Range/Units 06:17 WBC 17.7 H (3.8-10.6) k/uL RBC 2.59 L (3.80-5.40) m/uL Hgb 8.2 L (11.4-16.0) gm/dL Hct 24.4 L (34.0-46.0) % RDW 16.3 H (11.5-15.5) % Plt Count (150-450) k/uL Neutrophils # (1.3-7.7) k/uL Lymphocytes # (1.0-4.8) k/uL Sodium (137-145) mmol/L BUN (7-17) mg/dL Glucose (74-99) mg/dL Calcium (8.4-10.2) mg/dL Crossmatch Assessment and Plan Plan: Acute upper GI bleed, secondary to Justin's ulcer. The patient also has a gastric polyp and a hiatal hernia. Concern of ongoing GI bleed and general surgery is on the case. There has been a steady drop in hemoglobin down to 7.2. The patient was given Eliquis reversal with Kcentra. The patient received a total of 7 days of packed RBC, 1 unit of platelet, 2 units of fresh frozen plasma and the patient remains on IV Protonix. Currently she is on clear liquid diet. Acute blood loss anemia secondary to massive upper GI bleeding. Hypotension/hypovolemia, secondary to above, currently hemodynamically stable. Not requiring pressors Atrial fibrillation with rapid ventricular response, with better rate control, patient previously bolused with IV amiodarone Acute diastolic congestive heart failure Acute hypoxemic respiratory failure, currently on 2 L/min nasal cannula History of severe aortic stenosis status post TAVR at outside facility June,; echocardiogram done this admission estimates a left ventricular ejection fraction of 55 to 60%, bioprosthetic aortic valve with mean gradient of 16 mmHg and mild perivalvular regurgitation, mild to moderate MR, moderate pulmonary hypertension, and severe tricuspid regurgitation. History of hypertension History of breast cancer with previous right lumpectomy Plan: Keep anticoagulation on hold Kcentra was given Blood products were given Monitor hemoglobin repeat another hemoglobin is 4 hours Clear liquid diet IV Protonix EGD was performed and epinephrine was injected into the Justin's ulcer Discontinue the amiodarone drip and switch the patient to oral amiodarone 400 mg p.o. twice a day Continue metoprolol 50 mg p.o. twice a day Continue serial H&H rechecks; General Surgery is on the case Patient's condition currently critical Will continue to follow and make further recommendations based on her progress. Evaluation was done in 31 minutes. Time with Patient: Greater than 30
[2024-08-06] MEDS ORDERED: PANTOPRAZOLE 40 MG TABLET PO SCH (17:30)
[2024-08-06 18:13] LABS: Anisocytosis Slight; Basophils # (A) 0.1 k/uL (0-0.2); Basophils % (A) 0 %; Eosinophils # (A) 0.1 k/uL (0-0.7); Eosinophils % (A) 1 %; HCT 22.5 % (34.0-46.0); HGB 7.2 gm/dL (11.4-16.0); Hypochromasia Slight; Lymphocytes # (A) 1.9 k/uL (1.0-4.8); Lymphocytes % (A) 11 %; MCH 30.2 pg (25.0-35.0); MCV 94.6 fL (80.0-100.0); Macrocytosis Slight; Mean Platelet Volume 9.1; Monocytes % (A) 6 %; Neutrophils # (A) 14.1 k/uL (1.3-7.7); Neutrophils % (A) 81 %; Platelet Count 159 k/uL (150-450); Poikilocytosis Slight; RBC 2.38 m/uL (3.80-5.40); WBC 17.4 k/uL (3.8-10.6)
[2024-08-06] MEDS: PANTOPRAZOLE 40 MG/10 ML VIAL IVP SCH (20:42)
[2024-08-06 22:47] LABS: Anisocytosis Slight; Basophils # (A) 0.1 k/uL (0-0.2); Basophils % (A) 0 %; Eosinophils # (A) 0.1 k/uL (0-0.7); Eosinophils % (A) 1 %; HCT 21.3 % (34.0-46.0); HGB 7.1 gm/dL (11.4-16.0); Hypochromasia Slight; Lymphocytes % (A) 11 %; MCH 32.2 pg (25.0-35.0); MCHC 33.5 g/dL (31.0-37.0); MCV 96.1 fL (80.0-100.0); Macrocytosis Slight; Mean Platelet Volume 8.1; Monocytes % (A) 5 %; Neutrophils # (A) 14.8 k/uL (1.3-7.7); Neutrophils % (A) 82 %; Platelet Count 155 k/uL (150-450); Poikilocytosis Slight; RBC 2.21 m/uL (3.80-5.40); RDW 17.7 % (11.5-15.5); WBC 18.1 k/uL (3.8-10.6)
[2024-08-07 06:08] LABS: African American GFR (CKD) 86 (>60 ml/min/1.73 sqM); Anion Gap 6 mmol/L; Blood Urea Nitrogen 31 mg/dL (7-17); Calcium 7.7 mg/dL (8.4-10.2); Carbon Dioxide 24 mmol/L (22-30); Chloride 103 mmol/L (98-107); Glucose 108 mg/dL (74-99); Non-African American GFR(CKD) 75 (>60 ml/min/1.73 sqM); Potassium 4.2 mmol/L (3.5-5.1); Sodium 133 mmol/L (137-145)
[2024-08-07 06:22] LABS: Anisocytosis Slight; HCT 20.5 % (34.0-46.0); Hypochromasia Slight; MCH 32.1 pg (25.0-35.0); MCHC 33.2 g/dL (31.0-37.0); MCV 96.7 fL (80.0-100.0); Macrocytosis Slight; Mean Platelet Volume 8.4; Platelet Count 146 k/uL (150-450); Poikilocytosis Slight; RBC 2.12 m/uL (3.80-5.40); RDW 18.2 % (11.5-15.5); WBC 16.5 k/uL (3.8-10.6)
[2024-08-07 06:24] LABS: HGB 6.8 gm/dL (11.4-16.0)
--- NOTE | 2024-08-07 07:44 | P.PN ---
Subjective Progress Note Date: 08/07/24 PROGRESS NOTE The patient is an 89-year-old female with a prior history of severe aortic stenosis, status post TAVR, performed at [facility], history of atrial fibrillation presented with symptoms of progressive dyspnea, peripheral edema and weight gain consistent with heart failure and preserved systolic function. She had an echocardiogram that showed a preserved systolic function with normal functioning of her TAVR and severe tricuspid regurgitation. Yesterday she started having evidence of GI bleeding with a drop in her hemoglobin, hypotension and tachycardia. She was transferred to the ICU and received 5 units of blood. She continues to have bleeding and she is scheduled to undergo an upper endoscopy today. She continues to be in atrial fibrillation with episodes of rapid ventricular response. She is on no vasopressor at this time. She feels tired and fatigued. Her breathing is stable. She denies any chest discomfort. She has no prior history of GI bleeding according to her. August 06: The patient continues to have GI bleeding although improved. She denies any shelia st discomfort. She feels tired. She continues to be in atrial fibrillation with rapid ventricle response. Her breathing is unchanged. She has no further vomiting. Her blood pressure has been stable and her urinary output has been stable. She continues to be on IV amiodarone. Chest x-ray shows no acute infiltrate. Her last hemoglobin is 8.2. August 07: The patient feels tired today, has some dyspnea. She continues to be in atrial fibrillation with controlled ventricular response. She has a drop in the hemoglobin and she is scheduled to undergo transfusion today. She had no gross bleeding overnight. She has no nausea or vomiting. Hemodynamically she is stable. She is tolerating p.o. Medications: Amiodarone 400 mg twice a day, Farxiga 10 mg daily, furosemide 40 mg daily, meto prolol tartrate 50 mg 3 times a day, Protonix, her anticoagulation is on hold. PHYSICAL EXAMINATION: Blood pressure 94/50 heart rate 90 LUNGS: [Clear to auscultation] HEART: [Irregular rate and rhythm, S1, S2. No S3. Systolic ejection murmur] ABDOMEN: [Soft, nontender, no organomegaly] EXTREMETIES: [No edema] LAB: Hemoglobin 6.8. BUN 31, creatinine 0.73, potassium 4.2. IMPRESSION: 1. Acute GI bleeding the patient who was anticoagulated for atrial fibrillation. Patient had a drop in her hemoglobin and is scheduled to undergo transfusion today 2. Status post TAVR 3. Permanent atrial fibrillation with rapid ventricular response with the GI bleeding 4. CHF with preserved systolic function, improved PLAN: 1. Transfuse as needed 2. Continue oral beta-iggy and amiodarone 3. The patient will need to be evaluated as an outpatient for left atrial appendage closure device 4. Follow hemoglobin closely. 5. Depending on her progress further recommendations will be made Objective - Vital Signs Vital signs: Vital Signs Temp 99.1 F 08/07/24 04:00 Pulse 91 08/07/24 07:00 Resp 13 08/07/24 07:00 BP 94/48 08/07/24 07:00 Pulse Ox 96 08/07/24 07:00 FiO2 Intake & Output 08/06/24 08/07/24 08/07/24 18:59 06:59 18:59 Intake Total 790 Output Total 620 545 30 Balance 170 -545 -30 Weight 98.4 kg 93.2 kg Intake: IV 40 0.9S 40 Intake, IV Titration 250 Amount Amiodarone 450 mg In 250 Dextrose 5% in Water 250 ml @ 0.5 MG/MIN 16.667 mls/hr IV .Q15H [facility] Rx#: [id number] Oral 500 Output: Urine 620 545 30 Other: Voiding Method Indwelling Catheter Indwelling Catheter # Bowel Movements 1 - Labs CBC & Chem 7: 08/07/24 05:11 08/07/24 05:11 Labs: Abnormal Lab Results - Last 24 Hours (Table) 08/04/24 08/06/24 08/06/24 Range/Units 21:00 11:13 14:30 WBC 17.2 H 16.7 H (3.8-10.6) k/uL RBC 2.45 L 2.23 L (3.80-5.40) m/uL Hgb 7.8 L 7.2 L (11.4-16.0) gm/dL Hct 23.0 L 21.2 L (34.0-46.0) % RDW 17.6 H 16.9 H (11.5-15.5) % Plt Count 147 L (150-450) k/uL Neutrophils # 13.5 H 13.6 H (1.3-7.7) k/uL Sodium (137-145) mmol/L BUN (7-17) mg/dL Glucose (74-99) mg/dL Calcium (8.4-10.2) mg/dL Crossmatch See Detail 08/06/24 08/06/24 08/07/24 Range/Units 17:45 22:27 05:11 WBC 17.4 H 18.1 H (3.8-10.6) k/uL RBC 2.38 L 2.21 L (3.80-5.40) m/uL Hgb 7.2 L 7.1 L (11.4-16.0) gm/dL Hct 22.5 L 21.3 L (34.0-46.0) % RDW 18.0 H 17.7 H (11.5-15.5) % Plt Count (150-450) k/uL Neutrophils # 14.1 H 14.8 H (1.3-7.7) k/uL Sodium 133 L (137-145) mmol/L BUN 31 H (7-17) mg/dL Glucose 108 H (74-99) mg/dL Calcium 7.7 L (8.4-10.2) mg/dL Crossmatch 08/07/24 Range/Units 05:11 WBC 16.5 H (3.8-10.6) k/uL RBC 2.12 L (3.80-5.40) m/uL Hgb 6.8 L* (11.4-16.0) gm/dL Hct 20.5 L (34.0-46.0) % RDW 18.2 H (11.5-15.5) % Plt Count 146 L (150-450) k/uL Neutrophils # (1.3-7.7) k/uL Sodium (137-145) mmol/L BUN (7-17) mg/dL Glucose (74-99) mg/dL Calcium (8.4-10.2) mg/dL Crossmatch
--- NOTE | 2024-08-07 12:37 | P.PN ---
Subjective Progress Note Date: 08/07/24 89-year-old female with past medical history significant for atrial fibrillation maintained on Eliquis, aortic valve replacement (June 2023), and hypertension presents to the emergency department today for difficulty breathing. She states that about 3 weeks ago she noticed an increase in bilateral lower extremity swelling and then over the last week she has had increasing shortness of breath to the point where she has had lightheadedness with walking. She does deny dyspnea at rest. She also reports a 13 pound weight gain over the last 2-1/2 weeks as well as a nonproductive cough over the last week. Additionally over the last 2 weeks she has had orthopnea. Of note, she was recently diagnosed with atrial fibrillation (06/27/2024) and started Eliquis about 3 weeks ago. She reports palpitations with exertion over the last 3 weeks. She denies fever/chills, nausea/vomiting, chest pain. Furthermore, she denied PND. 08/02/24 - Patient seen and examined at bedside. No acute events overnight. Claims that breathing is slightly improved. 08/03/24 - Patient seen and examined at bedside. No acute events overnight. Claims that breathing is slightly improved. 08/04/24 - Patient seen and examined at bedside this morning. She had an echocardiogram completed this morning showed ejection fraction 55 to 60%. Plan is for patient to be discharged tomorrow following recheck of her proBNP per cardiology's request. She has no acute complaints at this time. 08/05/24 - Patient seen and examined at bedside this morning, now in ICU room 257. Overnight and a team was called as the patient was hypotensive and tachycardic with heart rate in the 150s, and she was noted to have multiple episodes of bright red hematemesis. At that time her most recent CBC showed WBCs 9.7, hemoglobin 7.3, platelets 363, PT 13, INR 1.2, previous APTT 22. Most recent CMP showed sodium 135, potassium 3.5, chloride 98, serum bicarb 34, BUN 50, creatinine 0.69, glucose 91. Following transfer to the ICU her hematemesis had stopped however she had been having large maroon stools with clots noted. She received 5 PRBC transfusions overnight and 1 unit cryoprecipitate, general surgery was consulted for an acute GI bleed and they performed EGD which showed Justin lesions of the stomach as well as a large polyp, both of which were injected with epinephrine. She will receive an additional 2 units of PRBCs, 2 units of FFP, and 1 unit of platelets. When seen at bedside this morning, she states that she is feeling pretty well on the whole. 08/06/24 - Patient seen and examined at bedside this morning,remaining in the ICU room 257. Patient's bowel movements are slowing, remaining dark and tarry. She continues to deny any abdominal pain, nausea, vomiting, fevers or chills. She notes having some increased welling of her right upper extremity, with some associated tenderness. 08/07/24 - Patient seen and examined at bedside this morning, remaining in the ICU room 257. No gross bleeding reported overnight. She continues to deny any abdominal pain, nausea, vomiting, fevers or chills. CBC this morning was significant for WBC 16.5, hemoglobin 6.8, hematocrit 20.5, platelet count 146. She is scheduled undergo transfusion with PRBCs this morning secondary to hemoglobin 6.8. Continues to have some tenderness of the right upper extremity, duplex ultrasound was completed yesterday which showed superficial thrombosis of the right cephalic vein. She has no acute complaints at this time, resting comfortably in bed. REVIEW OF SYSTEMS: Pertinent positives and negatives noted in HPI. Physical Exam: General: nontoxic, no distress, appears at stated age Derm: warm, dry, intact Head: atraumatic, normocephalic, symmetric Eyes: EOMI, anicteric sclera Mouth: no lip lesion, mucus membranes moist Cardiovascular: S1 S2 reg, no murmur, rubs, or gallops Lungs: Bibasilar rales, no accessory muscle use Abdominal: soft, non-tender to palpataion, no appreciable organomegaly Extremities: Edema, some tenderness to palpation of the right upper extremity Neuro: Alert, Oriented, CNII-XII grossly intact, gait normal Psych: well appearing, appropriate affect Data Received Today: Labs: WBC 16.5, hemoglobin 6.8, hematocrit 20.5, platelet 146; sodium 133, potassium 4.2, BUN 31, creatinine 0.73, calcium 7.7 Imagining: -Venous Doppler ultrasound of the right upper extremity showed no evidence for DVT, superficial thrombosis of the right cephalic vein -EKG this morning dependently interpreted showed evidence of A-fib with RVR, with a rate of 119 Assessment and plan 89-year-old female with past medical history significant for atrial fibrillation maintained on Eliquis, aortic valve replacement (June 2023), and hypertension presents to the emergency department today for difficulty breathing. #Acute GI bleed, previously on Eliquis for atrial fibrillation with RVR #Peptic ulcer disease #Acute blood loss anemia, s/p transfusions #Hypocalcemia secondary to blood transfusions -No prior history of GI bleeding -Hemoglobin noted to be 6.8 this morning CBC; undergoing. BC transfusion this morning -Hypocalcemia secondary to citrate preservative and blood transfusion; continue to monitor BMP -General Surgery consulted for acute GI bleed, EGD performed -Continue to monitor CBC every 4 hours -Hold Eliquis #Acute CHF exacerbation #Atrial fibrillation with RVR #History of aortic stenosis status post TAVR #Hypertension #Contraction alkalosis, resolved -Cardiology following -Echocardiogram showed EF 55 to 60% -Switched to oral amiodarone 400 mg twice daily -Metoprolol decreased to 50 mg twice daily -EKG this morning (08/07/2024) independently interpreted showed she remained in atrial fibrillation with RVR, with a rate of 119 -Eliquis 2.5 twice daily -Farxiga 10 mg daily -Rechecked proBNP 1820 -Continue to monitor BMP #Superficial thrombosis of the right cephalic vein -Venous Doppler ultrasound of the right upper extremity showed no evidence for DVT, superficial thrombosis of the right cephalic vein -Continue supportive care for now -Continue to monitor for any acute changes #Hyponatremia -Sodium 133 this morning -Continue to monitor BMP #Transaminitis, improving -Likely congestive hepatopathy -Continue to monitor DVT ppx: Eliquis on hold GI PPx: Protonix 40 mg twice daily Code status: Full code F: None E: Replete as needed N: Clear liquid A: Ambulatory Anticipated discharge place: Home Anticipated discharge time: Tomorrow Dictation was produced using [employer] dictation software. please excuse any grammatical, word or spelling errors. I have seen and evaluated the patient today. Discussed with the resident and agree with the residents finding and plan as documented in the resident's note. Changes highlighted in blue font. Objective - Vital Signs Vital signs: Vital Signs Temp 97.3 F L 08/07/24 08:00 Pulse 104 H 08/07/24 08:00 Resp 21 08/07/24 08:00 BP 89/55 08/07/24 08:00 Pulse Ox 93 L 08/07/24 08:00 FiO2 Intake & Output 08/06/24 08/07/24 08/07/24 18:59 06:59 18:59 Intake Total 790 0 Output Total 620 545 52 Balance 170 -545 -52 Weight 98.4 kg 93.2 kg Intake: IV 40 0.9S 40 Intake, IV Titration 250 Amount Amiodarone 450 mg In 250 Dextrose 5% in Water 250 ml @ 0.5 MG/MIN 16.667 mls/hr IV .Q15H [facility] Rx#: [id number] Oral 500 Blood Product 0 Rc As-1 Unit 0 [id number] Output: Urine 620 545 52 Other: Voiding Method Indwelling Catheter Indwelling Catheter # Bowel Movements 1 - Labs CBC & Chem 7: 08/07/24 05:11 08/07/24 05:11 Labs: Abnormal Lab Results - Last 24 Hours (Table) 08/04/24 08/06/24 08/06/24 Range/Units 21:00 11:13 14:30 WBC 17.2 H 16.7 H (3.8-10.6) k/uL RBC 2.45 L 2.23 L (3.80-5.40) m/uL Hgb 7.8 L 7.2 L (11.4-16.0) gm/dL Hct 23.0 L 21.2 L (34.0-46.0) % RDW 17.6 H 16.9 H (11.5-15.5) % Plt Count 147 L (150-450) k/uL Neutrophils # 13.5 H 13.6 H (1.3-7.7) k/uL Sodium (137-145) mmol/L BUN (7-17) mg/dL Glucose (74-99) mg/dL Calcium (8.4-10.2) mg/dL Crossmatch See Detail 08/06/24 08/06/24 08/07/24 Range/Units 17:45 22:27 05:11 WBC 17.4 H 18.1 H (3.8-10.6) k/uL RBC 2.38 L 2.21 L (3.80-5.40) m/uL Hgb 7.2 L 7.1 L (11.4-16.0) gm/dL Hct 22.5 L 21.3 L (34.0-46.0) % RDW 18.0 H 17.7 H (11.5-15.5) % Plt Count (150-450) k/uL Neutrophils # 14.1 H 14.8 H (1.3-7.7) k/uL Sodium 133 L (137-145) mmol/L BUN 31 H (7-17) mg/dL Glucose 108 H (74-99) mg/dL Calcium 7.7 L (8.4-10.2) mg/dL Crossmatch 08/07/24 Range/Units 05:11 WBC 16.5 H (3.8-10.6) k/uL RBC 2.12 L (3.80-5.40) m/uL Hgb 6.8 L* (11.4-16.0) gm/dL Hct 20.5 L (34.0-46.0) % RDW 18.2 H (11.5-15.5) % Plt Count 146 L (150-450) k/uL Neutrophils # (1.3-7.7) k/uL Sodium (137-145) mmol/L BUN (7-17) mg/dL Glucose (74-99) mg/dL Calcium (8.4-10.2) mg/dL Crossmatch
--- NOTE | 2024-08-07 13:04 | P.PN ---
Subjective Progress Note Date: 08/07/24 SURGICAL PROGRESS NOTE CHIEF COMPLAINT: GI bleed HISTORY OF PRESENT ILLNESS: Patient remains in the ICU. Patient complains of right arm swelling. Patient had 3 maroon stools during the day yesterday. 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 Otherwise no further bloody bowel movements. Patient denies any abdominal pain. She is tolerating the clear liquids. Her hemoglobin did drop to 6.8 and she is receiving a unit of blood. Currently afebrile. Heart rate 100. BP 82/54. WBC is 16.5 Hgb 6.8 platelets 146. Venous Doppler SVT right cephalic vein PHYSICAL EXAM: VITAL SIGNS: Reviewed. GENERAL: Well-developed in no acute distress. ABDOMEN: Soft. Nondistended. Nontender. NEUROLOGIC: Alert and oriented. Cranial nerves II through XII grossly intact. ASSESSMENT: 1. Upper GI bleed status post EGD with injection and results reporting Justin's ulcer, hiatal hernia, duodenal polyp and gastric polyp 2. Acute blood loss anemia due to GI bleed 3. Atrial fibrillation PLAN: -Continue to monitor hemoglobin -Continue to monitor for any signs or symptoms of bleeding -Agree with blood transfusion for hemoglobin of 6.8 -Continue IV Protonix twice daily Physician Vehicle Operator note has been reviewed by physician. Signing provider agrees with the documented findings, assessment, and plan of care. Objective - Vital Signs Vital signs: Vital Signs Temp 97.3 F L 08/07/24 08:00 Pulse 100 08/07/24 10:00 Resp 22 08/07/24 11:00 BP 82/54 08/07/24 11:00 Pulse Ox 96 08/07/24 09:00 FiO2 Intake & Output 08/06/24 08/07/24 08/07/24 18:59 06:59 18:59 Intake Total 790 490 Output Total 620 545 132 Balance 170 -545 358 Weight 98.4 kg 93.2 kg Intake: IV 40 0.9S 40 Intake, IV Titration 250 Amount Amiodarone 450 mg In 250 Dextrose 5% in Water 250 ml @ 0.5 MG/MIN 16.667 mls/hr IV .Q15H JENNIFER Rx#: [id number] Oral 500 490 Blood Product 0 Rc As-1 Unit 0 [id number] Output: Urine 620 545 132 Other: Voiding Method Indwelling Catheter Indwelling Catheter # Bowel Movements 1 - Labs CBC & Chem 7: 08/07/24 05:11 08/07/24 05:11 Labs: Abnormal Lab Results - Last 24 Hours (Table) 08/04/24 08/06/24 08/06/24 Range/Units 21:00 14:30 17:45 WBC 16.7 H 17.4 H (3.8-10.6) k/uL RBC 2.23 L 2.38 L (3.80-5.40) m/uL Hgb 7.2 L 7.2 L (11.4-16.0) gm/dL Hct 21.2 L 22.5 L (34.0-46.0) % RDW 16.9 H 18.0 H (11.5-15.5) % Plt Count 147 L (150-450) k/uL Neutrophils # 13.6 H 14.1 H (1.3-7.7) k/uL Sodium (137-145) mmol/L BUN (7-17) mg/dL Glucose (74-99) mg/dL Calcium (8.4-10.2) mg/dL Crossmatch See Detail 08/06/24 08/07/24 08/07/24 Range/Units 22:27 05:11 05:11 WBC 18.1 H 16.5 H (3.8-10.6) k/uL RBC 2.21 L 2.12 L (3.80-5.40) m/uL Hgb 7.1 L 6.8 L* (11.4-16.0) gm/dL Hct 21.3 L 20.5 L (34.0-46.0) % RDW 17.7 H 18.2 H (11.5-15.5) % Plt Count 146 L (150-450) k/uL Neutrophils # 14.8 H (1.3-7.7) k/uL Sodium 133 L (137-145) mmol/L BUN 31 H (7-17) mg/dL Glucose 108 H (74-99) mg/dL Calcium 7.7 L (8.4-10.2) mg/dL Crossmatch
[2024-08-07 15:50] LABS: Anisocytosis Slight; HCT 25.5 % (34.0-46.0); Hypochromasia Slight; MCH 32.3 pg (25.0-35.0); MCHC 33.8 g/dL (31.0-37.0); MCV 95.5 fL (80.0-100.0); Macrocytosis Slight; Platelet Count 144 k/uL (150-450); Poikilocytosis Slight; RBC 2.67 m/uL (3.80-5.40); RDW 16.9 % (11.5-15.5); WBC 17.6 k/uL (3.8-10.6)
[2024-08-07 15:51] LABS: HGB 8.6 gm/dL (11.4-16.0)
--- NOTE | 2024-08-07 16:22 | P.PN ---
Subjective Progress Note Date: 08/07/24 Patient is an 89-year-old female with past medical history significant for hypertension, severe aortic stenosis with previous TAVR performed June [address] [facility], atrial fibrillation anticoagulated on Eliquis. Presented the emergency department back on 08/01/2024 with a chief complaint of shortness of breath. Found to be in atrial fibrillation with rapid ventricular response. Initially, started on Cardizem infusion. Note that she is anticoagulated on Eliquis. Echocardiogram done this admission Left ventricular ejection fraction estimated at 55 to 60%, bioprosthetic aortic valve with mean gradient of 16 mmHg and mild perivalvular regurgitation, mild to moderate MR, moderate pulmonary hypertension, and severe tricuspid regurgitation. Chest x- ray done admission showing cardiomegaly with small bilateral pleural effusions. Patient was admitted to the cardiac stepdown unit. A rapid response was called around 20:18 last night. She was noted to be hypotensive and tachycardic with a heart rate in the 150s. She was having multiple episodes of bright red hematemesis. Most recent CBC: WBC count 9.7, hemoglobin 7.3, platelets 363. PT 13, INR 1.2, previous APTT 22. Most recent available CMP: Sodium 135, potassium 3.5, chloride 98, serum bicarb 34, BUN 50, creatinine 0.69, glucose 91. LFTs not elevated. NT proBNP 1930. Troponin less than 0.012 x 1. Patient currently being evaluated in room 257. Alert and oriented. Generating pale. hematemesis subsided, however, is now having large john stools. Approximately 6 or 7 episodes so far, with clots. Heart rate remains tachycardic around 110 bpm. Blood pressure also hypotensive and is most recently 75/59 mmHg. General surgery was consulted. Patient was transferred to the intensive care unit. 2 units PRBCs were ordered. Patient is going to be given a dose of Kcentra. Patient denies history of GI bleeding. Most recent screening colonoscopy from 2018. Denies NSAID use. Has been taking Eliquis as reported above, and this is obviously on hold. Previously started on amiodarone with IV bolus and continues on amiodarone at 1 mg/min. Two additional liters of normal saline fluid bolus ordered. Overnight, the patient was being monitored closely and the most recent hemoglobin it was measured on this patient from this morning was at 10.2. Noted the patient underwent an EGD today and the patient was found to have a ulcer within the hiatal hernia. Epinephrine injection was done. After arrival back to the intensive care unit, the patient had another melanotic stools. In addition to units of packed RBC was ordered by general surgery. In summary, the patient has received a total of 5 units of packed RBC, she will be given an 2 additional units of fresh frozen plasma and 1 unit of cryoprecipitate. At the same time, the patient remains in atrial fibrillation with RVR. The patient is currently on amiodarone drip. Blood pressure is well-maintained. No significant hypotension at this point in time. She is awake and alert. She is NPO. On 08/06/2024, the patient is being seen in follow-up regarding her ongoing GI bleeding. Noted overnight, the patient had 3 bowel movements most recent of which was around 830 this morning and this was described to be bloody. There has been ongoing steady drop in hemoglobin and the most recent hemoglobin is done to 7.2. The patient is on clear liquid diet. The patient remains on IV Protonix. Receiving 4 mg of IV Protonix twice a day. No nausea. No emesis. No abdominal pain. She has received a total of 7 units of RBC, 1 unit of platel et and 2 units of fresh frozen plasma. The patient remains on amiodarone drip at 0.5 mg/min and the patient remains on metoprolol 50 mg p.o. twice a day. She remains on IV fluids and currently the IV fluids are at KVO. She is awake and alert and communicating. No significant complaints. General surgery remains on the case. On today's evaluation of 08/07/2024, the patient is not having any active GI bleeding. The patient had a smear of bright blood yesterday evening. Nevertheless, no significant melanotic stools. Abdominal pain. No nausea or emesis. No chest pain. Follow-up hemoglobin from today is at 6.8 and the patient will be given packed RBC x 1 bringing the total number of packed RBC that the patient has received during this current admission up to 8 units. Otherwise, she is doing well. She is stable. She is on full liquid diet. She remains on oxygen 2 L/min nasal cannula. IV fluids are currently at KVO. Rest of the blood work shows a WBC count of 17.6, hemoglobin 8.6 and a platelet count of 144. BUN 31 with a creatinine of 0.7. Sodium levels at 133. The patient's blood pressure remains soft. There is no significant hypotension. The amiodarone is at 400 mg p.o. twice a day and the patient is also on metoprolol 50 mg p.o. 3 times daily. Denies having any other specific complaints for now. Objective - Vital Signs Vital signs: Vital Signs Temp 97.3 F L 08/07/24 08:00 Pulse 104 H 08/07/24 08:00 Resp 21 08/07/24 08:00 BP 89/55 08/07/24 08:00 Pulse Ox 93 L 08/07/24 08:00 FiO2 Intake & Output 08/06/24 08/07/24 08/07/24 18:59 06:59 18:59 Intake Total 790 0 Output Total 620 545 52 Balance 170 -545 -52 Weight 98.4 kg 93.2 kg Intake: IV 40 0.9S 40 Intake, IV Titration 250 Amount Amiodarone 450 mg In 250 Dextrose 5% in Water 250 ml @ 0.5 MG/MIN 16.667 mls/hr IV .Q15H JENNIFER Rx#: [id number] Oral 500 Blood Product 0 Rc As-1 Unit 0 [id number] Output: Urine 620 545 52 Other: Voiding Method Indwelling Catheter Indwelling Catheter # Bowel Movements 1 - Exam GENERAL EXAM: Alert, 89-year-old white female, generalized pallor, frequent large maroon stools, currently on 2 L of oxygen by nasal cannula HEAD: Normocephalic and atraumatic EYES: Normal reaction of pupils, equal size. NOSE: Clear with pink turbinates. THROAT: No erythema or exudates. NECK: No masses, no JVD. CHEST: No chest wall deformity. LUNGS: Equal air entry with no crackles, wheeze, rhonchi or dullness. On 2 L/mi n nasal cannula. No conversational dyspnea or accessory muscle use.. CVS: S1 and S2 normal with soft grade 1 systolic murmur murmur, irregular rhythm. No extra heart sounds, the patient remains tachycardic ABDOMEN: Abdomen flat and soft, hyperactive bowel sounds, no hepatosplenomegaly, no guarding or rigidity. SPINE: No scoliosis or deformity SKIN: No rashes CENTRAL NERVOUS SYSTEM: No focal deficits, tone is normal in all 4 extremities. EXTREMITIES: There is no peripheral edema, clubbing, or cyanosis. Peripheral pulses are intact. - Labs CBC & Chem 7: 08/07/24 15:19 08/07/24 05:11 Labs: Abnormal Lab Results - Last 24 Hours (Table) 08/04/24 08/06/24 08/06/24 Range/Units 21:00 11:13 14:30 WBC 17.2 H 16.7 H (3.8-10.6) k/uL RBC 2.45 L 2.23 L (3.80-5.40) m/uL Hgb 7.8 L 7.2 L (11.4-16.0) gm/dL Hct 23.0 L 21.2 L (34.0-46.0) % RDW 17.6 H 16.9 H (11.5-15.5) % Plt Count 147 L (150-450) k/uL Neutrophils # 13.5 H 13.6 H (1.3-7.7) k/uL Sodium (137-145) mmol/L BUN (7-17) mg/dL Glucose (74-99) mg/dL Calcium (8.4-10.2) mg/dL Crossmatch See Detail 08/06/24 08/06/24 08/07/24 Range/Units 17:45 22:27 05:11 WBC 17.4 H 18.1 H (3.8-10.6) k/uL RBC 2.38 L 2.21 L (3.80-5.40) m/uL Hgb 7.2 L 7.1 L (11.4-16.0) gm/dL Hct 22.5 L 21.3 L (34.0-46.0) % RDW 18.0 H 17.7 H (11.5-15.5) % Plt Count (150-450) k/uL Neutrophils # 14.1 H 14.8 H (1.3-7.7) k/uL Sodium 133 L (137-145) mmol/L BUN 31 H (7-17) mg/dL Glucose 108 H (74-99) mg/dL Calcium 7.7 L (8.4-10.2) mg/dL Crossmatch 08/07/24 Range/Units 05:11 WBC 16.5 H (3.8-10.6) k/uL RBC 2.12 L (3.80-5.40) m/uL Hgb 6.8 L* (11.4-16.0) gm/dL Hct 20.5 L (34.0-46.0) % RDW 18.2 H (11.5-15.5) % Plt Count 146 L (150-450) k/uL Neutrophils # (1.3-7.7) k/uL Sodium (137-145) mmol/L BUN (7-17) mg/dL Glucose (74-99) mg/dL Calcium (8.4-10.2) mg/dL Crossmatch Assessment and Plan Plan: Acute upper GI bleed, secondary to Justin's ulcer. The patient also has a gastric polyp and a hiatal hernia. The patient was given Eliquis reversal with Kcentra. The patient received a total of 8 days of packed RBC, 1 unit of platelet, 2 units of fresh frozen plasma and the patient remains on IV Protonix. Currently she is on clear liquid diet. The most recent hemoglobin from today was 6.8 and the patient was given another unit of packed RBC, a total of 8 units during this current hospitalization. Acute blood loss anemia secondary to massive upper GI bleeding. Hypotension/hypovolemia, secondary to above, currently hemodynamically stable. Not requiring pressors Atrial fibrillation with rapid ventricular response, with better rate control, patient is currently on p.o. amiodarone and metoprolol Acute diastolic congestive heart failure, stable Acute hypoxemic respiratory failure, currently on 2 L/min nasal cannula History of severe aortic stenosis status post TAVR at outside facility June,; echocardiogram done this admission estimates a left ventricular ejection fraction of 55 to 60%, bioprosthetic aortic valve with mean gradient of 16 mmHg and mild perivalvular regurgitation, mild to moderate MR, moderate pulmonary hypertension, and severe tricuspid regurgitation. History of hypertension History of breast cancer with previous right lumpectomy Plan: Hemodynamically stable. No evidence of any ongoing GI bleeding. Give additional unit of packed RBC Keep anticoagulation on hold Kcentra was given Blood products were given Monitor hemoglobin Clear liquid diet, advance diet as tolerated per general surgery IV Protonix EGD was performed and epinephrine was injected into the Justin's ulcer Continue oral amiodarone 400 mg p.o. twice a day Continue metoprolol 50 mg p.o. twice a day Continue serial H&H rechecks; General Surgery is on the case Patient's condition currently critical Will continue to follow and make further recommendations based on her progress. Evaluation was done in 31 minutes. Time with Patient: Greater than 30
[2024-08-08 04:27] LABS: African American GFR (CKD) 82 (>60 ml/min/1.73 sqM); Anion Gap 1 mmol/L; Blood Urea Nitrogen 22 mg/dL (7-17); Calcium 7.6 mg/dL (8.4-10.2); Carbon Dioxide 26 mmol/L (22-30); Chloride 103 mmol/L (98-107); Glucose 96 mg/dL (74-99); Non-African American GFR(CKD) 71 (>60 ml/min/1.73 sqM); Sodium 130 mmol/L (137-145)
[2024-08-08 04:48] LABS: Anisocytosis Slight; Basophils % (A) 0 %; Eosinophils # (A) 0.2 k/uL (0-0.7); Eosinophils % (A) 2 %; HCT 22.4 % (34.0-46.0); HGB 7.5 gm/dL (11.4-16.0); Hypochromasia Slight; Lymphocytes # (A) 1.6 k/uL (1.0-4.8); Lymphocytes % (A) 13 %; MCHC 33.6 g/dL (31.0-37.0); MCV 95.3 fL (80.0-100.0); Macrocytosis Slight; Mean Platelet Volume 8.5; Monocytes # (A) 0.8 k/uL (0-1.0); Monocytes % (A) 6 %; Neutrophils # (A) 9.5 k/uL (1.3-7.7); Neutrophils % (A) 78 %; Platelet Count 134 k/uL (150-450); Poikilocytosis Slight; RBC 2.35 m/uL (3.80-5.40); WBC 12.2 k/uL (3.8-10.6)
--- NOTE | 2024-08-08 13:35 | P.PN ---
Subjective Progress Note Date: 08/08/24 PROGRESS NOTE The patient is an 89-year-old female with a prior history of severe aortic stenosis, status post TAVR, performed at [facility], history of atrial fibrillation presented with symptoms of progressive dyspnea, peripheral edema and weight gain consistent with heart failure and preserved systolic function. She had an echocardiogram that showed a preserved systolic function with normal functioning of her TAVR and severe tricuspid regurgitation. Yesterday she started having evidence of GI bleeding with a drop in her hemoglobin, hypotension and tachycardia. She was transferred to the ICU and received 5 units of blood. She continues to have bleeding and she is scheduled to undergo an upper endoscopy today. She continues to be in atrial fibrillation with episodes of rapid ventricular response. She is on no vasopressor at this time. She feels tired and fatigued. Her breathing is stable. She denies any chest discomfort. She has no prior history of GI bleeding according to her. August 06: The patient continues to have GI bleeding although improved. She denies any shelia st discomfort. She feels tired. She continues to be in atrial fibrillation with rapid ventricle response. Her breathing is unchanged. She has no further vomiting. Her blood pressure has been stable and her urinary output has been stable. She continues to be on IV amiodarone. Chest x-ray shows no acute infiltrate. Her last hemoglobin is 8.2. August 07: The patient feels tired today, has some dyspnea. She continues to be in atrial fibrillation with controlled ventricular response. She has a drop in the hemoglobin and she is scheduled to undergo transfusion today. She had no gross bleeding overnight. She has no nausea or vomiting. Hemodynamically she is stable. She is tolerating p.o. August 08: The patient continues to be in atrial fibrillation with controlled ventricular response. She underwent transfusion yesterday. She is complaining of right arm discomfort with movement. She denies any dizziness or palpitations. She has no significant recurrent bleeding. She is tolerating p.o. She continues to feel fatigued. Medications: Amiodarone 400 mg twice a day, Farxiga 10 mg daily, metoprolol tartrate 50 mg 3 times a day, Protonix, her anticoagulation is on hold. PHYSICAL EXAMINATION: Blood pressure 107/50 heart rate 90 LUNGS: Clear to auscultation HEART: Irregular rate and rhythm, S1, S2. No S3. Systolic ejection murmur ABDOMEN: Soft, nontender, no organomegaly EXTREMETIES: 1+ edema LAB: Hemoglobin 7.5. BUN 22, creatinine 0.76, potassium 4.0 IMPRESSION: 1. Acute GI bleeding the patient who was anticoagulated for atrial fibrillation. No gross bleeding at this point 2. Status post TAVR 3. Permanent atrial fibrillation with rapid ventricular response with the GI bleeding 4. CHF with preserved systolic function, improved PLAN: 1. Transfuse as needed 2. Continue oral beta-iggy and amiodarone 3. The patient will need to be evaluated as an outpatient for left atrial appendage closure device 4. Decrease amiodarone tomorrow to 200 mg twice a day 5. Depending on her progress further recommendations will be made 6. Increase physical activity Objective - Vital Signs Vital signs: Vital Signs Temp 96.7 F L 08/08/24 12:00 Pulse 94 08/08/24 12:00 Resp 18 08/08/24 11:00 BP 107/54 08/08/24 12:00 Pulse Ox 99 08/08/24 12:00 FiO2 Intake & Output 08/07/24 08/08/24 08/08/24 18:59 06:59 18:59 Intake Total 1760 240 Output Total 367 450 165 Balance 1393 -210 -165 Weight 93.2 kg Intake: Oral 1450 240 Blood Product 310 Rc As-1 Unit 310 [id number] Output: Urine 367 450 165 Other: Voiding Method Indwelling Catheter Indwelling Catheter Indwelling Catheter - Labs CBC & Chem 7: 08/08/24 04:01 08/08/24 04:01 Labs: Abnormal Lab Results - Last 24 Hours (Table) 08/04/24 08/07/24 08/08/24 Range/Units 21:00 15:19 04:01 WBC 17.6 H 12.2 H (3.8-10.6) k/uL RBC 2.67 L 2.35 L (3.80-5.40) m/uL Hgb 8.6 L D 7.5 L (11.4-16.0) gm/dL Hct 25.5 L 22.4 L (34.0-46.0) % RDW 16.9 H 18.0 H (11.5-15.5) % Plt Count 144 L 134 L (150-450) k/uL Neutrophils # 9.5 H (1.3-7.7) k/uL Sodium (137-145) mmol/L BUN (7-17) mg/dL Calcium (8.4-10.2) mg/dL Crossmatch See Detail 08/08/24 Range/Units 04:01 WBC (3.8-10.6) k/uL RBC (3.80-5.40) m/uL Hgb (11.4-16.0) gm/dL Hct (34.0-46.0) % RDW (11.5-15.5) % Plt Count (150-450) k/uL Neutrophils # (1.3-7.7) k/uL Sodium 130 L (137-145) mmol/L BUN 22 H (7-17) mg/dL Calcium 7.6 L (8.4-10.2) mg/dL Crossmatch
--- NOTE | 2024-08-08 13:36 | P.PN ---
Subjective Progress Note Date: 08/08/24 SURGICAL PROGRESS NOTE CHIEF COMPLAINT: GI bleed HISTORY OF PRESENT ILLNESS: Patient seen in the ICU. Her main complaint is her right arm swelling with a known SVT. She denies any abdominal pain. She r eports feeling hungry. Patient did receive a unit of blood yesterday for hemoglobin of 6.8. Hemoglobin did go up to 8.6 and is now at 7.5. Vitals are stable. PHYSICAL EXAM: VITAL SIGNS: Reviewed. GENERAL: Well-developed in no acute distress. ABDOMEN: Soft. Nondistended. Nontender. NEUROLOGIC: Alert and oriented. Cranial nerves II through XII grossly intact. ASSESSMENT: 1. Upper GI bleed status post EGD with injection and results reporting Justin's ulcer, hiatal hernia, duodenal polyp and gastric polyp 2. Acute blood loss anemia due to GI bleed 3. Atrial fibrillation PLAN: -Advance diet to regular -Continue to monitor hemoglobin -Continue to monitor for any signs or symptoms of bleeding -Continue IV Protonix twice daily Physician Gear Setter note has been reviewed by physician. Signing provider agrees with the documented findings, assessment, and plan of care. Objective - Vital Signs Vital signs: Vital Signs Temp 96.7 F L 08/08/24 12:00 Pulse 94 08/08/24 12:00 Resp 18 08/08/24 11:00 BP 107/54 08/08/24 12:00 Pulse Ox 99 08/08/24 12:00 FiO2 Intake & Output 08/07/24 08/08/24 08/08/24 18:59 06:59 18:59 Intake Total 1760 240 Output Total 367 450 165 Balance 1393 -210 -165 Weight 93.2 kg Intake: Oral 1450 240 Blood Product 310 Rc As-1 Unit 310 [id number] Output: Urine 367 450 165 Other: Voiding Method Indwelling Catheter Indwelling Catheter Indwelling Catheter - Labs CBC & Chem 7: 08/08/24 04:01 08/08/24 04:01 Labs: Abnormal Lab Results - Last 24 Hours (Table) 08/04/24 08/07/24 08/08/24 Range/Units 21:00 15:19 04:01 WBC 17.6 H 12.2 H (3.8-10.6) k/uL RBC 2.67 L 2.35 L (3.80-5.40) m/uL Hgb 8.6 L D 7.5 L (11.4-16.0) gm/dL Hct 25.5 L 22.4 L (34.0-46.0) % RDW 16.9 H 18.0 H (11.5-15.5) % Plt Count 144 L 134 L (150-450) k/uL Neutrophils # 9.5 H (1.3-7.7) k/uL Sodium (137-145) mmol/L BUN (7-17) mg/dL Calcium (8.4-10.2) mg/dL Crossmatch See Detail 08/08/24 Range/Units 04:01 WBC (3.8-10.6) k/uL RBC (3.80-5.40) m/uL Hgb (11.4-16.0) gm/dL Hct (34.0-46.0) % RDW (11.5-15.5) % Plt Count (150-450) k/uL Neutrophils # (1.3-7.7) k/uL Sodium 130 L (137-145) mmol/L BUN 22 H (7-17) mg/dL Calcium 7.6 L (8.4-10.2) mg/dL Crossmatch Assessment and Plan Assessment: blood pressur stable, heart rate decreased, hgb relatively stable. infrequent bloody bowel movements, continue to monitor.
--- NOTE | 2024-08-08 14:12 | P.PN ---
Subjective Progress Note Date: 08/08/24 89-year-old female with past medical history significant for atrial fibrillation maintained on Eliquis, aortic valve replacement (June 2023), and hypertension presents to the emergency department today for difficulty breathing. She states that about 3 weeks ago she noticed an increase in bilateral lower extremity swelling and then over the last week she has had increasing shortness of breath to the point where she has had lightheadedness with walking. She does deny dyspnea at rest. She also reports a 13 pound weight gain over the last 2-1/2 weeks as well as a nonproductive cough over the last week. Additionally over the last 2 weeks she has had orthopnea. Of note, she was recently diagnosed with atrial fibrillation (06/27/2024) and started Eliquis about 3 weeks ago. She reports palpitations with exertion over the last 3 weeks. She denies fever/chills, nausea/vomiting, chest pain. Furthermore, she denied PND. 08/02/24 - Patient seen and examined at bedside. No acute events overnight. Claims that breathing is slightly improved. 08/03/24 - Patient seen and examined at bedside. No acute events overnight. Claims that breathing is slightly improved. 08/04/24 - Patient seen and examined at bedside this morning. She had an echocardiogram completed this morning showed ejection fraction 55 to 60%. Plan is for patient to be discharged tomorrow following recheck of her proBNP per cardiology's request. She has no acute complaints at this time. 08/05/24 - Patient seen and examined at bedside this morning, now in ICU room 257. Overnight and a team was called as the patient was hypotensive and tachycardic with heart rate in the 150s, and she was noted to have multiple episodes of bright red hematemesis. At that time her most recent CBC showed WBCs 9.7, hemoglobin 7.3, platelets 363, PT 13, INR 1.2, previous APTT 22. Most recent CMP showed sodium 135, potassium 3.5, chloride 98, serum bicarb 34, BUN 50, creatinine 0.69, glucose 91. Following transfer to the ICU her hematemesis had stopped however she had been having large maroon stools with clots noted. She received 5 PRBC transfusions overnight and 1 unit cryoprecipitate, general surgery was consulted for an acute GI bleed and they performed EGD which showed Justin lesions of the stomach as well as a large polyp, both of which were injected with epinephrine. She will receive an additional 2 units of PRBCs, 2 units of FFP, and 1 unit of platelets. When seen at bedside this morning, she states that she is feeling pretty well on the whole. 08/06/24 - Patient seen and examined at bedside this morning,remaining in the ICU room 257. Patient's bowel movements are slowing, remaining dark and tarry. She continues to deny any abdominal pain, nausea, vomiting, fevers or chills. She notes having some increased welling of her right upper extremity, with some associated tenderness. 08/07/24 - Patient seen and examined at bedside this morning, remaining in the ICU room 257. No gross bleeding reported overnight. She continues to deny any abdominal pain, nausea, vomiting, fevers or chills. CBC this morning was significant for WBC 16.5, hemoglobin 6.8, hematocrit 20.5, platelet count 146. She is scheduled undergo transfusion with PRBCs this morning secondary to hemoglobin 6.8. Continues to have some tenderness of the right upper extremity, duplex ultrasound was completed yesterday which showed superficial thrombosis of the right cephalic vein. She has no acute complaints at this time, resting comfortably in bed. 08/08/24 - Patient seen and examined at bedside this morning, moved to the third floor from the ICU. Yesterday she continued to have maroon stools. She denies any abdominal pain, nausea, vomiting, fever or chills. CBC this morning significant for WBCs 12.2, hemoglobin 7.5 hematocrit 22.4, platelet 134. BMP showed sodium 130, BUN 22, creatinine 0.76, calcium 7.6. Received 1 unit PRBCs yesterday as a result of her hemoglobin 6.8. Right upper extremity tenderness remains the same has been, worsening pain with movement. She has no acute complaints at this time, resting comfortably. REVIEW OF SYSTEMS: Pertinent positives and negatives noted in HPI. Physical Exam: General: nontoxic, no distress, appears at stated age Derm: warm, dry, intact Head: atraumatic, normocephalic, symmetric Eyes: EOMI, anicteric sclera Mouth: no lip lesion, mucus membranes moist Cardiovascular: S1 S2 reg, no murmur, rubs, or gallops Lungs: Bibasilar rales, no accessory muscle use Abdominal: soft, non-tender to palpataion, no appreciable organomegaly Extremities: Edema, some tenderness to palpation of the right upper extremity Neuro: Alert, Oriented, CNII-XII grossly intact, gait normal Psych: well appearing, appropriate affect Data Received Today: Labs: CBC and BMP significant for WBC 12.2, RBC 2.35, Hg 7.5, Hct 22.4, Plt 134, Na 130, BUN 22, Ca 7.6. Imagining: No new imaging today Assessment and plan 89-year-old female with past medical history significant for atrial fibrillation maintained on Eliquis, aortic valve replacement (June 2023), and hypertension presents to the emergency department today for difficulty breathing. #Acute GI bleed, previously on Eliquis for atrial fibrillation with RVR #Peptic ulcer disease #Acute blood loss anemia, s/p transfusions #Hypocalcemia secondary to blood transfusions -No prior history of GI bleeding -Hemoglobin noted to be 7.5 this morning, CBC -Hypocalcemia secondary to citrate preservative and blood transfusion; continue to monitor BMP -General Surgery consulted for acute GI bleed, EGD performed -Continue to monitor CBC and for signs and symptoms of bleeding -Hold Eliquis -Protonix 40 mg PO BID. #Acute CHF exacerbation #Atrial fibrillation with RVR #History of aortic stenosis status post TAVR #Hypertension #Contraction alkalosis, resolved -Cardiology following -Echocardiogram showed EF 55 to 60% -Switched to oral amiodarone 400 mg twice daily -Metoprolol decreased to 50 mg 3 times daily -EKG (08/07/2024) independently interpreted showed she remained in atrial fibrillation with RVR, with a rate of 119 -Farxiga 10 mg daily -Rechecked proBNP 1820 -Continue to monitor BMP #Superficial thrombosis of the right cephalic vein -Venous Doppler ultrasound of the right upper extremity showed no evidence for DVT, superficial thrombosis of the right cephalic vein -Continue supportive care for now -Continue to monitor for any acute changes #Hyponatremia -Sodium 130 this morning -Continue to monitor BMP #Transaminitis, improving -Likely congestive hepatopathy -Continue to monitor DVT ppx: Eliquis on hold GI PPx: Protonix 40 mg twice daily Code status: Full code F: None E: Replete as needed N: Regular diet A: Ambulatory Anticipated discharge place: Home Anticipated discharge time: Pending clinical course Dictation was produced using [employer] dictation software. please excuse any grammatical, word or spelling errors. I have seen and evaluated the patient today. Discussed with the resident and agree with the residents finding and plan as documented in the resident's note. Changes highlighted in blue font. Objective - Vital Signs Vital signs: Vital Signs Temp 97.4 F L 08/08/24 08:00 Pulse 118 H 08/08/24 08:00 Resp 19 08/08/24 08:00 BP 103/53 08/08/24 08:00 Pulse Ox 94 L 08/08/24 08:00 FiO2 Intake & Output 08/07/24 08/08/24 08/08/24 18:59 06:59 18:59 Intake Total 1760 240 Output Total 367 450 30 Balance 1393 -210 -30 Weight 93.2 kg Intake: Oral 1450 240 Blood Product 310 Rc As-1 Unit 310 [id number] Output: Urine 367 450 30 Other: Voiding Method Indwelling Catheter Indwelling Catheter - Labs CBC & Chem 7: 08/08/24 04:01 08/08/24 04:01 Labs: Abnormal Lab Results - Last 24 Hours (Table) 08/04/24 08/07/24 08/08/24 Range/Units 21:00 15:19 04:01 WBC 17.6 H 12.2 H (3.8-10.6) k/uL RBC 2.67 L 2.35 L (3.80-5.40) m/uL Hgb 8.6 L D 7.5 L (11.4-16.0) gm/dL Hct 25.5 L 22.4 L (34.0-46.0) % RDW 16.9 H 18.0 H (11.5-15.5) % Plt Count 144 L 134 L (150-450) k/uL Neutrophils # 9.5 H (1.3-7.7) k/uL Sodium (137-145) mmol/L BUN (7-17) mg/dL Calcium (8.4-10.2) mg/dL Crossmatch See Detail 08/08/24 Range/Units 04:01 WBC (3.8-10.6) k/uL RBC (3.80-5.40) m/uL Hgb (11.4-16.0) gm/dL Hct (34.0-46.0) % RDW (11.5-15.5) % Plt Count (150-450) k/uL Neutrophils # (1.3-7.7) k/uL Sodium 130 L (137-145) mmol/L BUN 22 H (7-17) mg/dL Calcium 7.6 L (8.4-10.2) mg/dL Crossmatch
--- NOTE | 2024-08-08 14:44 | P.PN ---
Subjective Progress Note Date: 08/08/24 Patient is an 89-year-old female with past medical history significant for hypertension, severe aortic stenosis with previous TAVR performed June 2023 at [facility], atrial fibrillation anticoagulated on Eliquis. Presented the emergency department back on 08/01/2024 with a chief complaint of shortness of breath. Found to be in atrial fibrillation with rapid ventricular response. Initially, started on Cardizem infusion. Note that she is anticoagulated on Eliquis. Echocardiogram done this admission Left ventricular ejection fraction estimated at 55 to 60%, bioprosthetic aortic valve with mean gradient of 16 mmHg and mild perivalvular regurgitation, mild to moderate MR, moderate pulmonary hypertension, and severe tricuspid regurgitation. Chest x- ray done admission showing cardiomegaly with small bilateral pleural effusions. Patient was admitted to the cardiac stepdown unit. A rapid response was called around 20:18 last night. She was noted to be hypotensive and tachycardic with a heart rate in the 150s. She was having multiple episodes of bright red hematemesis. Most recent CBC: WBC count 9.7, hemoglobin 7.3, platelets 363. PT 13, INR 1.2, previous APTT 22. Most recent available CMP: Sodium 135, potassium 3.5, chloride 98, serum bicarb 34, BUN 50, creatinine 0.69, glucose 91. LFTs not elevated. NT proBNP 1930. Troponin less than 0.012 x 1. Patient currently being evaluated in room 257. Alert and oriented. Generating pale. hematemesis subsided, however, is now having large john stools. Approximately 6 or 7 episodes so far, with clots. Heart rate remains tachycardic around 110 bpm. Blood pressure also hypotensive and is most recently 75/59 mmHg. General surgery was consulted. Patient was transferred to the intensive care unit. 2 units PRBCs were ordered. Patient is going to be given a dose of Kcentra. Patient denies history of GI bleeding. Most recent screening colonoscopy from 2018. Denies NSAID use. Has been taking Eliquis as reported above, and this is obviously on hold. Previously started on amiodarone with IV bolus and continues on amiodarone at 1 mg/min. Two additional liters of normal saline fluid bolus ordered. Overnight, the patient was being monitored closely and the most recent hemoglobin it was measured on this patient from this morning was at 10.2. Noted the patient underwent an EGD today and the patient was found to have a ulcer within the hiatal hernia. Epinephrine injection was done. After arrival back to the intensive care unit, the patient had another melanotic stools. In addition to units of packed RBC was ordered by general surgery. In summary, the patient has received a total of 5 units of packed RBC, she will be given an 2 additional units of fresh frozen plasma and 1 unit of cryoprecipitate. At the same time, the patient remains in atrial fibrillation with RVR. The patient is currently on amiodarone drip. Blood pressure is well-maintained. No significant hypotension at this point in time. She is awake and alert. She is NPO. On 08/06/2024, the patient is being seen in follow-up regarding her ongoing GI bleeding. Noted overnight, the patient had 3 bowel movements most recent of which was around 830 this morning and this was described to be bloody. There has been ongoing steady drop in hemoglobin and the most recent hemoglobin is done to 7.2. The patient is on clear liquid diet. The patient remains on IV Protonix. Receiving 4 mg of IV Protonix twice a day. No nausea. No emesis. No abdominal pain. She has received a total of 7 units of RBC, 1 unit of platel et and 2 units of fresh frozen plasma. The patient remains on amiodarone drip at 0.5 mg/min and the patient remains on metoprolol 50 mg p.o. twice a day. She remains on IV fluids and currently the IV fluids are at KVO. She is awake and alert and communicating. No significant complaints. General surgery remains on the case. On today's evaluation of 08/07/2024, the patient is not having any active GI bleeding. The patient had a smear of bright blood yesterday evening. Nevertheless, no significant melanotic stools. Abdominal pain. No nausea or emesis. No chest pain. Follow-up hemoglobin from today is at 6.8 and the patient will be given packed RBC x 1 bringing the total number of packed RBC that the patient has received during this current admission up to 8 units. Otherwise, she is doing well. She is stable. She is on full liquid diet. She remains on oxygen 2 L/min nasal cannula. IV fluids are currently at KVO. Rest of the blood work shows a WBC count of 17.6, hemoglobin 8.6 and a platelet count of 144. BUN 31 with a creatinine of 0.7. Sodium levels at 133. The patient's blood pressure remains soft. There is no significant hypotension. The amiodarone is at 400 mg p.o. twice a day and the patient is also on metoprolol 50 mg p.o. 3 times daily. Denies having any other specific complaints for now. On 08/08/2024, the patient is not showing any ongoing signs of GI bleeding. Hemodynamically stable. Blood pressure is stable although she runs a lower blood pressure at baseline. She remains in atrial fibrillation with a controlled rate. Most recent hemoglobin is at 7.5. She is taking full liquid diet and she wants to advance. No other complaints otherwise for now. The patient has no nausea. No emesis. No chest pain. No other significant events over the past 24 hours. Blood work from today shows a white cell count of 12.2 with a heme of 7.5 with a platelet count of 134. The rest of the blood work shows a sodium level of 130, potassium is at 4, BUN 22 with a creatinine of 0.7. Objective - Vital Signs Vital signs: Vital Signs Temp 97.4 F L 08/08/24 08:00 Pulse 77 08/08/24 10:00 Resp 20 08/08/24 10:00 BP 96/61 08/08/24 10:00 Pulse Ox 95 08/08/24 10:00 FiO2 Intake & Output 08/07/24 08/08/24 08/08/24 18:59 06:59 18:59 Intake Total 1760 240 Output Total 367 450 135 Balance 1393 -210 -135 Weight 93.2 kg Intake: Oral 1450 240 Blood Product 310 Rc As-1 Unit 310 [id number] Output: Urine 367 450 135 Other: Voiding Method Indwelling Catheter Indwelling Catheter Indwelling Catheter - Exam GENERAL EXAM: Alert, 89-year-old white female, generalized pallor, frequent large maroon stools, currently on 2 L of oxygen by nasal cannula HEAD: Normocephalic and atraumatic EYES: Normal reaction of pupils, equal size. NOSE: Clear with pink turbinates. THROAT: No erythema or exudates. NECK: No masses, no JVD. CHEST: No chest wall deformity. LUNGS: Equal air entry with no crackles, wheeze, rhonchi or dullness. On 2 L/min nasal cannula. No conversational dyspnea or accessory muscle use.. CVS: S1 and S2 normal with soft grade 1 systolic murmur murmur, irregular rhythm. No extra heart sounds, the patient remains tachycardic ABDOMEN: Abdomen flat and soft, hyperactive bowel sounds, no hepatosplenomegaly, no guarding or rigidity. SPINE: No scoliosis or deformity SKIN: No rashes CENTRAL NERVOUS SYSTEM: No focal deficits, tone is normal in all 4 extremities. EXTREMITIES: There is no peripheral edema, clubbing, or cyanosis. Peripheral pulses are intact. - Labs CBC & Chem 7: 08/08/24 04:01 08/08/24 04:01 Labs: Abnormal Lab Results - Last 24 Hours (Table) 08/04/24 08/07/24 08/08/24 Range/Units 21:00 15:19 04:01 WBC 17.6 H 12.2 H (3.8-10.6) k/uL RBC 2.67 L 2.35 L (3.80-5.40) m/uL Hgb 8.6 L D 7.5 L (11.4-16.0) gm/dL Hct 25.5 L 22.4 L (34.0-46.0) % RDW 16.9 H 18.0 H (11.5-15.5) % Plt Count 144 L 134 L (150-450) k/uL Neutrophils # 9.5 H (1.3-7.7) k/uL Sodium (137-145) mmol/L BUN (7-17) mg/dL Calcium (8.4-10.2) mg/dL Crossmatch See Detail 08/08/24 Range/Units 04:01 WBC (3.8-10.6) k/uL RBC (3.80-5.40) m/uL Hgb (11.4-16.0) gm/dL Hct (34.0-46.0) % RDW (11.5-15.5) % Plt Count (150-450) k/uL Neutrophils # (1.3-7.7) k/uL Sodium 130 L (137-145) mmol/L BUN 22 H (7-17) mg/dL Calcium 7.6 L (8.4-10.2) mg/dL Crossmatch Assessment and Plan Plan: Acute upper GI bleed, secondary to Justin's ulcer. The patient also has a gastric polyp and a hiatal hernia. The patient was given Eliquis reversal with Kcentra. The patient received a total of 8 days of packed RBC, 1 unit of platelet, 2 units of fresh frozen plasma and the patient remains on IV Protonix. Currently she is on clear liquid diet. The most recent hemoglobin is 7.8. No active bleeding. Acute blood loss anemia secondary to massive upper GI bleeding. Hemoglobin is stable Hypotension/hypovolemia, secondary to above, currently hemodynamically stable. Not requiring pressors Atrial fibrillation with rapid ventricular response, with better rate control, patient is currently on p.o. amiodarone and metoprolol Acute diastolic congestive heart failure, stable Acute hypoxemic respiratory failure, currently on 2 L/min nasal cannula History of severe aortic stenosis status post TAVR at outside facility June,; echocardiogram done this admission estimates a left ventricular ejection f raction of 55 to 60%, bioprosthetic aortic valve with mean gradient of 16 mmHg and mild perivalvular regurgitation, mild to moderate MR, moderate pulmonary hypertension, and severe tricuspid regurgitation. History of hypertension History of breast cancer with previous right lumpectomy Plan: Hemodynamically stable. No evidence of any ongoing GI bleeding. Keep anticoagulation on hold Monitor hemoglobin Advance diet to soft IV Protonix EGD was performed and epinephrine was injected into the Justin's ulcer Continue oral amiodarone 400 mg p.o. twice a day Continue metoprolol 50 mg p.o. twice a day Continue serial H&H rechecks; General Surgery is on the case Patient's condition currently critical Will continue to follow and transfer the patient out of the intensive care unit.
[2024-08-08] MEDS: PANTOPRAZOLE 40 MG TABLET PO SCH (17:33)
[2024-08-09 07:31] LABS: Anisocytosis Slight; Basophils % (A) 0 %; Eosinophils # (A) 0.2 k/uL (0-0.7); Eosinophils % (A) 2 %; HCT 24.8 % (34.0-46.0); HGB 8.1 gm/dL (11.4-16.0); Hypochromasia Moderate; Lymphocytes # (A) 1.5 k/uL (1.0-4.8); Lymphocytes % (A) 14 %; MCH 31.5 pg (25.0-35.0); MCHC 32.5 g/dL (31.0-37.0); MCV 96.8 fL (80.0-100.0); Macrocytosis Slight; Monocytes # (A) 0.9 k/uL (0-1.0); Monocytes % (A) 8 %; Neutrophils % (A) 75 %; Platelet Count 174 k/uL (150-450); Poikilocytosis Slight; RBC 2.56 m/uL (3.80-5.40); RDW 16.5 % (11.5-15.5); WBC 10.7 k/uL (3.8-10.6)
[2024-08-09 07:45] LABS: African American GFR (CKD) 86 (>60 ml/min/1.73 sqM); Anion Gap 4 mmol/L; Blood Urea Nitrogen 19 mg/dL (7-17); Calcium 7.8 mg/dL (8.4-10.2); Carbon Dioxide 26 mmol/L (22-30); Chloride 100 mmol/L (98-107); Glucose 102 mg/dL (74-99); Non-African American GFR(CKD) 75 (>60 ml/min/1.73 sqM); Potassium 3.8 mmol/L (3.5-5.1); Sodium 130 mmol/L (137-145)
[2024-08-09] MEDS: AMIODARONE 200 MG TAB PO SCH (08:40)
[2024-08-09] MEDS: FUROSEMIDE 10 MG/ML 4 ML VIAL IV STA (10:22)
--- NOTE | 2024-08-09 11:05 | P.PN ---
Subjective Progress Note Date: 08/09/24 89-year-old female with past medical history significant for atrial fibrillation maintained on Eliquis, aortic valve replacement (June 2023), and hypertension presents to the emergency department today for difficulty breathing. She states that about 3 weeks ago she noticed an increase in bilateral lower extremity swelling and then over the last week she has had increasing shortness of breath to the point where she has had lightheadedness with walking. She does deny dyspnea at rest. She also reports a 13 pound weight gain over the last 2-1/2 weeks as well as a nonproductive cough over the last week. Additionally over the last 2 weeks she has had orthopnea. Of note, she was recently diagnosed with atrial fibrillation (06/27/2024) and started Eliquis about 3 weeks ago. She reports palpitations with exertion over the last 3 weeks. She denies fever/chills, nausea/vomiting, chest pain. Furthermore, she denied PND. 08/02/24 - Patient seen and examined at bedside. No acute events overnight. Claims that breathing is slightly improved. 08/03/24 - Patient seen and examined at bedside. No acute events overnight. Claims that breathing is slightly improved. 08/04/24 - Patient seen and examined at bedside this morning. She had an echocardiogram completed this morning showed ejection fraction 55 to 60%. Plan is for patient to be discharged tomorrow following recheck of her proBNP per cardiology's request. She has no acute complaints at this time. 08/05/24 - Patient seen and examined at bedside this morning, now in ICU room 257. Overnight and a team was called as the patient was hypotensive and tachycardic with heart rate in the 150s, and she was noted to have multiple episodes of bright red hematemesis. At that time her most recent CBC showed WBCs 9.7, hemoglobin 7.3, platelets 363, PT 13, INR 1.2, previous APTT 22. Most recent CMP showed sodium 135, potassium 3.5, chloride 98, serum bicarb 34, BUN 50, creatinine 0.69, glucose 91. Following transfer to the ICU her hematemesis had stopped however she had been having large maroon stools with clots noted. She received 5 PRBC transfusions overnight and 1 unit cryoprecipitate, general surgery was consulted for an acute GI bleed and they performed EGD which showed Justin lesions of the stomach as well as a large polyp, both of which were injected with epinephrine. She will receive an additional 2 units of PRBCs, 2 units of FFP, and 1 unit of platelets. When seen at bedside this morning, she states that she is feeling pretty well on the whole. 08/06/24 - Patient seen and examined at bedside this morning,remaining in the ICU room 257. Patient's bowel movements are slowing, remaining dark and tarry. She continues to deny any abdominal pain, nausea, vomiting, fevers or chills. She notes having some increased welling of her right upper extremity, with some associated tenderness. 08/07/24 - Patient seen and examined at bedside this morning, remaining in the ICU room 257. No gross bleeding reported overnight. She continues to deny any abdominal pain, nausea, vomiting, fevers or chills. CBC this morning was significant for WBC 16.5, hemoglobin 6.8, hematocrit 20.5, platelet count 146. She is scheduled undergo transfusion with PRBCs this morning secondary to hemoglobin 6.8. Continues to have some tenderness of the right upper extremity, duplex ultrasound was completed yesterday which showed superficial thrombosis of the right cephalic vein. She has no acute complaints at this time, resting comfortably in bed. 08/08/24 - Patient seen and examined at bedside this morning, moved to the third floor from the ICU. Yesterday she continued to have maroon stools. She denies any abdominal pain, nausea, vomiting, fever or chills. CBC this morning significant for WBCs 12.2, hemoglobin 7.5 hematocrit 22.4, platelet 134. BMP showed sodium 130, BUN 22, creatinine 0.76, calcium 7.6. Received 1 unit PRBCs yesterday as a result of her hemoglobin 6.8. Right upper extremity tenderness remains the same has been, worsening pain with movement. She has no acute complaints at this time, resting comfortably. 08/09/24 - Patient seen and examined at bedside this morning, remaining of third floor. She has had no notable bloody stools or active bleeding. She denies any abdominal pain, nausea, vomiting, fever or chills. CBC this morning showed WBC 10.7, hemoglobin 8.1. Right upper extremity tenderness remains the same, possibly slightly worse than yesterday. Continues to have swelling and noted tightness of the medial forearm. Resting comfortably in her chair. Other than continued right upper extremity discomfort, she has no acute complaints this time. REVIEW OF SYSTEMS: Pertinent positives and negatives noted in HPI. Physical Exam: General: nontoxic, no distress, appears at stated age Derm: warm, dry, intact Head: atraumatic, normocephalic, symmetric Eyes: EOMI, anicteric sclera Mouth: no lip lesion, mucus membranes moist Cardiovascular: S1 S2 reg, no murmur, rubs, or gallops Lungs: Bibasilar rales, no accessory muscle use Abdominal: soft, non-tender to palpataion, no appreciable organomegaly Extremities: Edema, tightness and tenderness enderness to palpation of the right upper extremity Neuro: Alert, Oriented, CNII-XII grossly intact, gait normal Psych: well appearing, appropriate affect Data Received Today: Labs: WBCs 10.7, hemoglobin 8.1, hematocrit 24.8, platelet 170: Sodium 130, potassium 3.8, BUN 19, creatinine 0.73, calcium 7.8 Imagining: Right upper extremity venous Doppler ultrasound ordered, currently pending at time of dictation Assessment and plan 89-year-old female with past medical history significant for atrial fibrillation maintained on Eliquis, aortic valve replacement (June 2023), and hypertension presents to the emergency department today for difficulty breathing. #Acute GI bleed, previously on Eliquis for atrial fibrillation with RVR #Peptic ulcer disease #Acute blood loss anemia, s/p transfusions #Hypocalcemia secondary to blood transfusions -No prior history of GI bleeding -Hemoglobin noted to be 8.1 this morning, CBC -Hypocalcemia secondary to citrate preservative and blood transfusion; continue to monitor BMP -General Surgery consulted for acute GI bleed, EGD performed -Continue to monitor CBC and for signs and symptoms of bleeding -Hold Eliquis #Acute CHF exacerbation #Atrial fibrillation with RVR #History of aortic stenosis status post TAVR #Hypertension #Contraction alkalosis, resolved -Cardiology following -Echocardiogram showed EF 55 to 60% -Amiodarone decreased to 200 mg twice daily per cardiology's request -Metoprolol decreased to 50 mg 3 times daily -Farxiga 10 mg daily -Continue to monitor BMP #Superficial thrombosis of the right cephalic vein -Venous Doppler ultrasound of the right upper extremity showed no evidence for DVT, superficial thrombosis of the right cephalic vein -Continue supportive care for now -Continued/worsening pain of right upper extremity, repeat venous Doppler ultrasound ordered today (08/09/2024) #Hyponatremia -Sodium 130 this morning -Continue to monitor BMP #Transaminitis, improving -Likely congestive hepatopathy -Continue to monitor DVT ppx: Eliquis on hold GI PPx: Protonix 40 mg twice daily Code status: Full code F: None E: Replete as needed N: Regular diet A: Ambulatory Anticipated discharge place: Home Anticipated discharge time: 1-2 days Dictation was produced using [employer] dictation software. please excuse any grammatical, word or spelling errors. I have seen and evaluated the patient today. Discussed with the resident and agree with the residents finding and plan as documented in the resident's note. Changes highlighted in blue font. Worsening superficial thrombosis of the right cephalic vein. Vascular surgery consulted. Objective - Vital Signs Vital signs: Vital Signs Temp 97.9 F 08/09/24 03:09 Pulse 94 08/09/24 03:09 Resp 22 08/09/24 03:09 BP 112/74 08/09/24 03:09 Pulse Ox 96 08/09/24 03:09 FiO2 Intake & Output 08/08/24 08/09/24 08/09/24 18:59 06:59 18:59 Intake Total 480 Output Total 165 100 Balance 315 -100 Weight 76.9 kg Intake: Oral 480 Output: Urine 165 100 Other: Voiding Method Indwelling Catheter Toilet - Labs CBC & Chem 7: 08/09/24 07:15 08/09/24 07:15 Labs: Abnormal Lab Results - Last 24 Hours (Table) 08/09/24 Range/Units 07:15 WBC 10.7 H (3.8-10.6) k/uL RBC 2.56 L (3.80-5.40) m/uL Hgb 8.1 L (11.4-16.0) gm/dL Hct 24.8 L (34.0-46.0) % RDW 16.5 H (11.5-15.5) % Neutrophils # 8.0 H (1.3-7.7) k/uL
--- NOTE | 2024-08-09 11:31 | US ---
EXAMINATION TYPE: US venous doppler duplex UE RT DATE OF EXAM: 08/09/2024 COMPARISON: US 08/06/24 CLINICAL INDICATION: Female, 89 years old with history of follow up right arm swelling/discomfort; Sw elling and discomfort. Cephalic thrombus seen on prior. TECHNIQUE: Grayscale, color Doppler and spectral Doppler imaging of the upper extremity. SIDE PERFORMED: Right VESSELS IMAGED: IJV Subclavian Vein Axilla Vein Brachial Vein(s) Radial Paired Veins Ulnar Paired Veins Cephalic Vein* Basilic Vein* (*superficial vessels) FINDINGS: Right Arm: No evidence of DVT. Internal extensive superficial thrombus again seen in cephalic vein from upper arm near shoulder do wn through entire arm. Some of the cephalic vein appears patent and compressible near its origin. Exam is again limited due to edema. *Probable high bifurcation of brachial veins into ulnar and radi al veins. They appear to be separate at the mid bicep level. Difficult to determine exactly where bif urcation begins. *Hypoechoic area seen right neck: 1.6 x 1.4 x 0.9 cm. Grayscale, color doppler, spectral doppler imaging performed of the deep veins of the upper extremiti es. IMPRESSION: 1. No deep venous thrombosis right upper extremity. 2. Fairly extensive superficial venous thrombosis within the cephalic vein extending through the arm [facility], , 08/09/2024 11:29 AM
--- NOTE | 2024-08-09 13:09 | P.PN ---
Subjective HISTORY OF PRESENT ILLNESS: Patient is a 89-year-old female with past medical history of severe aortic stenosis status post aortic valve replacement done at [facility] by Dr. Jamison Nice in June 2023. She also has history of hypertension. Patient reports that in June 2024 she was told that she had atrial fibrillation when she was following up with Dr. Hilton Nice. For this she was started on beta-iggy but patient stopped taking it because it made her sick. This time she presented to the hospital because of increased worsening shortness of breath, lower extremity edema and 13 pound weight gain in 2-1/2 weeks. She was also having increased cough. On admission her vitals showed BP 127/79, heart rate 114 bpm, oxygen saturation 91% on 2 L oxygen. Her admission labs showed hemoglobin of 10.8, BUN of 18, creatinine of 0.7, minimal transaminitis, troponin was negative, NT-proBNP 2000, TSH of 2.0. Progress note 08/03/2024 Patient seen and examined at bedside this a.m. Patient reports that her shortness of breath has improved. She is in atrial fibrillation on telemetry which is rate controlled with average heart rate around 80 bpm. 08/04/2024 Patient examined this morning at the bedside. Patient reports improvement in her shortness of breath. She currently denies chest pain or pressure. Bedside telemetry reveals atrial fibrillation with a heart rate between [id number]. Echocardiogram completed revealing ejection fraction 55 to 60%, no obvious regional wall motion abnormalities, mild to moderate mitral regurgitation, normally functioning CASSI bioprosthetic aortic valve with peak gradient 24 mmHg and mean gradient 16 mmHg, no perivalvular aortic regurgitation, severe tricuspid regurgitation. August 06: The patient continues to have GI bleeding although improved. She denies any chest discomfort. She feels tired. She continues to be in atrial fibrillation with rapid ventricle response. Her breathing is unchanged. She has no further vomiting. Her blood pressure has been stable and her urinary output has been stable. She continues to be on IV amiodarone. Chest x-ray shows no acute infiltrate. Her last hemoglobin is 8.2. August 07: The patient feels tired today, has some dyspnea. She continues to be in atrial fibrillation with controlled ventricular response. She has a drop in the hemoglobin and she is scheduled to undergo transfusion today. She had no gross bleeding overnight. She has no nausea or vomiting. Hemodynamically she is stable. She is tolerating p.o. August 08: The patient continues to be in atrial fibrillation with controlled ventricular response. She underwent transfusion yesterday. She is complaining of right arm discomfort with movement. She denies any dizziness or palpitations. She has no significant recurrent bleeding. She is tolerating p.o. She continues to feel fatigued. 08/09/2024 Patient examined this morning at the bedside. Patient denies any chest pain or pressure. She denies shortness of breath. She continues to report pain in her right arm. She states that she feels weak and tired this morning. Telemetry reveals atrial fibrillation with a heart rate in the 80s. PHYSICAL EXAM: VITAL SIGNS: Reviewed. GENERAL: Well-developed in no acute distress. NECK: Supple. No JVD or thyromegaly LUNGS: Respirations even and unlabored. Lungs essentially clear to auscultation bilaterally. HEART: Irregular rate and rhythm. S1 and S2 heard. EXTREMITIES: Normal range of motion. No clubbing or cyanosis. Peripheral pulse s intact. Trace bilateral lower extremity edema ASSESSMENT: Shortness of breath Acute GI bleed Acute on chronic heart failure with preserved EF, 55 to 60% Permanent atrial fibrillation with RVR History of aortic stenosis status post TAVR, 06/2023 at [facility] Hypertension PLAN: Continue current cardiac medications Oral amiodarone decreased to 200 mg twice a day Give 1 dose of IV Lasix 40 mg Continue telemetry monitoring Further recommendations pending patient course Continue to hold anticoagulation. Patient will need to be evaluated on an outpatient basis for left atrial appendage closure device Patient to follow-up postdischarge with Dr. Stephen Nurse practitioner note has been reviewed by physician. Signing provider agrees with the documented findings, assessment, and plan of care documented by [employer]END[employer] as a scribe. Objective - Vital Signs Vital signs: Vital Signs Temp 98.3 F 08/09/24 11:43 Pulse 87 08/09/24 11:43 Resp 18 08/09/24 11:43 BP 101/58 08/09/24 11:43 Pulse Ox 95 08/09/24 11:43 FiO2 Intake & Output 08/08/24 08/09/24 08/09/24 18:59 06:59 18:59 Intake Total 480 500 Output Total 165 100 700 Balance 315 -100 -200 Weight 76.9 kg Intake: IV 20 Invasive Line 4 10 Invasive Line 5 10 Oral 480 480 Output: Urine 165 100 700 Other: Voiding Method Indwelling Catheter Toilet Toilet - Labs CBC & Chem 7: 08/09/24 07:15 08/09/24 07:15 Labs: Abnormal Lab Results - Last 24 Hours (Table) 08/09/24 08/09/24 Range/Units 07:15 07:15 WBC 10.7 H (3.8-10.6) k/uL RBC 2.56 L (3.80-5.40) m/uL Hgb 8.1 L (11.4-16.0) gm/dL Hct 24.8 L (34.0-46.0) % RDW 16.5 H (11.5-15.5) % Neutrophils # 8.0 H (1.3-7.7) k/uL Sodium 130 L (137-145) mmol/L BUN 19 H (7-17) mg/dL Glucose 102 H (74-99) mg/dL Calcium 7.8 L (8.4-10.2) mg/dL
--- NOTE | 2024-08-09 14:12 | P.PN ---
Subjective Progress Note Date: 08/09/24 Patient is an 89-year-old female with past medical history significant for hypertension, severe aortic stenosis with previous TAVR performed June 2023 at [facility], atrial fibrillation anticoagulated on Eliquis. Presented the emergency department back on 08/01/2024 with a chief complaint of shortness of breath. Found to be in atrial fibrillation with rapid ventricular response. Initially, started on Cardizem infusion. Note that she is anticoagulated on Eliquis. Echocardiogram done this admission Left ventricular ejection fraction estimated at 55 to 60%, bioprosthetic aortic valve with mean gradient of 16 mmHg and mild perivalvular regurgitation, mild to moderate MR, moderate pulmonary hypertension, and severe tricuspid regurgitation. Chest x- ray done admission showing cardiomegaly with small bilateral pleural effusions. Patient was admitted to the cardiac stepdown unit. A rapid response was called around 20:18 last night. She was noted to be hypotensive and tachycardic with a heart rate in the 150s. She was having multiple episodes of bright red hematemesis. Most recent CBC: WBC count 9.7, hemoglobin 7.3, platelets 363. PT 13, INR 1.2, previous APTT 22. Most recent available CMP: Sodium 135, potassium 3.5, chloride 98, serum bicarb 34, BUN 50, creatinine 0.69, glucose 91. LFTs not elevated. NT proBNP 1930. Troponin less than 0.012 x 1. Patient currently being evaluated in room 257. Alert and oriented. Generating pale. hematemesis subsided, however, is now having large john stools. Approximately 6 or 7 episodes so far, with clots. Heart rate remains tachycardic around 110 bpm. Blood pressure also hypotensive and is most recently 75/59 mmHg. General surgery was consulted. Patient was transferred to the intensive care unit. 2 units PRBCs were ordered. Patient is going to be given a dose of Kcentra. Patient denies history of GI bleeding. Most recent screening colonoscopy from 2018. Denies NSAID use. Has been taking Eliquis as reported above, and this is obviously on hold. Previously started on amiodarone with IV bolus and continues on amiodarone at 1 mg/min. Two additional liters of normal saline fluid bolus ordered. Overnight, the patient was being monitored closely and the most recent hemoglobin it was measured on this patient from this morning was at 10.2. Noted the patient underwent an EGD today and the patient was found to have a ulcer within the hiatal hernia. Epinephrine injection was done. After arrival back to the intensive care unit, the patient had another melanotic stools. In addition to units of packed RBC was ordered by general surgery. In summary, the patient has received a total of 5 units of packed RBC, she will be given an 2 additional units of fresh frozen plasma and 1 unit of cryoprecipitate. At the same time, the patient remains in atrial fibrillation with RVR. The patient is currently on amiodarone drip. Blood pressure is well-maintained. No significant hypotension at this point in time. She is awake and alert. She is NPO. On 08/06/2024, the patient is being seen in follow-up regarding her ongoing GI bleeding. Noted overnight, the patient had 3 bowel movements most recent of which was around 830 this morning and this was described to be bloody. There has been ongoing steady drop in hemoglobin and the most recent hemoglobin is done to 7.2. The patient is on clear liquid diet. The patient remains on IV Protonix. Receiving 4 mg of IV Protonix twice a day. No nausea. No emesis. No abdominal pain. She has received a total of 7 units of RBC, 1 unit of platel et and 2 units of fresh frozen plasma. The patient remains on amiodarone drip at 0.5 mg/min and the patient remains on metoprolol 50 mg p.o. twice a day. She remains on IV fluids and currently the IV fluids are at KVO. She is awake and alert and communicating. No significant complaints. General surgery remains on the case. On today's evaluation of 08/07/2024, the patient is not having any active GI bleeding. The patient had a smear of bright blood yesterday evening. Nevertheless, no significant melanotic stools. Abdominal pain. No nausea or emesis. No chest pain. Follow-up hemoglobin from today is at 6.8 and the patient will be given packed RBC x 1 bringing the total number of packed RBC that the patient has received during this current admission up to 8 units. Otherwise, she is doing well. She is stable. She is on full liquid diet. She remains on oxygen 2 L/min nasal cannula. IV fluids are currently at KVO. Rest of the blood work shows a WBC count of 17.6, hemoglobin 8.6 and a platelet count of 144. BUN 31 with a creatinine of 0.7. Sodium levels at 133. The patient's blood pressure remains soft. There is no significant hypotension. The amiodarone is at 400 mg p.o. twice a day and the patient is also on metoprolol 50 mg p.o. 3 times daily. Denies having any other specific complaints for now. On 08/08/2024, the patient is not showing any ongoing signs of GI bleeding. Hemodynamically stable. Blood pressure is stable although she runs a lower blood pressure at baseline. She remains in atrial fibrillation with a controlled rate. Most recent hemoglobin is at 7.5. She is taking full liquid diet and she wants to advance. No other complaints otherwise for now. The patient has no nausea. No emesis. No chest pain. No other significant events over the past 24 hours. Blood work from today shows a white cell count of 12.2 with a heme of 7.5 with a platelet count of 134. The rest of the blood work shows a sodium level of 130, potassium is at 4, BUN 22 with a creatinine of 0.7. On 08/09/2024, no evidence of any GI bleeding and the patient's hemoglobin remained stable at 8.1. The patient is calm and comfortable. Denies having any specific complaints. No evidence of any GI bleeding. Denies vomiting or abdominal pain. No abdominal tenderness. Resting comfortably in a chair. Remains in atrial fibrillation. No anticoagulants for now. Remains on amiodarone and metoprolol. Hemodynamically stable. General surgery is on the case. Objective - Vital Signs Vital signs: Vital Signs Temp 98.0 F 08/09/24 08:32 Pulse 106 H 08/09/24 08:32 Resp 16 08/09/24 08:32 BP 110/67 08/09/24 08:32 Pulse Ox 95 08/09/24 08:32 FiO2 Intake & Output 08/08/24 08/09/24 08/09/24 18:59 06:59 18:59 Intake Total 480 260 Output Total 165 100 300 Balance 315 -100 -40 Weight 76.9 kg Intake: IV 20 Invasive Line 4 10 Invasive Line 5 10 Oral 480 240 Output: Urine 165 100 300 Other: Voiding Method Indwelling Catheter Toilet Toilet - Exam GENERAL EXAM: Alert, 89-year-old white female, generalized pallor, frequent large maroon stools, currently on 2 L of oxygen by nasal cannula HEAD: Normocephalic and atraumatic EYES: Normal reaction of pupils, equal size. NOSE: Clear with pink turbinates. THROAT: No erythema or exudates. NECK: No masses, no JVD. CHEST: No chest wall deformity. LUNGS: Equal air entry with no crackles, wheeze, rhonchi or dullness. On 2 L/min nasal cannula. No conversational dyspnea or accessory muscle use.. CVS: S1 and S2 normal with soft grade 1 systolic murmur murmur, irregular rhythm. No extra heart sounds, the patient remains tachycardic ABDOMEN: Abdomen flat and soft, hyperactive bowel sounds, no hepatosplenomegaly, no guarding or rigidity. SPINE: No scoliosis or deformity SKIN: No rashes CENTRAL NERVOUS SYSTEM: No focal deficits, tone is normal in all 4 extremities. EXTREMITIES: There is no peripheral edema, clubbing, or cyanosis. Peripheral pulses are intact. - Labs CBC & Chem 7: 08/09/24 07:15 08/09/24 07:15 Labs: Abnormal Lab Results - Last 24 Hours (Table) 08/09/24 08/09/24 Range/Units 07:15 07:15 WBC 10.7 H (3.8-10.6) k/uL RBC 2.56 L (3.80-5.40) m/uL Hgb 8.1 L (11.4-16.0) gm/dL Hct 24.8 L (34.0-46.0) % RDW 16.5 H (11.5-15.5) % Neutrophils # 8.0 H (1.3-7.7) k/uL Sodium 130 L (137-145) mmol/L BUN 19 H (7-17) mg/dL Glucose 102 H (74-99) mg/dL Calcium 7.8 L (8.4-10.2) mg/dL Assessment and Plan Plan: Acute upper GI bleed, secondary to Justin's ulcer. The patient also has a gastric polyp and a hiatal hernia. The patient was given Eliquis reversal with Kcentra. The patient received a total of 8 days of packed RBC, 1 unit of platelet, 2 units of fresh frozen plasma and the patient remains on IV Protonix. No active GI bleeding and the patient has a hemoglobin of 8.1 Acute blood loss anemia secondary to massive upper GI bleeding. Hemoglobin is stable Hypotension/hypovolemia, secondary to above, currently hemodynamically stable. Not requiring pressors Atrial fibrillation with rapid ventricular response, with better rate control, patient is currently on p.o. amiodarone and metoprolol Acute diastolic congestive heart failure, stable Acute hypoxemic respiratory failure, currently on 2 L/min nasal cannula History of severe aortic stenosis status post TAVR at outside facility June,; echocardiogram done this admission estimates a left ventricular ejection fraction of 55 to 60%, bioprosthetic aortic valve with mean gradient of 16 mmHg and mild perivalvular regurgitation, mild to moderate MR, moderate pulmonary hypertension, and severe tricuspid regurgitation. History of hypertension History of breast cancer with previous right lumpectomy Plan: Hemodynamically stable. No evidence of any ongoing GI bleeding. Keep anticoagulation on hold Monitor hemoglobin, stable at 8.1 Advance diet IV Protonix EGD was performed and epinephrine was injected into the Justin's ulcer Continue oral amiodarone 400 mg p.o. twice a day Continue metoprolol 50 mg p.o. twice a day Pulmonary critical care services will sign off
[2024-08-09] MEDS: POTASSIUM CHLORIDE ER 20 MEQ TAB.ER PO STA (15:26)
--- NOTE | 2024-08-09 21:46 | P.PN ---
Subjective Patient seen and evaluated at bedside. denies abdominal pain, nausea, vomiting, or bowel movements. Objective - Vital Signs Vital signs: Vital Signs Temp 98.1 F 08/09/24 19:49 Pulse 102 H 08/09/24 19:49 Resp 16 08/09/24 19:49 BP 99/52 08/09/24 19:49 Pulse Ox 94 L 08/09/24 19:49 FiO2 21 08/09/24 15:25 Intake & Output 08/09/24 08/09/24 08/10/24 06:59 18:59 06:59 Intake Total 740 Output Total 100 2000 Balance -100 -1260 Weight 76.9 kg Intake: IV 20 Invasive Line 4 10 Invasive Line 5 10 Oral 720 Output: Urine 100 2000 Other: Voiding Method Toilet Toilet Toilet - Exam gen: nad, pallor has improved cv: tachycardic abd: soft, non distended, no guarding or rebound tenderness pul:non labored - Labs CBC & Chem 7: 08/09/24 07:15 08/09/24 07:15 Labs: Abnormal Lab Results - Last 24 Hours (Table) 08/09/24 08/09/24 Range/Units 07:15 07:15 WBC 10.7 H (3.8-10.6) k/uL RBC 2.56 L (3.80-5.40) m/uL Hgb 8.1 L (11.4-16.0) gm/dL Hct 24.8 L (34.0-46.0) % RDW 16.5 H (11.5-15.5) % Neutrophils # 8.0 H (1.3-7.7) k/uL Sodium 130 L (137-145) mmol/L BUN 19 H (7-17) mg/dL Glucose 102 H (74-99) mg/dL Calcium 7.8 L (8.4-10.2) mg/dL Assessment and Plan Assessment: blood pressur stable, heart rate decreased, hgb relatively stable. infrequent bloody bowel movements, continue to monitor. stable for discharge. Time with Patient: Less than 30
[2024-08-10 06:50] LABS: Anisocytosis Slight; Basophils % (A) 0 %; Eosinophils # (A) 0.3 k/uL (0-0.7); Eosinophils % (A) 3 %; HCT 23.2 % (34.0-46.0); HGB 7.6 gm/dL (11.4-16.0); Hypochromasia Slight; Lymphocytes # (A) 1.3 k/uL (1.0-4.8); Lymphocytes % (A) 17 %; MCH 31.4 pg (25.0-35.0); MCHC 32.9 g/dL (31.0-37.0); MCV 95.5 fL (80.0-100.0); Macrocytosis Slight; Mean Platelet Volume 8.1; Monocytes # (A) 0.6 k/uL (0-1.0); Monocytes % (A) 7 %; Neutrophils # (A) 5.4 k/uL (1.3-7.7); Neutrophils % (A) 71 %; Platelet Count 211 k/uL (150-450); Poikilocytosis Slight; RBC 2.43 m/uL (3.80-5.40); RDW 16.9 % (11.5-15.5); WBC 7.6 k/uL (3.8-10.6)
[2024-08-10 07:09] LABS: African American GFR (CKD) 74 (>60 ml/min/1.73 sqM); Anion Gap 2 mmol/L; Blood Urea Nitrogen 16 mg/dL (7-17); Calcium 7.6 mg/dL (8.4-10.2); Carbon Dioxide 29 mmol/L (22-30); Chloride 102 mmol/L (98-107); Glucose 100 mg/dL (74-99); Magnesium 2.1 mg/dL (1.6-2.3); Non-African American GFR(CKD) 64 (>60 ml/min/1.73 sqM); Potassium 3.9 mmol/L (3.5-5.1); Sodium 133 mmol/L (137-145)
--- NOTE | 2024-08-10 12:13 | P.PN ---
Subjective HISTORY OF PRESENT ILLNESS: Patient is a 89-year-old female with past medical history of severe aortic stenosis status post aortic valve replacement done at [facility] by Dr. Jamison Nice in June 2023. She also has history of hypertension. Patient reports that in June 2024 she was told that she had atrial fibrillation when she was following up with Dr. Hilton Nice. For this she was started on beta-iggy but patient stopped taking it because it made her sick. This time she presented to the hospital because of increased worsening shortness of breath, lower extremity edema and 13 pound weight gain in 2-1/2 weeks. She was also having increased cough. On admission her vitals showed BP 127/79, heart rate 114 bpm, oxygen saturation 91% on 2 L oxygen. Her admission labs showed hemoglobin of 10.8, BUN of 18, creatinine of 0.7, minimal transaminitis, troponin was negative, NT-proBNP 2000, TSH of 2.0. Progress note 08/03/2024 Patient seen and examined at bedside this a.m. Patient reports that her shortness of breath has improved. She is in atrial fibrillation on telemetry which is rate controlled with average heart rate around 80 bpm. 08/04/2024 Patient examined this morning at the bedside. Patient reports improvement in her shortness of breath. She currently denies chest pain or pressure. Bedside telemetry reveals atrial fibrillation with a heart rate between [id number]. Echocardiogram completed revealing ejection fraction 55 to 60%, no obvious regional wall motion abnormalities, mild to moderate mitral regurgitation, normally functioning CASSI bioprosthetic aortic valve with peak gradient 24 mmHg and mean gradient 16 mmHg, no perivalvular aortic regurgitation, severe tricuspid regurgitation. August 06: The patient continues to have GI bleeding although improved. She denies any chest discomfort. She feels tired. She continues to be in atrial fibrillation with rapid ventricle response. Her breathing is unchanged. She has no further vomiting. Her blood pressure has been stable and her urinary output has been stable. She continues to be on IV amiodarone. Chest x-ray shows no acute infiltrate. Her last hemoglobin is 8.2. August 07: The patient feels tired today, has some dyspnea. She continues to be in atrial fibrillation with controlled ventricular response. She has a drop in the hemoglobin and she is scheduled to undergo transfusion today. She had no gross bleeding overnight. She has no nausea or vomiting. Hemodynamically she is stable. She is tolerating p.o. August 08: The patient continues to be in atrial fibrillation with controlled ventricular response. She underwent transfusion yesterday. She is complaining of right arm discomfort with movement. She denies any dizziness or palpitations. She has no significant recurrent bleeding. She is tolerating p.o. She continues to feel fatigued. 08/09/2024 Patient examined this morning at the bedside. Patient denies any chest pain or pressure. She denies shortness of breath. She continues to report pain in her right arm. She states that she feels weak and tired this morning. Telemetry reveals atrial fibrillation with a heart rate in the 80s. 08/10/2024 Patient examined this morning at the bedside. Patient continues to report discomfort in her right arm although improving. She denies chest pain or pressure. Denies shortness of breath. Telemetry reveals atrial fibrillation with controlled ventricular rate. PHYSICAL EXAM: VITAL SIGNS: Reviewed. GENERAL: Well-developed in no acute distress. NECK: Supple. No JVD or thyromegaly LUNGS: Respirations even and unlabored. Lungs essentially clear to auscultation bilaterally. HEART: Irregular rate and rhythm. S1 and S2 heard. Systolic ejection murmur noted. EXTREMITIES: Normal range of motion. No clubbing or cyanosis. Peripheral pulses intact. Trace bilateral lower extremity edema ASSESSMENT: Shortness of breath Acute GI bleed Acute on chronic heart failure with preserved EF, 55 to 60% Permanent atrial fibrillation with RVR History of aortic stenosis status post TAVR, 06/2023 at [facility] Hypertension PLAN: Continue current cardiac medications Continue telemetry monitoring Further recommendations pending patient course Continue to hold anticoagulation. Patient will need to be evaluated on an outpatient basis for left atrial appendage closure device Patient to follow-up postdischarge with Dr. Stephen Nurse practitioner note has been reviewed by physician. Signing provider agrees with the documented findings, assessment, and plan of care documented by CERTIFIED PHARMACIST ASSISTANT as a scribe. Objective - Vital Signs Vital signs: Vital Signs Temp 97.8 F 08/10/24 11:06 Pulse 70 08/10/24 11:06 Resp 16 08/10/24 11:06 BP 92/58 08/10/24 11:06 Pulse Ox 95 08/10/24 11:06 FiO2 21 08/10/24 09:47 Intake & Output 08/09/24 08/10/24 08/10/24 18:59 06:59 18:59 Intake Total 740 250 Output Total 2000 600 Balance -1260 -350 Weight 78.5 kg Intake: IV 20 10 Invasive Line 4 10 Invasive Line 5 10 10 Oral 720 240 Output: Urine 1999 600 Other: Voiding Method Toilet Toilet Toilet - Labs CBC & Chem 7: 08/10/24 06:11 08/10/24 06:11 Labs: Abnormal Lab Results - Last 24 Hours (Table) 08/10/24 08/10/24 Range/Units 06:11 06:11 RBC 2.43 L (3.80-5.40) m/uL Hgb 7.6 L (11.4-16.0) gm/dL Hct 23.2 L (34.0-46.0) % RDW 16.9 H (11.5-15.5) % Sodium 133 L (137-145) mmol/L Glucose 100 H (74-99) mg/dL Calcium 7.6 L (8.4-10.2) mg/dL
--- NOTE | 2024-08-10 14:24 | P.PN ---
Subjective Progress Note Date: 08/10/24 89 year old F with PMH of AFib on Eliquis, AV replacement in 06/2023, HTN initially presented to the ED for shortness of breath. In the ED she underwent extensive evaluation. BP 139/79, NM 133 bpm, RR 20, T 97.7 F, 95% on room air. CBC , Coag panel, CMP significant for RBC 3.78, Hg 10.8, Cl 108, BUN 18, glu 102, AST 59, ALT 53, total protein 6. BNP 2000. Trop < 0.012. TSH 2.08. EKG showing AFib with rapid ventricular rate of 114 bpm, QTc 387 ms. CXR cardiomegaly with small pleural effusions. Admitted for further workup and management. Cardiology consulted, started on Cardizem drip, Lasix IV and Meto prolol PO. Echo showed EF 55-60% with mild-mod MR, normally functioning bioprosthetic AV, severe TR. Patient was noted to have multiple episodes of bloody emesis on 08/04, Eliquis was held and she was started on Protonix IV, given KCentra, transferred to ICU with Surgery and Pulmonary consulted. Unde rwent EGD on 08/05 showing ulcer within the hiatal hernia. Status post 8 unit PRBC, 2 unit FFP and 1 unit Platelets. 08/10 Patient was seen and examined. Feeling well. CBC and BMP significant for RBC 2.43, Hg 7.6, Hc 23.2, Na 133, glu 100, Ca 7.6. General: Nontoxic, no distress, appears at stated age Derm: Warm, dry Head: Atraumatic, normocephalic, symmetric Eyes: EOMI, no lid lag, anicteric sclera, right ptosis Mouth: No lip lesion, mucus membranes moist Cardiovascular: S1S2 reg, no murmur Lungs: CTA bilateral, no rhonchi, no rales, no accessory muscle use Ext: No gross muscle atrophy, no edema, no contractures Neuro: no focal neuro deficits Psych: Alert, oriented, appropriate affect Based on my assessment of this patient, this patient meets a high complexity level of care. Upper GI bleed due to PUD: Status post EGD. Holding Eliquis. Protonix 40 mg PO BID. Surgery on board. Acute diastolic CHF exacerbation: Echo showed EF 55-60% with mild-mod MR, normally functioning bioprosthetic AV, severe TR. Lasix 40 mg IV x 1 08/09 by Cardiology. Farxiga 10 mg PO QD. Metoprolol 50 mg PO TID if BP permits. Cardiology on board. Atrial fibrillation with RVR: Metoprolol as above. Amiodarone 200 mg PO BID. Maintain K > 4 and Mg > 2. No AC due to GI bleed. Telemetry monitoring. Cardiology on board. Superficial thrombosis of the right cephalic vein: As per venous duplex. RUE elevation and warm compress. Vascular Sx consulted. Discharge planning underway. Patient would like to go home. PT saw the patient on 08/07, to re-evaluate tomorrow. Anticipate DC in 1-2 days. CODE STATUS: FULL CODE DVT Prophylaxis: SCD GI Prophylaxis: Protonix PO BID. Designated medical POA if patient is not able to make medical decisions for themselves: I have reviewed the following financial services education consultant notes: Surgery, Cardiology, Pulmonary. I have reviewed the results of the following tests: CBC, BMP. I have ordered the following tests: CBC I have discussed the care of this patient with the following independent ga storian: I have independently interpreted the following test below: I have discussed the management of this patient with the following physician: Objective - Vital Signs Vital signs: Vital Signs Temp 98.4 F 08/10/24 03:40 Pulse 90 08/10/24 03:40 Resp 18 08/10/24 03:40 BP 107/66 08/10/24 03:40 Pulse Ox 95 08/10/24 03:40 FiO2 21 08/09/24 15:25 Intake & Output 08/09/24 08/10/24 08/10/24 18:59 06:59 18:59 Intake Total 740 Output Total 2000 400 Balance -1260 -400 Weight 78.5 kg Intake: IV 20 Invasive Line 4 10 Invasive Line 5 10 Oral 720 Output: Urine 2000 400 Other: Voiding Method Toilet Toilet - Labs CBC & Chem 7: 08/10/24 06:11 08/10/24 06:11 Labs: Abnormal Lab Results - Last 24 Hours (Table) 08/10/24 08/10/24 Range/Units 06:11 06:11 RBC 2.43 L (3.80-5.40) m/uL Hgb 7.6 L (11.4-16.0) gm/dL Hct 23.2 L (34.0-46.0) % RDW 16.9 H (11.5-15.5) % Sodium 133 L (137-145) mmol/L Glucose 100 H (74-99) mg/dL Calcium 7.6 L (8.4-10.2) mg/dL
--- NOTE | 2024-08-10 14:29 | P.PN ---
Subjective Patient seen and evaluated at bedside. denies abdominal pain, nausea, vomiting, or bowel movements. Objective - Vital Signs Vital signs: Vital Signs Temp 97.8 F 08/10/24 11:06 Pulse 70 08/10/24 11:06 Resp 16 08/10/24 11:06 BP 92/58 08/10/24 11:06 Pulse Ox 95 08/10/24 11:06 FiO2 21 08/10/24 09:47 Intake & Output 08/09/24 08/10/24 08/10/24 18:59 06:59 18:59 Intake Total 740 490 Output Total 2000 600 Balance -1260 -110 Weight 78.5 kg Intake: IV 20 10 Invasive Line 4 10 Invasive Line 5 10 10 Oral 720 480 Output: Urine 1999 600 Other: Voiding Method Toilet Toilet Toilet - Exam gen: nad, pallor has improved cv: tachycardic abd: soft, non distended, no guarding or rebound tenderness pul:non labored - Labs CBC & Chem 7: 08/10/24 06:11 08/10/24 06:11 Labs: Abnormal Lab Results - Last 24 Hours (Table) 08/10/24 08/10/24 Range/Units 06:11 06:11 RBC 2.43 L (3.80-5.40) m/uL Hgb 7.6 L (11.4-16.0) gm/dL Hct 23.2 L (34.0-46.0) % RDW 16.9 H (11.5-15.5) % Sodium 133 L (137-145) mmol/L Glucose 100 H (74-99) mg/dL Calcium 7.6 L (8.4-10.2) mg/dL Assessment and Plan Assessment: 89 yo female w/ gi bleed, resolved no recent bloody bowel movements in the last 2 days blood pressur stable, heart rate decreased, hgb relatively stable stable for discharge.
[2024-08-11 06:24] LABS: Anisocytosis Slight; HCT 24.8 % (34.0-46.0); HGB 7.7 gm/dL (11.4-16.0); Hypochromasia Moderate; MCH 29.9 pg (25.0-35.0); MCV 96.4 fL (80.0-100.0); Macrocytosis Slight; Mean Platelet Volume 7.9; Platelet Count 287 k/uL (150-450); Poikilocytosis Slight; RBC 2.57 m/uL (3.80-5.40); RDW 16.2 % (11.5-15.5); WBC 7.5 k/uL (3.8-10.6)
[2024-08-11] MEDS: FUROSEMIDE 40 MG TAB PO SCH (10:15)
[2024-08-11 11:18] VITALS: BMI 33.6
--- NOTE | 2024-08-11 12:04 | P.PN ---
Subjective Progress Note Date: 08/11/24 HISTORY OF PRESENT ILLNESS: Patient is a 89-year-old female with past medical history of severe aortic s tenosis status post aortic valve replacement done at [facility] by Dr. Jamison Nice in June 2023. She also has history of hypertension. Patient reports that in June 2024 she was told that she had atrial fibrillation when she was following up with Dr. Hilton Nice. For this she was started on beta-iggy but patient stopped taking it because it made her sick. This time she presented to the hospital because of increased worsening shortness of breath, lower extremity edema and 13 pound weight gain in 2-1/2 weeks. She was also having increased cough. On admission her vitals showed BP 127/79, heart rate 114 bpm, oxygen saturation 91% on 2 L oxygen. Her admission labs showed hemoglobin of 10.8, BUN of 18, creatinine of 0.7, minimal transaminitis, troponin was negative, NT-proBNP 2000, TSH of 2.0. Progress note 08/03/2024 Patient seen and examined at bedside this a.m. Patient reports that her shortness of breath has improved. She is in atrial fibrillation on telemetry which is rate controlled with average heart rate around 80 bpm. 08/04/2024 Patient examined this morning at the bedside. Patient reports improvement in her shortness of breath. She currently denies chest pain or pressure. Bedside telemetry reveals atrial fibrillation with a heart rate between [id number]. Echocardiogram completed revealing ejection fraction 55 to 60%, no obvious regional wall motion abnormalities, mild to moderate mitral regurgitation, normally functioning CASSI bioprosthetic aortic valve with peak gradient 24 mmHg and mean gradient 16 mmHg, no perivalvular aortic regurgitation, severe tricuspid regurgitation. August 06: The patient continues to have GI bleeding although improved. She denies any chest discomfort. She feels tired. She continues to be in atrial fibrillation with rapid ventricle response. Her breathing is unchanged. She has no further vomiting. Her blood pressure has been stable and her urinary output has been stable. She continues to be on IV amiodarone. Chest x-ray shows no acute infiltrate. Her last hemoglobin is 8.2. August 07: The patient feels tired today, has some dyspnea. She continues to be in atrial fibrillation with controlled ventricular response. She has a drop in the hemoglobin and she is scheduled to undergo transfusion today. She had no gross bleeding overnight. She has no nausea or vomiting. Hemodynamically she is stable. She is tolerating p.o. August 08: The patient continues to be in atrial fibrillation with controlled ventricular response. She underwent transfusion yesterday. She is complaining of right arm discomfort with movement. She denies any dizziness or palpitations. She has no significant recurrent bleeding. She is tolerating p.o. She continues to feel fatigued. 08/09/2024 Patient examined this morning at the bedside. Patient denies any chest pain or pressure. She denies shortness of breath. She continues to report pain in her right arm. She states that she feels weak and tired this morning. Telemetry reveals atrial fibrillation with a heart rate in the 80s. 08/10/2024 Patient examined this morning at the bedside. Patient continues to report discomfort in her right arm although improving. She denies chest pain or pressure. Denies shortness of breath. Telemetry reveals atrial fibrillation with controlled ventricular rate. 08/11 Patient seen and examined. Blood pressure 111/73, heart rate 86, pulse ox 96% on room air. Repeat blood work reveals hemoglobin 7.7. Telemetry is atrial fibrillation with controlled ventricular rate. Patient states that she wants to go home. She complains of swelling to the RUE which worsened overnight. She has been seen by vascular surgeon this morning. US duplex negative for DVT. SHe had her first BM today since she arrived and there was no blood or blackness. She has a dry cough. Noted that patient's beta-iggy has been hold on a few occasions due to parameters which we will adjust. PHYSICAL EXAM: VITAL SIGNS: Reviewed. GENERAL: Well-developed in no acute distress. NECK: Supple. No JVD or thyromegaly LUNGS: Respirations even and unlabored. Lungs essentially clear to auscultation bilaterally. HEART: Irregular rate and rhythm. S1 and S2 heard. Systolic ejection murmur noted. EXTREMITIES: No clubbing or cyanosis. Peripheral pulses intact. Trace bilateral lower extremity edema ASSESSMENT: Shortness of breath Acute GI bleed with acute blood loss anemia status posttransfusion to 8 units packed RBCs, 2 units fresh frozen plasma and 1 unit platelets Acute on chronic heart failure with preserved EF, 55 to 60% Permanent atrial fibrillation with RVR, currently rate controlled History of aortic stenosis status post TAVR, 06/2023 at [facility] Hypertension PLAN: Continue current cardiac medications amiodarone 200 mg twice daily, Farxiga 10 mg daily Regarding metoprolol tartrate 50 mg 3 times daily, parameters changed to hold if systolic blood pressure less than 90 Add Lasix 40 mg daily oral If patient's heart rate and blood pressure stable by this afternoon, patient is cleared for discharge from cardiology, Dr. Stephen, in 2 weeks. Continue to hold anticoagulation. Patient will need to be evaluated on an outpatient basis for left atrial appendage closure device Nurse practitioner note has been reviewed by physician. Signing provider agrees with the documented findings, assessment, and plan of care documented by HAND SCRAPER as a scribe. Objective - Vital Signs Vital signs: Vital Signs Temp 97.8 F 08/11/24 03:54 Pulse 86 08/11/24 03:54 Resp 18 08/11/24 03:54 BP 111/73 08/11/24 03:54 Pulse Ox 96 08/11/24 03:54 FiO2 21 08/10/24 09:47 Intake & Output 08/10/24 08/11/24 08/11/24 18:59 06:59 18:59 Intake Total 730 540 Output Total 1100 150 Balance -370 390 Weight 80.8 kg Intake: IV 10 Invasive Line 5 10 Oral 720 540 Output: Urine 1100 150 Other: Voiding Method Toilet Toilet # Voids 2 - Labs CBC & Chem 7: 08/11/24 05:45 08/10/24 06:11 Labs: Abnormal Lab Results - Last 24 Hours (Table) 08/11/24 Range/Units 05:45 RBC 2.57 L (3.80-5.40) m/uL Hgb 7.7 L (11.4-16.0) gm/dL Hct 24.8 L (34.0-46.0) % RDW 16.2 H (11.5-15.5) %
--- NOTE | 2024-08-11 12:23 | P.GSCN ---
History of Present Illness Consult date: 08/11/24 Reason for Consult: Right upper extremity superficial venous thrombosis Requesting physician: Shakir Kapoor History of present illness: This a pleasant 89-year-old female who has been hospitalized for last 10 days duration and initially came in with lower extremity edema, shortness of breath and admitted for A-fib with RVR and heart failure. She was started on Eliquis for atrial fibrillation, during this hospitalization she had hematemesis and became hypotensive and transferred to the ICU. Eliquis was subsequently stopped. General surgery was consulted and patient subsequently underwent upper endoscopy with findings of bleeding Justin's ulcer status post epi injection. Patient states she has had multiple IVs started noticing swelling in her right upper extremity where she had a previous IV. She had a venous duplex that showed a superficial venous thrombosis of the cephalic vein and vascular surgery was consulted. Patient states that she has tenderness to palpation in that right arm. Full range of motion. Again states there were multiple IVs her last IV was taken out couple days ago. Review of Systems A 14 point review systems was completed all pertinent positives and negatives as stated in the HPI. Past Medical History Past Medical History: Atrial Fibrillation, Hypertension, Pneumonia Additional Past Medical History / Comment(s): hx. of breast mass in 2005, heart murmur History of Any Multi-Drug Resistant Organisms: None Reported Past Surgical History: Breast Surgery, Cardiac Valve Replacement, Hysterectomy Additional Past Surgical History / Comment(s): right breast biopsy, colonoscopy, mastoid surg. as child, aortic valve replacement 2023, R eye cataract sx Past Anesthesia/Blood Transfusion Reactions: No Reported Reaction Past Psychological History: No Psychological Hx Reported Smoking Status: Never smoker Past Alcohol Use History: None Reported Past Drug Use History: None Reported - Past Family History Sister(s) Family Medical History: Cancer Additional Family Medical History / Comment(s): breast Medications and Allergies Home Medications Medication Instructions Recorded Confirmed Type Apixaban [Eliquis] 2.5 mg PO BID 08/01/24 08/01/24 History Calcium Carbonate [Calcium] 600 mg PO Q48H 08/01/24 08/01/24 History Cholecalciferol (Vitamin D3) 50 mcg PO DAILY 08/01/24 08/01/24 History [Vitamin D3 (50 Mcg = 2000 Iu)] Zora C 1000mg 1 tab PO DAILY 08/01/24 08/01/24 History Pantothenic Acid (Unknown Dose) 1 tab PO DAILY 08/01/24 08/01/24 History Potassium Gluconate 99 mg PO DAILY 08/01/24 08/01/24 History amLODIPine [Norvasc] 10 mg PO DAILY 08/01/24 08/01/24 History Allergies Allergy/AdvReac Type Severity Reaction Status Date / Time Penicillins Allergy Rash/Hives Verified 08/01/24 16:38 Sulfa (Sulfonamide AdvReac Nausea & Verified 08/01/24 16:38 Antibiotics) Vomiting Surgical - Exam Vital Signs Temp Pulse Resp BP Pulse Ox 97.7 F 133 H 20 139/79 95 08/01/24 15:39 08/01/24 15:39 08/01/24 15:39 08/01/24 15:39 08/01/24 15:39 General appearance: The patient is alert, oriented, appears in no acute distress. HET: Head is normocephalic and atraumatic. Pupils are equal and reactive. Neck: Supple. Heart: Regular. Lungs: Equal expansion, normal respiratory effort. Abdomen: Soft, nontender, nondistended. Extremities: Normal skin turgor, bruising to upper extremities. Right upper extremity swelling from axillary down through fingers. Full range of motion. Palpable radial pulse. Bilateral lower extremity edema. Neurological: Alert and oriented. Results - Labs 08/11/24 05:45 08/10/24 06:11 Abnormal Lab Results - Last 24 Hours (Table) 08/11/24 Range/Units 05:45 RBC 2.57 L (3.80-5.40) m/uL Hgb 7.7 L (11.4-16.0) gm/dL Hct 24.8 L (34.0-46.0) % RDW 16.2 H (11.5-15.5) % - Imaging Comments: Venous duplex right upper extremity with superficial venous thrombosis of the cephalic vein. Assessment and Plan Assessment: 1. Right upper extremity superficial venous thrombosis of cephalic vein 2. Recent upper GI bleed 3. Atrial fibrillation 4. Heart failure 5. Aortic stenosis status post recent TAVR Plan: 1. Continue to elevate right upper extremity 2. Add compression stocking to right upper extremity or Arturo wrap to improve swelling 3. There is no indication for any vascular surgical intervention 4. No indication for any anticoagulation especially in the setting of recent GI bleed and anemia Thank you for this consultation, vascular surgery will sign off. The impression and plan of care has been dictated as directed. I performed a history and examination of this patient, discussed the same with the dictator. I agree with the dictator's note ,documented as a scribe. Any additional findings or plans will be noted.
--- NOTE | 2024-08-11 13:12 | P.PN ---
Subjective Progress Note Date: 08/11/24 SURGICAL PROGRESS NOTE CHIEF COMPLAINT: GI bleed HISTORY OF PRESENT ILLNESS: Patient denies any abdominal pain. She reports no further blood in her stools. It has been a couple days since her last bowel movement. She is tolerating diet. Hemoglobin stable at 7.7. She is hoping to be discharged today. PHYSICAL EXAM: VITAL SIGNS: Reviewed. GENERAL: Well-developed in no acute distress. ABDOMEN: Soft. Nondistended. Nontender. NEUROLOGIC: Alert and oriented. Cranial nerves II through XII grossly intact. ASSESSMENT: 1. 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 Acute blood loss anemia due to GI bleed 3. Atrial fibrillation PLAN: -Patient can be discharged from surgical standpoint -Continue PPI -Continue to hold anticoagulation Physician Silk Spotter note has been reviewed by physician. Signing provider agrees with the documented findings, assessment, and plan of care. Attestation Patient seen and examined at bedside. Presented with chief complaint of GI bleed. No further blood in stool. Hemoglobin is stable. Continue PPI. Surgically stable for discharge. Edis Cuevas DO Objective - Vital Signs Vital signs: Vital Signs Temp 97.4 F L 08/11/24 07:50 Pulse 114 H 08/11/24 08:00 Resp 17 08/11/24 08:00 BP 111/71 08/11/24 07:50 Pulse Ox 98 08/11/24 07:50 FiO2 21 08/10/24 09:47 Intake & Output 08/10/24 08/11/24 08/11/24 18:59 06:59 18:59 Intake Total 730 540 240 Output Total 1100 150 Balance -370 390 240 Weight 80.8 kg 80.8 kg Intake: IV 10 Invasive Line 5 10 Oral 720 540 240 Output: Urine 1100 150 Other: Voiding Method Toilet Toilet Toilet # Voids 2 - Labs CBC & Chem 7: 08/11/24 05:45 08/10/24 06:11 Labs: Abnormal Lab Results - Last 24 Hours (Table) 08/11/24 Range/Units 05:45 RBC 2.57 L (3.80-5.40) m/uL Hgb 7.7 L (11.4-16.0) gm/dL Hct 24.8 L (34.0-46.0) % RDW 16.2 H (11.5-15.5) %
--- NOTE | 2024-08-11 13:36 | P.DS ---
Providers Date of admission: 08/01/24 19:23 Expected date of discharge: 08/11/24 Attending physician: Shanell Mario MD Consults: 08/01/24 19:22 Consult Physician Routine Consulting Provider: Doug Stephen Consult Reason/Comments: chf, afib Do you want consulting provider notified?: Yes 08/04/24 20:46 Consult Physician Routine Consulting Provider: Isaiah Olivares Consult Reason/Comments: acute GI bleed Do you want consulting provider notified?: Yes 08/04/24 20:55 Consult Physician Routine Consulting Provider: Terri Trujillo Consult Reason/Comments: ICU management Do you want consulting provider notified?: Already Contacted 08/09/24 12:10 Consult Physician Routine Consulting Provider: Bry Jerome Consult Reason/Comments: Superficial venous thrombosis RUE Do you want consulting provider notified?: Yes Primary care physician: Juanpablo [facility] Course: 89 year old F with PMH of AFib on Eliquis, AV replacement in 06/2023, HTN initially presented to the ED for shortness of breath. In the ED she underwent extensive evaluation. BP 139/79, VA 133 bpm, RR 20, T 97.7 F, 95% on room air. CBC , Coag panel, CMP significant for RBC 3.78, Hg 10.8, Cl 108, BUN 18, glu 102, AST 59, ALT 53, total protein 6. BNP 2000. Trop < 0.012. TSH 2.08. EKG showing AFib with rapid ventricular rate of 114 bpm, QTc 387 ms. CXR cardiomegaly with small pleural effusions. Admitted for further workup and management. Cardiology consulted, started on Cardizem drip, Lasix IV and Metoprolol PO. Echo showed EF 55-60% with mild-mod MR, normally functioning bioprosthetic AV, severe TR. Patient was noted to have multiple episodes of bloody emesis on 08/04, Eliquis was held and she was started on Protonix IV, given KCentra, transferred to ICU with Surgery and Pulmonary consulted. Underwent EGD on 08/05 showing ulcer within the hiatal hernia. Status post 8 unit PRBC, 2 unit FFP and 1 unit Platelets. 08/10 Patient was seen and examined. Feeling well. CBC and BMP significant for RBC 2.43, Hg 7.6, Hc 23.2, Na 133, glu 100, Ca 7.6. 08/11 Patient was seen and examined. RUE pain improving. Feeling well. Would like to go home. Vascular surgery evaluated, conservative management for superficial thrombus of the right cephalic vein. Discussed with Nicol VALLEJO, continue Metoprolol 50 mg PO TID with parameters to hold Metoprolol if systolic BP is < 90. CBC significant for RBC 2.57, Hg 7.7, Hct 24.8. Discharge Instructions: Prescriptions sent for Amiodarone, Lasix, Metoprolol, Farxiga and Protonix. Discontinue Eliquis. Please monitor your blood pressure 3 times a day. Hold your dose of Metoprolol if your systolic blood pressure is less than 90. Follow up with PCP within 1-2 days of discharge. Follow up with Cardiology on 08/14 and Surgery within 1 week of discharge. General: Nontoxic, no distress, appears at stated age Derm: Warm, dry Head: Atraumatic, normocephalic, symmetric Eyes: EOMI, no lid lag, anicteric sclera, right ptosis Mouth: No lip lesion, mucus membranes moist Cardiovascular: S1S2 irreg, no murmur Lungs: CTA bilateral, no rhonchi, no rales, no accessory muscle use Ext: No gross muscle atrophy, no edema, no contractures, RUE swelling improved. Neuro: no focal neuro deficits Psych: Alert, oriented, appropriate affect Discharge Diagnosis: Upper GI bleed due to PUD Acute diastolic CHF exacerbation Atrial fibrillation with RVR Superficial thrombosis of the right cephalic vein This complex dishcarge took 35 minutes to complete. Patient Condition at Discharge: Stable Plan - Discharge Summary Discharge Rx Participant: No New Discharge Prescriptions: New Amiodarone [Cordarone] 200 mg PO BID #60 tab Furosemide [Lasix] 40 mg PO DAILY #30 tab Metoprolol Tartrate [Lopressor] 50 mg PO TID #90 tab Dapagliflozin Propanediol [Farxiga] 10 mg PO DAILY #30 tab Pantoprazole [Protonix] 40 mg PO AC-BID #60 tab Acetaminophen Tab [Tylenol] 650 mg PO Q4HR PRN tab PRN Reason: Fever And/ Or Pain Continue Calcium Carbonate [Calcium] 600 mg PO Q48H Zora C 1000mg 1 tab PO DAILY Pantothenic Acid (Unknown Dose) 1 tab PO DAILY Potassium Gluconate 99 mg PO DAILY Cholecalciferol (Vitamin D3) [Vitamin D3 (50 Mcg = 2000 Iu)] 50 mcg PO DAILY Discontinued Apixaban [Eliquis] 2.5 mg PO BID amLODIPine [Norvasc] 10 mg PO DAILY Discharge Medication List Calcium Carbonate [Calcium] 600 mg PO Q48H 08/01/24 [History] Cholecalciferol (Vitamin D3) [Vitamin D3 (50 Mcg = 2000 Iu)] 50 mcg PO DAILY 08/01/24 [History] Zora C 1000mg 1 tab PO DAILY 08/01/24 [History] Pantothenic Acid (Unknown Dose) 1 tab PO DAILY 08/01/24 [History] Potassium Gluconate 99 mg PO DAILY 08/01/24 [History] Acetaminophen Tab [Tylenol] 650 mg PO Q4HR PRN tab 08/11/24 [Rx] Amiodarone [Cordarone] 200 mg PO BID #60 tab 08/11/24 [Rx] Dapagliflozin Propanediol [Farxiga] 10 mg PO DAILY #30 tab 08/11/24 [Rx] Furosemide [Lasix] 40 mg PO DAILY #30 tab 08/11/24 [Rx] Metoprolol Tartrate [Lopressor] 50 mg PO TID #90 tab 08/11/24 [Rx] Pantoprazole [Protonix] 40 mg PO AC-BID #60 tab 08/11/24 [Rx] Follow up Appointment(s)/Referral(s): Doug Stephen MD [STAFF PHYSICIAN] - 08/14/24 Juanpablo Emmanuel DO [Primary Care Provider] - 1-2 days Isaiah Olivares DO [Doctor of Osteopathic Medicine] - 1 Week [facility] Visiting Nurse, [NON-STAFF] - 1 Week Activity/Diet/Wound Care/Special Instructions: Please monitor your blood pressure 3 times a day. Hold your dose of Metoprolol if your systolic blood pressure is less than 90. Discharge Disposition: HOME SELF-CARE
[2024-08-11 16:39] VITALS: BP 105/68; PULSE 102; RESP 17; TEMP 98.2
== END 2024-08-11 16:32 | disposition home or self-care (01) | DRG 291 ==
LOC: EC 15:21 → 3SCARD 19:23 → 2SICU 08-04 21:10 → 3SCARD 08-08 11:53
PROVIDERS: ADMIT Student in an Organized Health Care Education/Training Program; ATTEND Student in an Organized Health Care Education/Training Program
PROC: 0W3P8ZZ Control Bleeding in Gastrointestinal Tract, Via Natural or Artificial Opening Endoscopic (ICD-10-PCS; principal; 2024-08-04)
PROC: 30283B1 Transfusion of Nonautologous 4-Factor Prothrombin Complex Concentrate into Vein, Percutaneous Approach (ICD-10-PCS; 2024-08-04)
PROC: 30233P1 Transfusion of Nonautologous Frozen Red Cells into Peripheral Vein, Percutaneous Approach (ICD-10-PCS; 2024-08-05)
PROC: 30233N1 Transfusion of Nonautologous Red Blood Cells into Peripheral Vein, Percutaneous Approach (ICD-10-PCS; 2024-08-05)
PROC: 30233R1 Transfusion of Nonautologous Platelets into Peripheral Vein, Percutaneous Approach (ICD-10-PCS; 2024-08-05)
DX: I11.0 Hypertensive heart disease with heart failure (principal); I50.33 Acute on chronic diastolic (congestive) heart failure; K25.4 Chronic or unspecified gastric ulcer with hemorrhage; J96.01 Acute respiratory failure with hypoxia; I82.611 Acute embolism and thrombosis of superficial veins of right upper extremity; D62 Acute posthemorrhagic anemia; E83.51 Hypocalcemia; E86.1 Hypovolemia; E87.1 Hypo-osmolality and hyponatremia; I48.21 Permanent atrial fibrillation; I27.20 Pulmonary hypertension, unspecified; E11.65 Type 2 diabetes mellitus with hyperglycemia; Z95.3 Presence of xenogenic heart valve; K76.1 Chronic passive congestion of liver; E87.3 Alkalosis; I47.10 Supraventricular tachycardia, unspecified; K31.7 Polyp of stomach and duodenum; I95.9 Hypotension, unspecified; K44.9 Diaphragmatic hernia without obstruction or gangrene; I35.0 Nonrheumatic aortic (valve) stenosis; I08.3 Combined rheumatic disorders of mitral, aortic and tricuspid valves; Z79.01 Long term (current) use of anticoagulants; Z79.899 Other long term (current) drug therapy; Z85.3 Personal history of malignant neoplasm of breast; Z87.01 Personal history of pneumonia (recurrent); Z28.311 Partially vaccinated for COVID-19; Z88.0 Allergy status to penicillin; Z88.2 Allergy status to sulfonamides
CPT/HCPCS: 36415; 43243; 71045; 71046; 80048; 80053; 80061; 82310; 82728; 83036; 83540; 83550; 83735; 83880; 84132; 84439; 84443; 84481; 84484; 85025; 85027; 85610; 85730; 86850; 86900; 86901; 86920; 93005; 93306; 94760; 96365; 96366; 96375; 96376; 99291